=== PATIENT | female | born 1980 | race Caucasian/White ===

== ENCOUNTER 2017-09-10 18:17 | Emergency (ER) | payer OTHER ==
[2017-09-10] MEDS ORDERED: Aspirin Low Dose CHEW TAB* 81 MG PO ONE (21:05)
[2017-09-10 21:29] LABS: Hematocrit 41 % (35-47); Hemoglobin 13.6 g/dl (12.0-16.0); Mean Corpuscular HGB Conc 33 g/dl (31-36); Mean Corpuscular Hemoglobin 29 pg (27-31); Mean Corpuscular Volume 87 fL (80-97); Mean Platelet Volume 8 um3 (7.4-10.4); Red Blood Count 4.67 10^6/ul (4.0-5.4); Red Cell Distribution Width 13 % (10.5-15); White Blood Count 13.3 10^3/ul (3.5-10.8)
--- NOTE | 2017-09-10 21:42 | RAD ---
Indication: Chest pain. History of tobacco use. Comparison: September 21, 2014 Technique: Upright AP 2115 hours Report: Mild prominence of the lower lung zone interstitial markings without change. Negative for pleural effusion or pneumothorax. The heart, pulmonary vasculature, and mediastinal contours are unremarkable. IMPRESSION: No evidence for acute intrathoracic disease.
[2017-09-10 21:49] LABS: Albumin 3.8 g/dL (3.2-5.2); BUN/Creatinine Ratio 12.7 (8-20); Calcium 9.1 mg/dL (8.6-10.3); EGFR African American 160.8 (>60); EGFR Non-African American 125.1 (>60); Globulin 3.1 g/dL (2-4); Potassium 3.5 mmol/L (3.5-5.0); Total Bilirubin 0.3 mg/dL (0.2-1.0); Total Protein 6.9 g/dL (6.4-8.9)
[2017-09-10] MEDS ORDERED: Iohexol 350* (CONTRAST) 500 ML MDV IV ONE (21:51)
[2017-09-10] MEDS ORDERED: traMADol TAB* 50 MG PO ONE (22:56)
[2017-09-11 00:51] VITALS: BP 160/90
--- NOTE | 2017-09-11 07:37 | RAD ---
INDICATION: Pleuritic chest pain. COMPARISON: Comparison is made with a prior CT of the chest from October 28, 2013 and a prior chest x-ray study from September 10, 2017. TECHNIQUE: A CT angiogram of the chest was performed with intravenous following intravenous injection of 84 ml of Omnipaque 350 nonionic contrast. Contiguous axial sections were obtained from the lung apices through the lung bases. Images were reconstructed in the coronal and sagittal planes. FINDINGS: There is relatively homogeneous opacification of the pulmonary arteries. No intraluminal filling defect or pulmonary embolism is seen. The heart is within normal limits in size. No pericardial effusion is present. The thoracic aorta is normal in caliber and demonstrates homogeneous contrast opacification. There is a 2.8 x 2.4 cm mass present in the anterior mediastinum. This is located anterior to the ascending thoracic aorta and is unchanged from the prior study and likely of thymic origin. There are mildly prominent precarinal and subcarinal lymph nodes measuring up to 1 cm in transverse dimension which are unchanged. No enlarged hilar lymph nodes are seen. The lungs are clear. No pleural effusion is seen. Images of the upper abdomen demonstrate mild hepatomegaly and hepatic steatosis. No acute finding is seen. There is a moderate compression fracture involving the superior endplate of the L1 vertebral body which appears chronic although new from the study from 2013. IMPRESSION: 1. NO EVIDENCE FOR PULMONARY EMBOLISM. 2. 2.8 CM ANTERIOR MEDIASTINAL MASS UNCHANGED FROM THE PRIOR STUDY. 3. CHRONIC APPEARING COMPRESSION FRACTURE OF THE L1 VERTEBRAL BODY ALTHOUGH NEW FROM THE PREVIOUS EXAM. 4. MILD HEPATOMEGALY AND HEPATIC STEATOSIS.
--- NOTE | 2017-09-13 19:01 | ED ---
Veena Shahid Thomas, scribed for Nate Moreno MD on 09/10/17 at 2142 . HPI Chest Pain - HPI Summary HPI Summary: The pt is a 37 y/o F presenting to the ED c/o chest pain that began this afternoon. The pain is rated 7/10. The pain is aggravated by breathing and is alleviated by nothing. 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 Pt additionally c/o shortness of breath, heartburn, ankle pain, left back pain and left shoulder pain. Pt denies any trauma or blood clots. She is a smoker. - History of Current Complaint Chief Complaint: EDChestWallPain Time Seen by Provider: 09/10/17 20:39 Hx Obtained From: Patient Hx Last Menstrual Period: 10/05/2012 Onset/Duration: Started Hours Ago - This afternoon Timing: Constant Current Severity: Moderate Pain Intensity: 8 Pain Scale Used: 0-10 Numeric Chest Pain Location: Mid Sternal Chest Pain Radiates: Yes Chest Pain Radiates To:: Back - Left back, Shoulder - Left shouler Aggravating Factor(s): Movement Alleviating Factor(s): Other: Associated Signs and Symptoms: Positive: Other: - Chest pain, shortness of breath, heartburn, ankle pain, left back pain and left shoulder pain; NEGATIVE: trauma, blood clots - Allergy/Home Medications Allergies/Adverse Reactions: Allergies Allergy/AdvReac Type Severity Reaction Status Date / Time No Known Allergies Allergy Verified 05/01/15 15:08 PMH/Surg Hx/FS Hx/Imm Hx Previously Healthy: No Endocrine/Hematology History: Denies: Hx Diabetes, Hx Thyroid Disease Cardiovascular History: Denies: Hx Congestive Heart Failure, Hx Deep Vein Thrombosis, Hx Hypertension , Other Cardiovascular Problems/Disorders Respiratory History: Denies: Hx Asthma, Hx Chronic Obstructive Pulmonary Disease (COPD), Other Respiratory Problems/Disorders GI History: Denies: Hx Ulcer, Other GI Disorders History: Denies: Hx Renal Disease, Other Problems/Disorders - Surgical History Surgery Procedure, Year, and Place: Csections Infectious Disease History: No Infectious Disease History: Denies: Hx Hepatitis, Hx Human Immunodeficiency Virus (HIV), Traveled Outside the US in Last 30 Days - Family History Known Family History: Positive: Other - DVT - Social History Occupation: Unemployed Lives: With Family Alcohol Use: Rare Hx Substance Use: No Substance Use Type: Reports: None Hx Tobacco Use: Yes Smoking Status (MU): Current Every Day Smoker Review of Systems Negative: Fever, Chills Negative: Erythema Negative: Sore Throat Positive: Chest Pain, Other - Heart burn Positive: Shortness Of Breath. Negative: Cough Negative: Abdominal Pain, Vomiting, Nausea Negative: dysuria, hematuria Positive: Other - Ankle pain, left back pain, left shoulder pain. Negative: Myalgia, Edema Negative: Rash Neurological: Other - NEGATIVE: dizziness, trauma All Other Systems Reviewed And Are Negative: Yes Physical Exam - Summary Physical Exam Summary: Constitutional: Well-developed, Well-nourished, Alert. (-) Distressed. She is obese. Skin: Warm, Dry HENT: Normocephalic; Atraumatic Eyes: Conjunctiva normal Neck: Musculoskeletal ROM normal neck. (-) JVD, (-) Stridor, (-) Tracheal deviation Cardio: Rhythm regular, rate normal, Heart sounds normal; Intact distal pulses; The pedal pulses are 2+ and symmetric. Radial pulses are 2+ and symmetric. (-) Murmur Pulmonary/Chest wall: Effort normal. (-) Respiratory distress, (-) Wheezes, (-) Rales Abd: Soft, (-) Tenderness, (-) Distension, (-) Guarding, (-) Rebound Musculoskeletal: (-) Edema. There is no reproducible chest pain. Lymph: (-) Cervical adenopathy Neuro: Alert, Oriented x3 Psych: Mood and affect Normal Triage Information Reviewed: Yes Vital Signs On Initial Exam: Initial Vitals Temp Pulse Resp BP Pulse Ox 97.2 F 88 18 163/106 96 09/10/17 18:21 09/10/17 18:21 09/10/17 18:21 09/10/17 18:21 09/10/17 18:21 Vital Signs Reviewed: Yes - Efren Coma Scale Coma Scale Total: 15 Diagnostics - Vital Signs Vital Signs Temp Pulse Resp BP Pulse Ox 09/10/17 18:21 97.2 F 88 18 163/106 96 - Laboratory Result Diagrams: 09/10/17 21:24 09/10/17 21:24 Lab Statement: Any lab studies that have been ordered have been reviewed, and results considered in the medical decision making process. - Radiology CXR Xray Interpretation: No Acute Changes - No evidence for acute intrathoracic disease. ED physician has reviewed this report and agrees. Radiology Interpretation Completed By: Radiologist - CT CTA Chest/Thorax CT Interpretation: No Acute Changes - No focal consolidation, pleural effusion or pneumothorax. No evidence for pulmonary embolism or aortic dissection. 3.1cmx2.5cm round mass in the anterior superior mediastinum which could represent adenopathy or a thymic mass. Probable hepatomegaly. Chronic appearing compression fracture of L2. ED physician has reviewed this report and agrees. CT Interpretation Completed By: Radiologist Re-Evaluation - Re-Evaluation First Eval Re-Evaluation Time: 23:14 Change: Unchanged Comment: She has reproducible chest pain when she moves her left shoulder over to the right. She was informed of the diagnoseses of thymic mass versus mediastinal lymphadenopathy. Chest Pain Course/Dx - Course Assessment/Plan: The pt is a 37 y/o F presenting to the ED c/o chest pain that began this afternoon. The pain is rated 7/10. The pain is aggravated by breathing and is alleviated by nothing. 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 Pt additionally c/o shortness of breath, heartburn, ankle pain, left back pain and left shoulder pain. Pt denies any trauma or blood clots. She is a smoker. In the ED course the patient was given Aspirin. Bloodwork shows WBC 13.3. The CXR indicates no evidence for acute intrathoracic disease. The CTA Chest/Thorax shows no focal consolidation, pleural effusion or pneumothorax, no evidence for pulmonary embolism or aortic dissection, 3.1cmx2.5cm round mass in the anterior superior mediastinum which could represent adenopathy or a thymic mass, probable hepatomegaly and chronic appearing compression fracture of L2. She was informed of the diagnoseses of thymic mass versus mediastinal lymphadenopathy. She is diagnosed with chest pain unspecified, thymic mass, mediastinal lymphadenopathy, and HTN. She was given information about the DASH diet. The patient is signed out to the next ED attending at shift change pending second troponin. She will follow up with Dr. Cruz in 2-3 days. - Diagnoses Provider Diagnoses: Chest pain, unspecified, Thymic mass, HTN (hypertension), Mediastinal lymphadenopathy Discharge - Discharge Plan Condition: Fair Disposition: OTHER Discharge Disposition Comment: Sign out to the next ED attending at shift change pending second troponin. Patient Education Materials: DASH Eating Plan (ED), Hypertension (ED), Chest Pain (ED) Referrals: Gudelia Crzu, BUGGY OPERATOR [Primary Care Provider] - 2 Days Additional Instructions: Follow up with Gudelia Cruz NP, in two days. Return to the emergency department for any new or worsening symptoms. The documentation as recorded by the Veena fan Thomas accurately reflects the service I personally performed and the decisions made by , Nate Moreno MD.
== END 2017-09-11 00:51 | disposition home or self-care (01) ==
LOC: ED 18:17
DX: R07.89 Other chest pain (principal); D15.0 Benign neoplasm of thymus; I10 Essential (primary) hypertension; R59.0 Localized enlarged lymph nodes; R06.02 Shortness of breath; R12 Heartburn; M25.579 Pain in unspecified ankle and joints of unspecified foot; M25.512 Pain in left shoulder; M54.9 Dorsalgia, unspecified; F17.210 Nicotine dependence, cigarettes, uncomplicated
CPT/HCPCS: 36415; 71010; 71275; 80053; 83605; 84484; 85025; 93005; 99283; A9270-GY; Q9967

== ENCOUNTER 2017-10-17 17:28 | Emergency (ER) | payer MEDICAID, OTHER ==
[2017-10-17 17:52] VITALS: BP 142/76
--- NOTE | 2017-10-17 18:38 | RAD ---
INDICATION: Cough COMPARISON: September 10, 2017 TECHNIQUE: PA and lateral dual-energy views were obtained. FINDINGS: Bones/Soft Tissues: There are no acute bony findings. Cardiomediastinal: The cardiomediastinal silhouette is normal. Lungs: There are no infiltrates. Pleura: There are no pleural effusions. Other: None IMPRESSION: NO ACTIVE DISEASE
[2017-10-17] MEDS ORDERED: Ketorolac INJ* 60 MG/2 ML VIAL IM ONE (18:54)
--- NOTE | 2017-10-17 21:11 | UC ---
Azul Shahid Alfonso, scribed for Kavon Del Rosario MD on 10/17/17 at 1802 . General HPI - HPI Summary HPI Summary: This patient is a 37 year old F presenting to [facility] accompanied by male with a chief complaint of an unproductive cough since a few weeks ago. The patient rates the aching pain 6/10 in severity. Symptoms aggravated and alleviated by nothing. Patient reports diaphoresis, sinus congestion, sore throat (secondary to cough), and rash (bites that are currently resolved). Patient denies fever. LMP 09/27/17. - History of Current Complaint Chief Complaint: UCGeneralIllness Stated Complaint: SORE THROAT Time Seen by Provider: 10/17/17 17:52 Hx Obtained From: Patient Hx Last Menstrual Period: 09/27/17 Onset/Duration: Gradual Onset, Lasting Weeks, Still Present Timing: Constant Current Severity: Moderate Pain Intensity: 6 - /10 Aggravating: nothing Alleviating: nothing Associated Signs & Symptoms: Positive: Other - Patient reports diaphoresis, sinus congestion, sore throat (secondary to cough), and rash (bites that are currently resolved). Patient denies fever. - Allergy/Home Medications Allergies/Adverse Reactions: Allergies Allergy/AdvReac Type Severity Reaction Status Date / Time No Known Allergies Allergy Verified 10/17/17 17:43 Home Medications: Home Medications Cholecalciferol [Vitamin D] 1,000 unit PO WEEKLY 10/17/17 [History Confirmed ] PMH/Surg Hx/FS Hx/Imm Hx Previously Healthy: Yes - Surgical History Surgical History: Yes Surgery Procedure, Year, and Place: Csections - Family History Known Family History: Positive: Other - DVT - Social History Alcohol Use: Rare Substance Use Type: None Smoking Status (MU): Current Every Day Smoker Length of Time of Smoking/Using Tobacco: 1 PPD - Immunization History Most Recent Influenza Vaccination: 2016 Review of Systems Constitutional: Other - diaphoresis, Negative fever Skin: Rash - rash (bites that are currently resolved) ENT: Sore Throat, Sinus Congestion Respiratory: Cough All Other Systems Reviewed And Are Negative: Yes Physical Exam Triage Information Reviewed: Yes Vital Signs: Initial Vital Signs Temp 98.1 F 10/17/17 17:45 Pulse 93 10/17/17 17:45 Resp 22 10/17/17 17:45 BP 142/76 10/17/17 17:45 Pulse Ox 98 10/17/17 17:45 Vital Signs Reviewed: Yes - Additional Comments VITAL SIGNS: Reviewed. GENERAL: Patient is a well-developed and obese female who is lying comfortable in the stretcher. Patient is not in any acute respiratory distress. HEAD AND FACE: Normocephalic EYES: PERRLA, EOMI x 2. EARS: Hearing grossly intact. MOUTH: Oropharynx within normal limits. NECK: Supple, trachea is midline, no adenopathy, no JVD, no carotid bruit. CHEST: Symmetric, no tenderness at palpation LUNGS: Coarse breath sounds bilaterally. No wheezing or crackles. CVS: Regular rate and rhythm, S1 and S2 present, no murmurs or gallops appreciated. ABDOMEN: Soft, non-tender. Bowel sounds are normal. No abdominal abnormal pulsations. EXTREMITIES: Full ROM in all major joints, no edema, no cyanosis or clubbing. NEURO: Alert and oriented x 3. No acute neurological deficits. Speech is normal and follows commands. SKIN: Dry and warm Diagnostics - Laboratory Diagnostic Studies Completed/Ordered: CXR reveals, per radiologist, NO ACTIVE DISEASE. [facility] physician has reviewed this radiology report. Course/Dx - Course Course Of Treatment: This patient is a 37 year old F presenting to [facility] accompanied by male with a chief complaint of an unproductive cough since a few weeks ago. The patient rates the aching pain 6/10 in severity. Symptoms aggravated and alleviated by nothing. Patient reports diaphoresis, sinus congestion, sore throat (secondary to cough), and rash (bites that are currently resolved). Patient denies fever. LMP 09/27/17. CXR reveals, per radiologist, NO ACTIVE DISEASE. [facility] physician has reviewed this radiology report. Patient will be discharged with prescription and follow up from PCP. The patient is agreeable with this plan. The patient is hemodynamically stable, alert and oriented x3. - Differential Dx - Multi-Symptom Differential Diagnoses: Other - URI, Flu, pharyngitis, Provider Diagnoses: Bronchitis. Discharge - Discharge Plan Condition: Stable Disposition: HOME Prescriptions: Promethazine W/Codeine [Promethazine/Codeine] 5 ml PO TID #90 ml MDD 15 ml Patient Education Materials: Acute Bronchitis (ED) Referrals: Gudelia Cruz NP [Primary Care Provider] - 3 Days Additional Instructions: RETURN TO THE EMERGENCY DEPARTMENT OR CONVENIENT CARE FOR CHANGING OR WORSENING SYMPTOMS. The documentation as recorded by the Azul fan Alfonso accurately reflects the service I personally performed and the decisions made by , Kavon Del Rosario MD.
== END 2017-10-17 19:24 | disposition home or self-care (01) ==
LOC: UCEAST 17:28
DX: J40 Bronchitis, not specified as acute or chronic (principal); R61 Generalized hyperhidrosis; F17.200 Nicotine dependence, unspecified, uncomplicated
CPT/HCPCS: 71020; 87502; 87651; 96372; 99212; G0463; J1885

== ENCOUNTER 2017-11-15 09:54 | Day surgery (SDC) | payer OTHER ==
[~2017-11-15 09:54] MED LIST: Buffered Lidocaine 0.9% SYRIN* 5 ML/SYR SYRINGE INTRADERM ONE; Famotidine TAB* 20 MG PO ONE; Metoclopramide TAB* 10 MG PO ONE; Sodium Citrate/Citric Acid* 15 ML UDC PO ONE
[2017-11-15] MEDS ORDERED: Buffered Lidocaine 0.9% SYRIN* 5 ML/SYR SYRINGE ONE (10:03)
[2017-11-15] MEDS ORDERED: Famotidine TAB* 20 MG ONE (10:03)
[2017-11-15] MEDS ORDERED: Sodium Citrate/Citric Acid* 15 ML UDC ONE (10:03)
[2017-11-15] MEDS ORDERED: Metoclopramide TAB* 10 MG ONE (10:03)
[2017-11-15] MEDS ORDERED: Lidocaine 1% MPF wEPI 200,000* 30 ML SDV ONE (10:56)
[2017-11-15] MEDS ORDERED: Bacitracin OINTMENT* 0.5% 0.5 oz TUBE ONE (10:56)
[2017-11-15] MEDS ORDERED: Oxymetazoline 0.05% NASAL SPR* 15 ML BTL ONE (10:56)
[2017-11-15] MEDS ORDERED: Lidocaine 4% TOPICAL* 50 ML TOP.SOLN ONE (10:56)
[2017-11-15] MEDS ORDERED: fentaNYL* 50 MCG/ML 2 ML VIAL (100 MCG VIAL) ONE ×2 (11:17→12:07)
[2017-11-15] MEDS ORDERED: Propofol* 10 MG/ML 20 ML BTL IV PUSH ONE (11:17)
[2017-11-15] MEDS ORDERED: DiMENhydriNATE IV* 50 MG/ML VIAL IV PUSH PRN (11:42)
[2017-11-15] MEDS ORDERED: HYDROcodone/ACETAMIN 5-325 MG* 1 TAB PO PRN (11:42)
[2017-11-15] MEDS ORDERED: fentaNYL* 50 MCG/ML 2 ML VIAL (100 MCG VIAL) IV PRN (11:42)
[2017-11-15] MEDS ORDERED: Naloxone* 0.4 MG/ML 1 ML VIAL IV PRN (11:42)
[2017-11-15] MEDS ORDERED: Lidocaine 2% PF * 5 ML VIAL ONE (12:01)
[2017-11-15] MEDS ORDERED: HYDROcodone/ACETAMIN 5-325 MG* 1 TAB ONE (12:35)
[2017-11-15 13:06] VITALS: BP 131/91
--- NOTE | 2017-11-15 23:34 | OP ---
DATE OF OPERATION: 11/15/17 - SDS DATE OF : 82 SURGEON: Vishal Georges MD ANESTHESIOLOGIST: Paras Munguia MD ANESTHESIA: General laryngeal mask airway anesthesia. PRE-OP DIAGNOSIS: Septal deviation. POST-OP DIAGNOSIS: Septal deviation. OPERATIVE PROCEDURE: Nasal septoplasty. COMPLICATIONS: None. DISPOSITION: Good. SPECIMENS: None. ESTIMATED BLOOD LOSS: Minimum. DESCRIPTION OF PROCEDURE: The patient was taken to the operating room, placed in the supine position on the operating table. General anesthesia was induced and she was maintained with laryngeal mask airway anesthesia. Her nose was packed with cottonoids with oxymetazoline and 4% lidocaine. She was then draped for the surgery. After several minutes, the packs were removed and her septum and inferior turbinates were injected with 1% lidocaine with 1:100,000 epinephrine. Incision was made in the right anterior septum. Mucoperichondrial flap was raised. Bony cartilaginous junction was opened. A contralateral posterior flap was raised. The double action scissors were used to make a superior cut on the anterior bony cartilage and inferior to this was removed with Kvng. Scheller knife was used to create some cartilaginous cuts to remove a posterior window of the anterior cartilaginous septum. Spurring was removed from the maxillary crest. The cartilage was morselized and placed back into place. This took care of the deviations. The hemitransfixion incision was closed with a 4-0 simple interrupted chromic gut and a 4-0 gut quilting stitch was placed. Elmed was placed submucosally into the inferior turbinates and then these were outfractured. Magnetic splints smeared with Bacitracin were placed on either side and sutured in place with a Prolene. The patient tolerated this well, no complications, transferred to the recovery room in stable condition. [id number]/[facility] #: [id number] [facility]
== END 2017-11-15 13:07 | disposition home or self-care (01) ==
LOC: OR 09:54
PROVIDERS: ATTEND Otolaryngology
DX: J34.2 Deviated nasal septum (principal); R09.81 Nasal congestion; F17.210 Nicotine dependence, cigarettes, uncomplicated; E55.9 Vitamin D deficiency, unspecified; G47.00 Insomnia, unspecified
CPT/HCPCS: A9270-GY; J2001; J2704; J3010

== ENCOUNTER 2019-04-07 09:21 | Emergency (ER) | payer OTHER ==
[2019-04-07] MEDS ORDERED: NS 0.9% 1000 ML** 1,000 ML IV ONE (09:42)
[2019-04-07] MEDS ORDERED: diPHENhydraMINE IV* 50 MG/ML 1 ml VIAL (BENADRYL) IV ONE (09:43)
[2019-04-07] MEDS ORDERED: Metoclopramide IV* 5 MG/ML 2 ML VIAL IV ONE (09:43)
--- NOTE | 2019-04-07 09:44 | ED ---
Headache - HPI Summary HPI Summary: A 39 y/o female presents to [facility] with a chief complaint of headaches for the past three weeks. Per triage note the patient has also had nausea, blurred vision, and has been photophobic. She has been taking Ibuprofen and she rated her current pain as a 0/10 in severity. She describes her blurry vision as seeing some blurred words when reading a paragraph. She claims that she has been getting headaches all day every day for three weeks. Coughing or laughing aggravates her pain. She also notes that when waking up or falling asleep her pain is worse. She denies fever, chills, cough, neck stiffness, neck pain, or being under stress. The patient has a Hx of migraines but reports that this is different. She notes smoking 1.5 PPD and marijuana use but denies EtOH use. SHx of C-sections and nose surgery for deviated septum. She denies any allergies to medication or a Hx of asthma. Her LNMP was last week. She denies having a recent CT or MRI done. - History Of Current Complaint Chief Complaint: EDHeadache Stated Complaint: HEADACHES PER PT Time Seen by Provider: 04/07/19 09:40 Hx Obtained From: Patient Hx Last Menstrual Period: 09/27/17 Onset/Duration: Gradual Onset, Started weeks ago Initially Headache Was: Mild Currently Pain Is: Current Pain Scale(0-10)= - 0 Timing: Constant, Weeks Character: Unable To Describe Location of Headache: Diffuse Aggravating Factor: Other - cough or laugh Allevating Factors: Nothing Associated Signs And Symptoms: Negative - fever, chills, neck pain or stiffness , stress, Nausea, Visual Changes - Allergies/Home Medications Allergies/Adverse Reactions: Allergies Allergy/AdvReac Type Severity Reaction Status Date / Time LOBSTER Allergy Severe Rash And Uncoded 11/15/17 10:09 Itching PMH/Surg Hx/FS Hx/Imm Hx Endocrine/Hematology History: Denies: Hx Diabetes, Hx Thyroid Disease Cardiovascular History: Reports: Hx Hypertension - NO MEDS Denies: Hx Congestive Heart Failure, Hx Deep Vein Thrombosis, Hx Pacemaker/ ICD, Other Cardiovascular Problems/Disorders Respiratory History: Reports: Other Respiratory Problems/Disorders - SMOKER Denies: Hx Asthma, Hx Chronic Obstructive Pulmonary Disease (COPD) GI History: Denies: Hx Ulcer, Other GI Disorders History: Denies: Hx Renal Disease, Other Problems/Disorders Sensory History: Reports: Hx Contacts or Glasses Denies: Hx Hearing Aid Opthamlomology History: Reports: Hx Contacts or Glasses Neurological History: Reports: Hx Migraine Psychiatric History: Reports: Hx Depression - HX OF - Surgical History Surgery Procedure, Year, and Place: Csections 1999,2001,2006,2008 [facility] [place] EPIDURAL ANESTHESIA. TUBAL LIGATION 2008 [facility] [place] Hx Anesthesia Reactions: No Infectious Disease History: No Infectious Disease History: Denies: Hx Hepatitis, Hx Human Immunodeficiency Virus (HIV), Traveled Outside the [place] in Last 30 Days - Family History Known Family History: Positive: Other - DVT - Social History Alcohol Use: None Hx Substance Use: No Substance Use Type: Reports: Marijuana Substance Use Comment - Amount & Last Used: EVERY DAY MARIJUANA SMOKER Hx Tobacco Use: Yes Smoking Status (MU): Heavy Every Day Tobacco Smoker Amount Used/How Often: 17 YR HX 1PPD Length of Time of Smoking/Using Tobacco: 1 PPD Review of Systems Negative: Fever, Chills Positive: Blurred Vision Negative: Cough Positive: Nausea Positive: Other - negative: neck pain or neck stiffness Positive: Headache Positive: Other - negative: stress All Other Systems Reviewed And Are Negative: Yes Physical Exam - Summary Physical Exam Summary: GENERAL: Patient is a well-developed and nourished F who is lying comfortable in the stretcher. Patient is not in any acute respiratory distress. HEAD AND FACE: Normocephalic EYES: PERRLA, EOMI x 2. EARS: Hearing grossly intact. MOUTH: Oropharynx within normal limits. NECK: Supple, trachea is midline, no adenopathy, no JVD, no carotid bruit. CHEST: Symmetric, no tenderness at palpation LUNGS: Clear to auscultation bilaterally. No wheezing or crackles. CVS: Regular rate and rhythm, S1 and S2 present, no murmurs or gallops appreciated. ABDOMEN: Soft, non-tender. Bowel sounds are normal. No abnormal abdominal pulsations. EXTREMITIES: Full ROM in all major joints, no edema, no cyanosis or clubbing. NEURO: Alert and oriented x 3. No acute neurological deficits. Speech is normal and follows commands. SKIN: Dry and warm Triage Information Reviewed: Yes Vital Signs On Initial Exam: Initial Vitals Temp Pulse Resp BP Pulse Ox 97.1 F 77 16 198/100 97 04/07/19 09:31 04/07/19 09:31 04/07/19 09:31 04/07/19 09:31 04/07/19 09:31 Vital Signs Reviewed: Yes - [place] Coma Scale Best Eye Response: 4 - Spontaneous Best Motor Response: 6 - Obeys Commands Best Verbal Response: 5 - Oriented Coma Scale Total: 15 Diagnostics - Vital Signs Vital Signs Temp Pulse Resp BP Pulse Ox 04/07/19 09:31 97.1 F 77 16 198/100 97 - Laboratory Result Diagrams: 04/07/19 09:53 04/07/19 09:53 Lab Statement: Any lab studies that have been ordered have been reviewed, and results considered in the medical decision making process. - CT Brain CT Interpretation Completed By: Radiologist Summary of CT Findings: NO ACUTE INTRACRANIAL PATHOLOGY. ED physician has reviewed this imaging report. Re-Evaluation - Re-Evaluation First Eval Re-Evaluation Time: 12:01 Change: Improved Comment: Patient's headache is gone but BP is high. Second Eval Re-Evaluation Time: 13:47 Change: Improved Comment: Discussed results and plan for DC. Headache Course/Dx - Course Course Of Treatment: A 39 y/o female presents to [facility] with a chief complaint of headaches for the past three weeks. The physical exam was unremarkable. In the ED course the patient was given Benadryl IV, Reglan IV, Toradol IV, Labetalol IV, and and Sodium Chloride IV. Bloodwork, chemistries and urines obtained. Urine Blood 2+ and Ur Squamous Epith Cells present. Brain CT impression: NO ACUTE INTRACRANIAL PATHOLOGY. I discussed results with patient, and she reports feeling better. She is hemodynamically stable and safe for discharge. Strict return precautions given and she will otherwise follow up with her PCP. - Diagnoses Provider Diagnoses: Headache, Elevated blood pressure reading Discharge - Sign-Out/Discharge Documenting (check all that apply): Patient Departure - DC Patient Received Moderate/Deep Sedation with Procedure: No - Discharge Plan Condition: Stable Disposition: HOME Patient Education Materials: Acute Headache (DC) Referrals: Gudelia Cruz BARREL DRAINER [Primary Care Provider] - (1-3 days) Additional Instructions: Follow up with your primary care physician in 1-3 days. RETURN TO THE EMERGENCY DEPARTMENT FOR CHANGING OR WORSENING SYMPTOMS. - Billing Disposition and Condition Condition: STABLE Disposition: Home - Attestation Statements Document Initiated by Scribe: Yes Documenting Scribe: Shayne Rodriguez Provider For Whom Scribe is Documenting (Include Credential): Debbie Yanes MD Scribe Attestation: I, Shayne Rodriguez, scribed for Debbie Yanes MD on 04/07/19 at 1720. Scribe Documentation Reviewed: Yes Provider Attestation: The documentation as recorded by the [email or web address] accurately reflects the service I personally performed and the decisions made by me, Sony Yanes MD Status of Scribe Document: Viewed
[2019-04-07 10:02] LABS: ABS Basophils 0.1 10^3/ul (0-0.2); ABS Eosinophils 0.4 10^3/ul (0-0.6); ABS Monocytes 0.7 10^3/ul (0-0.8); ABS Neutrophils 7.5 10^3/ul (1.5-7.7); Eosinophil % 3.2 %; Hematocrit 42 % (35-47); Hemoglobin 14.1 g/dL (12.0-16.0); Lymphocyte % 25.8 %; Mean Corpuscular HGB Conc 34 g/dL (31-36); Mean Corpuscular Hemoglobin 29 pg (27-31); Mean Corpuscular Volume 84 fL (80-97); Platelet Count 443 10^3/uL (150-450); Red Blood Count 4.95 10^6 /uL (3.70-4.87); Red Cell Distribution Width 14 % (10-15); White Blood Count 11.8 10^3/uL (3.5-10.8)
[2019-04-07 10:22] LABS: ALT 15 U/L (7-52); AST 15 U/L (13-39); Albumin/Globulin Ratio 1.3 (1-3); Alkaline Phosphatase 70 U/L (34-104); Anion Gap 5 mmol/L (2-11); BUN/Creatinine Ratio 14.3 (8-20); Blood Urea Nitrogen 10 mg/dL (6-24); CO2 Carbon Dioxide 25 mmol/L (22-32); CRP High Sensitivity 13.02 mg/L (<2.00); Calcium 9.4 mg/dL (8.6-10.3); Chloride 105 mmol/L (101-111); EGFR African American 113.3 (>60); EGFR Non-African American 93.6 (>60); Glucose 103 mg/dL (70-100); Magnesium 1.8 mg/dL (1.9-2.7); Potassium 4.2 mmol/L (3.5-5.0); Sodium 135 mmol/L (135-145)
[2019-04-07 10:27] LABS: Urine Appearance Clear; Urine Bacteria Absent (Absent); Urine Bilirubin Negative (Negative); Urine Blood 2+ (Negative); Urine Color Straw; Urine Glucose Negative (Negative); Urine Ketones Negative (Negative); Urine Nitrite Negative (Negative); Urine Protein Negative (Negative); Urine Red Blood Cell Trace(0-2/hpf) (Absent); Urine Specific Gravity 1.003 (1.010-1.030); Urine Squamous Epithelial Cell Present (Absent); Urine Urobilinogen Negative (Negative); Urine White Blood Cell Absent (Absent)
[2019-04-07 10:28] LABS: HCG Pregnancy < 0.60 mIU/mL
[2019-04-07] MEDS ORDERED: Ketorolac INJ* 30 MG/ML 1 ML VIAL IV PUSH ONE (10:37)
[2019-04-07] MEDS ORDERED: Labetalol IV* 5 MG/ML 20 ML VIAL IV PUSH ONE (11:10)
[2019-04-07] MEDS ORDERED: cloNIDine TAB* 0.1 MG PO ONE (12:01)
[2019-04-07 13:54] VITALS: BP 143/90
== END 2019-04-07 14:03 | disposition home or self-care (01) ==
LOC: ED 09:21
DX: R51 Headache (principal); R03.0 Elevated blood-pressure reading, without diagnosis of hypertension; Z91.013 Allergy to seafood; F17.200 Nicotine dependence, unspecified, uncomplicated
CPT/HCPCS: 36415; 70450; 80053; 81003; 81015; 83735; 84702; 85025; 86141; 96361; 96374; 96375; 99283; A9270-GY; J1200; J1885; J2765

== ENCOUNTER → 2019-04-09 14:20 | Emergency (ER) | payer OTHER ==
[~2019-04-09 14:20] MED LIST changes: -Buffered Lidocaine 0.9% SYRIN* 5 ML/SYR SYRINGE INTRADERM ONE; +Dexamethasone IV* 4 MG/ML 5 ML VIAL (20 MG) IVPB ONE; -Famotidine TAB* 20 MG PO ONE; +Lactated Ringers 1000 ML Bag* 1,000 ML IV ONE; +Magnesium Sulfate 2 GM IV* 2 GM/50 ML BAG IVPB ONE; +Metoclopramide IV* 5 MG/ML 2 ML VIAL IV SLOW PU ONE; -Metoclopramide TAB* 10 MG PO ONE; +NS 0.9% 1000 ML** 1,000 ML IV ONE; -Sodium Citrate/Citric Acid* 15 ML UDC PO ONE; +diPHENhydraMINE IV* 50 MG/ML 1 ml VIAL (BENADRYL) IV ONE
--- NOTE | 2019-04-09 14:53 | ED ---
Headache - HPI Summary HPI Summary: Pt is a 39 y/o F presenting to the ED with a chief complaint of a neurological deficit. CODE MIMS CALLED: 1426. The pt has been experiencing headaches intermittently over the last couple of weeks. According to the pts significant other, she begins to act weird when she gets headaches. Additionally, today, she experienced numbness to an unspecified portion of the body that was brief and very quickly resolved, but her headache is persistent. - History Of Current Complaint Chief Complaint: EDNeurologicalDeficit Stated Complaint: HIGH BP/RT SIDED NUMBNESS PER PT Time Seen by Provider: 04/09/19 14:32 Hx Obtained From: Patient, Family/Delivery Driver/Customer Service - significant other Hx Last Menstrual Period: 09/27/17 Onset/Duration: Gradual Onset, Started days ago, Still Present Initially Headache Was: Moderate Currently Pain Is: Moderate Timing: Intermittent, Lasting:, Hours Character: Typical Headache Aggravating Factor: Nothing Allevating Factors: Nothing Associated Signs And Symptoms: Other (Noted In Comments) - numbness, acting "weird" per s/o - Allergies/Home Medications Allergies/Adverse Reactions: Allergies Allergy/AdvReac Type Severity Reaction Status Date / Time LOBSTER Allergy Severe Rash And Uncoded 04/09/19 14:23 Itching Home Medications: Home Medications Atenolol 25 mg PO DAILY 04/09/19 [History Confirmed 04/09/19] Ibuprofen TAB* [Advil TAB*] 400 mg PO Q6H PRN 04/09/19 [History Confirmed ] PMH/Surg Hx/FS Hx/Imm Hx Previously Healthy: Yes Endocrine/Hematology History: Denies: Hx Diabetes, Hx Thyroid Disease Cardiovascular History: Reports: Hx Hypertension - NO MEDS Denies: Hx Congestive Heart Failure, Hx Deep Vein Thrombosis, Hx Pacemaker/ ICD, Other Cardiovascular Problems/Disorders Respiratory History: Reports: Other Respiratory Problems/Disorders - SMOKER Denies: Hx Asthma, Hx Chronic Obstructive Pulmonary Disease (COPD) GI History: Denies: Hx Ulcer, Other GI Disorders History: Denies: Hx Renal Disease, Other Problems/Disorders Sensory History: Reports: Hx Contacts or Glasses Denies: Hx Hearing Aid Opthamlomology History: Reports: Hx Contacts or Glasses Neurological History: Reports: Hx Migraine Psychiatric History: Reports: Hx Depression - HX OF - Surgical History Surgery Procedure, Year, and Place: Csections 1999,2001,2006,[place] [facility] [place] [facility] [place] EPIDURAL ANESTHES[place]. TUBAL LIGATION 2009 [facility] [place] [facility] [place] Hx Anesthesia Reactions: No Infectious Disease History: No Infectious Disease History: Denies: Hx Hepatitis, Hx Human Immunodeficiency Virus (HIV), Traveled Outside the [place] in Last 30 Days - Family History Known Family History: Positive: Other - DVT - Social History Alcohol Use: None Hx Substance Use: No Substance Use Type: Reports: Marijuana Substance Use Comment - Amount & Last Used: EVERY DAY MARIJUANA SMOKER Hx Tobacco Use: Yes Smoking Status (MU): Heavy Every Day Tobacco Smoker Amount Used/How Often: 18 YR HX 1PPD Length of Time of Smoking/Using Tobacco: 1 PPD Review of Systems Positive: Other - AMS w/ headaches Positive: Headache, Numbness All Other Systems Reviewed And Are Negative: Yes Physical Exam - Summary Physical Exam Summary: Constitutional: Obese, Alert. (-) Distressed Skin: Warm, Dry HENT: Normocephalic; Atraumatic Eyes: Conjunctiva normal Neck: Musculoskeletal ROM normal neck. (-) JVD, (-) Stridor, (-) Tracheal deviation Cardio: Rhythm regular, rate normal, Heart sounds normal; Intact distal pulses; The pedal pulses are 2+ and symmetric. Radial pulses are 2+ and symmetric. Pulmonary/Chest wall: Effort normal. (-) Respiratory distress, (-) Wheezes, (-) Rales Abd: Soft, (-) tenderness, (-) Distension, (-) Guarding, (-) Rebound Musculoskeletal: (-) Edema Neuro: Alert, Oriented x3 Psych: Mood and affect Normal Triage Information Reviewed: Yes Vital Signs On Initial Exam: Initial Vitals Temp Pulse Resp BP Pulse Ox 97.8 F 73 20 000/00 97 04/09/19 14:22 04/09/19 14:22 04/09/19 14:22 04/09/19 14:22 04/09/19 14:22 Vital Signs Reviewed: Yes - Efren Coma Scale Best Eye Response: 4 - Spontaneous Best Motor Response: 6 - Obeys Commands Best Verbal Response: 5 - Oriented Coma Scale Total: 15 Diagnostics - Vital Signs Vital Signs Temp Pulse Resp BP Pulse Ox 04/09/19 14:22 97.8 F 73 20 000/00 97 - Laboratory Result Diagrams: 04/09/19 14:58 04/09/19 14:58 Lab Statement: Any lab studies that have been ordered have been reviewed, and results considered in the medical decision making process. - Radiology CXR Radiology Interpretation Completed By: Radiologist Summary of Radiographic Findings: No active cardiopulmonary disease is noted. ED physician has reviewed this report. - CT Brain CT CT Interpretation Completed By: Radiologist Summary of CT Findings: No evidence for gross acute infarct, mass effect, or hemorrhage. ED physician has reviewed this report. - EKG 1505 Cardiac Rate: NL - 71bpm EKG Rhythm: Sinus Rhythm ST Segment: Normal Ectopy: None Summary of EKG Findings: EKG at 1505 shows NSR at 71bpm with old Q-waves in lead III, as compared to 09/10/17. His HR also decreased from 96 to 71. There is no STEMI and no acute change. National Institutes Of Health - NIH Scale Level of Consciousness: Alert/Keenly Responsive Ask Patient the Month and His/Her Age: Both Correct Ask Pt to Open/Close Eyes and Emery Wheel Worker/Release Non-Paretic Hand: Both Correctly Best Gaze (Only Horizontal Eye Movement): Normal Visual Field Testing: No Visual Loss Facial Paresis-Pt to Smile & Close Eyes or Grimace Symmetry: Normal/Symmetrical Motor Function - Right Arm: No Drift-Holds 10 Seconds Motor Function - Left Arm: No Drift-Holds 10 Seconds Motor Function - Right Leg: No Drift-Holds 10 Seconds Motor Function - Left Leg: No Drift-Holds 10 Seconds Limb Ataxia-Must be out of Proportion to Weakness Present: Absent Sensory (Use Pinprick to Test Arms/Legs/Trunk/Face): Normal Best Language (Describe Picture, Name Items): No Aphasia Dysarthria (Read Several Words): Normal Extinction and Inattention: No Abnormality Total Score: 0 Re-Evaluation - Re-Evaluation 1st re-eval Re-Evaluation Time: 16:38 Change: Improved Comment: Pt states that her headache is better. Her BP is much better, and the pt is stable. Dr. Jerry states that she is safe for discharge. Headache Course/Dx - Course Course Of Treatment: Pt is a 39 y/o F presenting to the ED with a chief complaint of a neurological deficit. CODE MIMS CALLED: 1426. The pt has been experiencing headaches intermittently over the last couple of weeks. According to the pts significant other, she begins to act weird when she gets headaches. Additionally, today, she experienced numbness to an unspecified portion of the body that was brief and very quickly resolved, but her headache is persistent. Brain CT shows: no evidence for gross acute infarct, mass effect , or hemorrhage. EKG at 1505 shows NSR at 71bpm with old Q-waves in lead III, as compared to 09/10/17. His HR also decreased from 96 to 71. There is no STEMI and no acute change. CXR shows: No active cardiopulmonary disease is noted. As of 1637, the pt's headache is much better and she is stable. Her BP has decreased. I spoke with her about talking to her PCP about a different blood pressure medication, and Dr. Jerry states that she is safe for discharge. - Diagnoses Provider Diagnoses: Headache, HTN (hypertension) Discharge - Sign-Out/Discharge Documenting (check all that apply): Patient Departure Patient Received Moderate/Deep Sedation with Procedure: No - Discharge Plan Condition: Stable Disposition: HOME Patient Education Materials: Weight Management (ED), Acute Headache (ED), Chronic Hypertension (ED) Referrals: Gudelia Cruz CAPPER MACHINE OPERATOR [Primary Care Provider] - Additional Instructions: Please follow up with your primary care provider as soon as possible, and talk about some different medication options than what you are on. Return to the ED with any new or worsening symptoms. - Billing Disposition and Condition Condition: STABLE Disposition: Home - Attestation Statements Document Initiated by Daylin: Yes Documenting Scribe: Nikki Scott Provider For Whom Daylin is Documenting (Include Credential): Uvaldo Bolden MD. Scribe Attestation: I, Nikki Scott, scribed for Uvaldo Bolden MD. on 04/09/19 at 1718. Scribe Documentation Reviewed: Yes Provider Attestation: The documentation as recorded by the Nikki fan accurately reflects the service I personally performed and the decisions made by me, Uvaldo Bolden MD. Status of Scribe Document: Viewed Consult Consult: [address] Jerry who stated that the pt is neurologically stable. He performed an NIH scale and he got a score of 0. At this point, given the negative CT scan and lack of neurological findings, this presentation is probably just a headache, which we will be treating. If it gets better, the pt can be discharged, and if it does not get better, Dr. Jerry stated he will consider admitting her for observation. 1638 - Dr. Jerry states that the patient is safe for discharge and that her BP is stable.
[2019-04-09 15:10] LABS: ABS Basophils 0.2 10^3/ul (0-0.2); ABS Eosinophils 0.3 10^3/ul (0-0.6); ABS Lymphocytes 4.2 10^3/ul (1.0-4.8); ABS Monocytes 0.7 10^3/ul (0-0.8); ABS Neutrophils 6.7 10^3/ul (1.5-7.7); Eosinophil % 2.7 %; Hematocrit 42 % (35-47); Hemoglobin 14.1 g/dL (12.0-16.0); Lymphocyte % 34.4 %; Mean Corpuscular HGB Conc 34 g/dL (31-36); Mean Corpuscular Hemoglobin 28 pg (27-31); Mean Corpuscular Volume 85 fL (80-97); Mean Platelet Volume 8.1 fL (7.4-10.4); Platelet Count 485 10^3/uL (150-450); Red Blood Count 4.96 10^6 /uL (3.70-4.87); Red Cell Distribution Width 14 % (10-15); White Blood Count 12.1 10^3/uL (3.5-10.8)
[2019-04-09 15:19] LABS: Activated Partial Thrombo Time 35.8 seconds (26.0-38.0)
[2019-04-09 15:20] LABS: Urine Appearance Clear; Urine Bilirubin Negative (Negative); Urine Blood Negative (Negative); Urine Color Straw; Urine Glucose Negative (Negative); Urine Ketones Negative (Negative); Urine Nitrite Negative (Negative); Urine Protein Negative (Negative); Urine Specific Gravity 1.003 (1.010-1.030); Urine Urobilinogen Negative (Negative)
[2019-04-09 15:29] LABS: Albumin 4.1 g/dL (3.2-5.2); Albumin/Globulin Ratio 1.2 (1-3); BUN/Creatinine Ratio 9.4 (8-20); Calcium 9.5 mg/dL (8.6-10.3); EGFR African American 125.7 (>60); EGFR Non-African American 103.9 (>60); Globulin 3.5 g/dL (2-4); HDL Cholesterol 50.4 mg/dL; Potassium 3.9 mmol/L (3.5-5.0); Total Bilirubin 0.4 mg/dL (0.2-1.0); Total Protein 7.6 g/dL (6.4-8.9)
[2019-04-09 16:55] VITALS: BP 160/96
--- NOTE | 2019-04-09 17:35 | CONS ---
NEUROLOGY CONSULTATION NOTE: DATE OF CONSULT: 04/09/19 - EMERGENCY DEPT CONSULTING PROVIDER: Dr. Uvaldo Bolden. REASON FOR CONSULT: Code barnett was activated for a new-onset headache and transient right face and right arm numbness that lasted 1 minute. CHIEF COMPLAINT: Headaches. HISTORY OF PRESENT ILLNESS: Ms. Marlene Veras is a 39-year-old right-handed obese female who smokes 1-1/2 packs of cigarettes per day for more than 10 years , who presented to [facility] with a gradual onset of worsening headache and sudden onset of transient numbness involving the right side of the face and the right arm that lasted 1 minute. The patient stated that she has had a headache for the past 3 weeks. She has history of migraine headaches. The headache is in the left temporal region, radiates to the left frontal region , it is 7/10 in severity, it is not the worst headache of her life, it is described as a pressure sensation on the left side of the head, associated with photophobia and nausea, and does not fluctuate with Valsalva maneuver. She went to her primary care doctor's office today to check her blood pressure as it was slightly elevated. She was advised to come to the ER for further evaluation. The patient stated that earlier today at approximately 12:30 she developed a sudden onset numbness in the right side of the face and the right arm that resolved after 1 minute. Important to note that the patient recently had an ER visit on 04/07/19 for headaches and was found to have an elevated blood pressure. She was started on an antihypertensive agent, atenolol 25 mg p.o. daily. The patient had a blood pressure of 201/140 upon ER hospitalization. NIH Stroke Scale was 0. Last known well time questionable, but was minutes before 12:30. The patient is not a candidate for IV tPA as I do not suspect she had a stroke as a diagnosis. I examined the patient 2 hours after the code barnett was activated. The patient had resolution in her symptoms. PAST MEDICAL HISTORY: 1. Migraine. 2. Hypertension. PAST SURGICAL HISTORY: None. MEDICATIONS: 1. Atenolol 25 mg daily. 2. Ibuprofen 400 mg p.o. q.6 hours p.r.n. ALLERGIES: LOBSTER. FAMILY HISTORY: No family history of stroke or seizures. SOCIAL HISTORY: The patient has a full-time job. She has children and is getting ready to get in 2 weeks. She smokes 1-1/2 packs per day. She denied any excessive alcohol use. She smokes marijuana occasionally. REVIEW OF SYSTEMS: A 14-point review of systems was obtained and otherwise negative except for what was mentioned in the HPI. PHYSICAL EXAM: Vital Signs: Temperature of 97.8, heart rate of 74, respiratory rate of 23, oxygen saturation of 98%, blood pressure of 196/156. General: Well- nourished, well-developed female, in no acute distress. Head: Normocephalic, atraumatic without any obvious abnormality. Eyes: Conjunctivae/ corneas are clear. Neck is supple and symmetrical with no carotid bruits, no lymphadenopathy. Lungs are clear to auscultation bilaterally, nonlabored breathing. Cardiovascular: Regular rate and rhythm with normal S1, S2. Extremities: Normal range of motion with no cyanosis. Skin: No skin lesions or lacerations. Psych: Affect is broad and normal mood. Neurological Examination: Mental Status: Awake, alert, and oriented to person, place, time , and general circumstances. Speech and language including expression, naming, repetition, and comprehension were assessed and found to be normal. Cranial Nerves: Normal confrontation testing bilaterally. Pupils are mid range and reactive to light. Normal consensual response. Extraocular muscles are intact. No ptosis. Sensation is intact on the forehead, cheeks, and jaw region bilaterally. There is no facial droop. She is able to hear throughout the history process. Symmetrical palatal elevation. Normal strength against resistance. Tongue is symmetrical and midline with no atrophy or fasciculation. Motor Examination: No abnormal movements. No pronator drift. Normal bulk and tone in the upper and lower extremities. Reflexes 1+ throughout the upper and lower extremities with flexor plantar responses bilaterally. Sensation is intact to light touch and pinprick in the arms. Coordination: Normal [id number] and [id number] testing. Gait: Normal stance. No ataxia. DIAGNOSTIC STUDIES/LAB DATA: The patient had a CT head without contrast that showed no evidence of acute intracranial abnormality. Laboratory data: WBC of 12.1, hemoglobin of 14.1, hematocrit of 42, and platelet count of 485. Sodium of 138, potassium 3.9, chloride of 107, glucose of 104. LDL of 121, total cholesterol of 201. Urinalysis negative for pyuria. ASSESSMENT: Ms. Marlene Veras is a 39-year-old right-handed female with history of tobacco and marijuana use who has a history of migraine headache, who presented with gradual headache for the past 3 weeks with a transient episode of right face and right arm numbness lasting for less than 1 minute. NIH Stroke Scale was 0. She is not a candidate for IV tPA as we do not suspect the patient has had a stroke given her normal neurological examination. 1. Hypertensive emergency - I recommend reducing the systolic blood pressure by 25% in 24 hours. She needs to closely be monitored by her primary care physician. Defer further treatment to the primary team. 2. Headache - I suspect this is a combination of migraine headache as well as symptomatic headache related to her significantly elevated blood pressure. I favor the latter diagnosis given that her headache completely resolved after we reduced her blood pressure. 3. Tobacco abuse. 4. Marijuana use. 5. History of migraine headache. RECOMMENDATIONS: Recommend magnesium sulfate 2 g IV x1. She could also benefit from reducing her blood pressure with IV medications. Please adjust her home antihypertensive medications. Close followup with her PCP is recommended. I also would like to follow up with the patient in 3 to 4 weeks to assess her headaches. Tobacco cessation counseling was performed today and the patient has plans to quit, she and her future . Please continue magnesium oxide 400 mg p.o. daily for migraine prevention. I do not suspect this is subarachnoid hemorrhage or stroke given the normal neurological examination. No further testing is recommended unless the patient has recurrence in her neurological symptoms. TIME SPENT: Critical care, 40 minutes was spent assessing the patient urgently for possible stroke, obtaining history, education, counseling, and discussing the treatment plan option with the patient and Dr. Uvaldo Bolden. I will sign off. Please contact me for any questions or concerns. [id number]/[facility] #: [id number] JORGE
== END | disposition home or self-care (01) ==
LOC: ED 14:20
DX: R51 Headache (principal); I10 Essential (primary) hypertension; R20.0 Anesthesia of skin; Z91.013 Allergy to seafood; F17.210 Nicotine dependence, cigarettes, uncomplicated
CPT/HCPCS: 36415; 70450; 71045; 80053; 80061; 81003; 83605; 84484; 85025; 85610; 85730; 86850; 86900; 86901; 93005; 96361; 96365; 96375; 99284; J1100; J1200; J2765; J3475

== ENCOUNTER 2019-04-09 23:52 | Emergency (ER) | payer OTHER ==
--- OUTSIDE RECORDS SUMMARY | 2019-04-10 00:04 | XMS REPORT | Continuity of Care Document ---
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 Years) Paternal Grandmother due to ? 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 ETOH Use Denies alcohol use Recreational Drug Use Denies Drug Use Tobacco Use Start: Unknown Patient is a current smoker, smokes every day Enjoy Exercising Enjoys exercising active with children, no extra excersise Currently Active Patient is currently sexually active Contraceptive Methods Current methods include tubal ligation STD's Chlamydia In The Past Allergies, Adverse Reactions, Alerts Active Allergies Reaction Severity Comments Date NKDA 10/01/2007 Lobster 02/20/2011 Alcohol 02/20/2011 Medications Active Medications SIG Qnty Indications Ordering Provider Date Atenolol 1 by mouth every 30tabs Farrukh Buckner, 04/09/2019 25mg Tablets day Blood Pressure Cuff auto-inflating 1units Farrukh Buckner, 04/09/2019 [facility] Vitamin D3 take one capsule 16caps Gudelia Cruz, 12/10/2018 [id number] by mouth twice a STOCK REPAIRER-C Capsules week for 8 weeks Fluticasone 1 to 2 sprays in 16gm G47.8 Gudelia Cruz, 09/03/2017 Propionate both nares once STOCK REPAIRER-C 50mcg/Act a day if needed Suspension Ventolin HFA inhale two puffs 18units Gudelia Cruz, 03/22/2016 by mouth every 4 STOCK REPAIRER-C 108(90Base) mcg/Act hours as needed Aerosol for wheeze History Medications Mirtazapine take one tablet by 30tabs G47.00 Gudelia Rangel 11/22/2017 - 15mg mouth at bedtime Anthony STOCK REPAIRER-C 12/10/2018 Tablets sleep, replaces trazodone Amoxicillin/Clavulana 1 tab by mouth 20tabs G47.8 [facility] 09/03/2017 - te Potassium twice a day for 10 [place]le, CERTIFIED OPTICIAN 11/22/2017 875-125mg days Tablets Meloxicam 1 by mouth daily 30tabs M77.11 Gudelia Rangel 09/18/2016 - 15mg Tablets for pain, take ADELAIDA CruzP-C 11/22/2017 with food Trazodone HCL Take One Tablet By 30tabs G47.00 Stanislavwnti R. 02/02/2016 - 50mg Mouth AT Bedtime [facility] 11/22/2017 Tablets If Needed For Sleep Effexor XR 1 by mouth every 30caps F32.9 Judnti R. 02/02/2016 - 75mg Caps ER day for depression [facility] 11/22/2017 24HR Valium take 1 tablet 20tabs F41.9 Judnt R. 02/02/2016 - 5mg Tablets 30-60 minutes [facility], [facility] 11/22/2017 prior to dental appointment may repeat 1 in one hour (mdd=2) Ergocalciferol 1 by mouth weekly 14caps [facility] 08/30/2015 - [facility], [facility] 11/22/2017 [id number] Capsules Azithromycin take 2 tablets 6tabs 466.0 Estelle Flores, 03/02/2015 - 250mg today then 1 [facility] 08/25/2015 Tablets tablet daily for the next 4 days Ventolin HFA 2 puffs every 1units 466.0 Estelle Flores, 03/02/2015 - every 4-6 hours as [facility] 02/02/2016 108(90Base) mcg/Act needed Aerosol wheezing/tightness Benzonatate 1 by mouth three 45caps 466.0 Estelle Flores, 03/02/2015 - 200mg times a day [facility] 08/25/2015 Capsules Effexor XR 1 by mouth every 30caps [facility] RGeovanni 02/17/2015 - 75mg Caps ER day for depression [facility], [facility] 02/02/2016 24HR Ortho Tri-Cyclen (28) 1 po qd 28tabs 620.2 Stanislavwnttavon RGeovanni 02/17/2015 - [facility], [facility] 08/25/2015 0.18/0.215/0.25 mg-35 mcg Tablets Chantix 1 po bid 60tabs 305.1 Estelle Flores, 11/11/2013 - 1mg Tablets [facility] 08/25/2015 Chantix take 1 tablet po 11tabs 305.1 Estelle Flores, 11/11/2013 - 0.5mg Tablets daily days 1-3, [facility] 08/25/2015 take 1 tablet po bid days 4-7, then use maintenance pack Ortho Tri-Cyclen 1 po qd 28tabs 620.2 Estelle Flores, 11/11/2013 - [facility] 02/17/2015 0.18/0.215/0.25 mg-35 mcg Tablets Amitriptyline HCL 1 po qhs for pain 90tabs Stanislavwfelecia R. 01/12/2013 - 25mg and sleep [facility] 08/[facility]/2015 Tablets Robaxin-750 take one tablet by 60tabs 724.5 Stanislavwnti R. 01/12/2013 - 750mg mouth three times [facility] 08/25/2015 Tablets a day as needed for muscle spasm/ tightness; replaces tizanidine Cymbalta 1 po qam for pain 30caps Gudelia RGeovanni 01/12/2013 - 30mg Caps and depression ADELAIDA CruzPJeff 02/17/2015 Part Penicillin V 1 bid x 10 20tabs 462 Eric Carpio, 01/10/2013 - Potassium M.D. 02/09/2013 500mg Tablets Meloxicam 1 po daily for 30tabs M54.89 Eric Carpio, 04/15/2012 - 15mg Tablets pain, take with M.D. 02/02/2016 food Flexeril 1/2 to 1 pill q8hr 30tabs 724.5 Gudelia RGeovanni 04/15/2012 - 10mg Tablets prn muscle spasm ADELAIDA CruzPJeff 01/12/2013 Cymbalta 1 po qd 30caps 293.83 Gudelia Rangel 07/10/2011 - 60mg Caps GAB Phillips 04/15/2012 Part Amitriptyline HCL 1 po qhs for sleep 30tabs 780.52 Stanislavwnti R. 07/10/2011 - 25mg and migraines [facility] 04/15/2012 Tablets Biaxin 1 po bid for 10 20tabs 462 Gudelia RGeovanni 03/13/2011 - 500mg Tablets days for GAB Cruz 06/26/2011 bronchitis and pharyngitis Ultravate apply bid to 50gm 696.1 Stanislavwfelecia RGeovanni 02/20/2011 - 0.05% affected sites GAB Cruz 08/25/2015 Ointment Cymbalta one po daily for 30caps 293.83 Gudelia Rangel 02/20/2011 - 30mg Caps DR feliz Cruz [facility] 07/10/2011 Part Trazodone HCL take 1/2 or 1 30tabs 293.83 Gudelia Rangel 02/20/2011 - 50mg tablet at bedtime ADELAIDA CruzPJeff 04/15/2012 Tablets if needed Referral To [place] Breanna Ovalle 08/15/2008 - [facility], 02/20/2011 Treatment [facility] Zithromax Z-Mikey 2 po on day 1, 1 6tabs 466.0 Breanna Agarwal 07/27/2008 - 250mg po on days 2-5 Angely, 08/11/2008 Tablets [facility] Tylenol/Codeine #3 1-2 tabs po every 20tabs 466.0 Breanna Agarwal 07/27/2008 - #3 6 hours prn [facility], 02/20/2011 Tablets [facility] Ortho Tri-Cyclen 1 PO qd 1pack V25.09 Breanna AGeovanni 10/30/2007 - [facility], 02/20/2011 Tablets [facility] Chantix Use as Directed QS 305.1 Breanna AGeovanni 10/30/2007 - Starter Pack [facility], 02/20/2011 Misc [facility] Ultravate apply bid to 50gm 696.1 Breanna AGeovanni 10/30/2007 - 0.05% affected sites [facility], 02/20/2011 Ointment [facility] Lidex Apply To Affected 30gm 696.1 Breanna AGeovanni 10/01/2007 - 0.05% Ointment Areas bid [facility], 10/30/2007 [facility] Medications Administered in Office Medication SIG Qnty Indications Ordering Provider Date Injection Ketorolac RAVIN Garcia 07/10/2011 Tromethamine Per 15 MG (Toradol) Injection Immunizations CPT Code Status Date Vaccine Lot # [id number] Given 08/08/2016 Tdap (Adacel) [id number] Given 08/08/2016 Influenza Virus Vaccine, Quadrivalent, 3 Yr > [id number] Quad, Preserv Free Vital Signs Date Vital Result Comment 04/09/2019 10:18am Weight 247.00 lb Weight 112.039 kg BP Systolic 150 mmHg BP Diastolic 100 mmHg Heart Rate 83 /min Body Temperature 97.7 F Respiratory Rate 20 /min O2 % BldC Oximetry 98 % 12/10/2018 11:08am Weight 240.00 lb Weight 108.864 kg BP Systolic 112 mmHg BP Diastolic 70 mmHg Heart Rate 87 /min Body Temperature 97.9 F Respiratory Rate 16 /min O2 % BldC Oximetry 98 % 11/22/2017 3:45pm Weight 259.00 lb Weight 117.482 kg BP Systolic 150 mmHg BP Diastolic 82 mmHg Heart Rate 70 /min Body Temperature 97.7 F Respiratory Rate 16 /min O2 % BldC Oximetry 97 % 09/03/2017 11:57am Weight 257.00 lb Weight 116.575 kg BP Systolic 150 mmHg BP Diastolic 90 mmHg Heart Rate 80 /min Body Temperature 97.6 F O2 % BldC Oximetry 98 % 09/18/2016 2:43pm Weight 243.00 lb Weight 110.225 kg BP Systolic 120 mmHg BP Diastolic 98 mmHg Heart Rate 84 /min Body Temperature 97.3 F Respiratory Rate 12 /min 08/08/2016 10:23am Weight 241.00 lb Weight 109.318 kg BP Systolic 120 mmHg BP Diastolic 78 mmHg Heart Rate 76 /min 03/06/2016 11:07am Weight 239.00 lb Weight 108.410 kg BP Systolic 130 mmHg BP Diastolic 72 mmHg Heart Rate 85 /min Body Temperature 98.5 F 02/02/2016 9:41am Weight 243.00 lb Weight 110.225 kg BP Systolic 132 mmHg BP Diastolic 90 mmHg Heart Rate 88 /min Body Temperature 98.0 F 08/25/2015 1:42pm Weight 236.00 lb Weight 107.050 kg BP Systolic 124 mmHg BP Diastolic 78 mmHg Heart Rate 88 /min Height 66.5 inches 5'6.50" BMI (Body Mass Index) 37.5 kg/m2 03/02/2015 11:03am Weight 241.00 lb Weight 109.318 kg BP Systolic 132 mmHg BP Diastolic 78 mmHg Heart Rate 76 /min Body Temperature 98.3 F O2 % BldC Oximetry 98 % 11/11/2013 11:26am Weight 240.00 lb Weight 108.864 kg BP Systolic 114 mmHg BP Diastolic 88 mmHg Heart Rate 88 /min Body Temperature 96.8 F O2 % BldC Oximetry 98 % 01/12/2013 12:00pm Weight 264.00 lb Weight 119.750 kg BP Systolic 120 mmHg BP Diastolic 92 mmHg Heart Rate 82 /min 01/10/2013 11:01am Weight 267.00 lb Weight 121.111 kg BP Systolic 110 mmHg BP Diastolic 76 mmHg Heart Rate 84 /min Body Temperature 97.9 F Height 66.5 inches 5'6.50" BMI (Body Mass Index) 42.4 kg/m2 04/15/2012 4:17pm Weight 246.00 lb Weight 111.586 kg BP Systolic 110 mmHg BP Diastolic 64 mmHg Heart Rate 84 /min 07/10/2011 3:45pm Weight 246.00 lb Weight 111.586 kg BP Systolic 130 mmHg BP Diastolic 90 mmHg Heart Rate 96 /min Body Temperature 99.0 F 03/13/2011 2:32pm Weight 258.00 lb Weight 117.029 kg BP Systolic 110 mmHg BP Diastolic 88 mmHg Heart Rate 84 /min 02/20/2011 1:48pm Weight 262.00 lb Weight 118.843 kg BP Systolic 116 mmHg BP Diastolic 74 mmHg Heart Rate 76 /min Height 66 inches 5'6" BMI (Body Mass Index) 42.3 kg/m2 Last Menstrual Period [id number] 08/13/2008 3:50pm Weight 256.00 lb Weight 116.122 kg BP Systolic 136 mmHg BP Diastolic 100 mmHg Heart Rate 92 /min Height 66.5 inches 5'6.50" BMI (Body Mass Index) 40.7 kg/m2 07/27/2008 12:27pm Weight 256.00 lb Weight 116.122 kg BP Systolic 130 mmHg BP Diastolic 80 mmHg Heart Rate 97 /min Body Temperature 98.0 F oral Height 66.5 inches 5'6.50" BMI (Body Mass Index) 40.7 kg/m2 O2 % BldC Oximetry 95 % room air 01/26/2008 8:36am Height 66.5 inches 5'6.50" Last Menstrual Period 5141301 O2 % BldC Oximetry 120 % Waist Circumference 70 10/30/2007 12:56pm Weight 236.00 lb Weight 107.050 kg BP Systolic 104 mmHg BP Diastolic 60 mmHg Heart Rate 68 /min Height 66.5 inches 5'6.50" BMI (Body Mass Index) 37.5 kg/m2 Last Menstrual Period [id number] 10/01/2007 2:18pm Weight 234.00 lb Weight 106.142 kg BP Systolic 104 mmHg BP Diastolic 76 mmHg Heart Rate 84 /min Body Temperature 96.9 F O2 % BldC Oximetry 96 % Results Test Date Facility Test Result H/L Range Note Laboratory test [facility] TSH (Thyroid 2.04 N 0.34-5.60 1, 2 finding 9 [phone] Stimulating mcIU/mL Horm) C Reactive Protein 15.54 mg/L High <8.01 3 CBC Auto 04/09/2019 [facility] White Blood 12.1 10^3/ uL High 3.5-10.8 Diff [phone] Count Red Blood Count 4.96 10^6/uL High 3.70-4.87 Hemoglobin 14.1 g/dL N 12.0-16.0 Hematocrit 42 % N 35-47 Mean Corpuscular Volume 85 fL N 80-97 Mean Corpuscular Hemoglobin 28 pg N 27-31 Mean Corpuscular HGB Conc 34 g/dL N 31-36 Red Cell Distribution Width 14 % N 10-15 Platelet Count 485 10^3/uL High 150-450 Mean Platelet Volume 8.1 fL N 7.4-10.4 Abs Neutrophils 6.7 10^3/uL N 1.5-7.7 Abs Lymphocytes 4.2 10^3/uL N 1.0-4.8 Abs Monocytes 0.7 10^3/uL N 0-0.8 Abs Eosinophils 0.3 10^3/uL N 0-0.6 Abs Basophils 0.2 10^3/uL N 0-0.2 Abs Nucleated RBC 0.0 10^3/uL Granulocyte % 55.2 % Lymphocyte % 34.4 % Monocyte % 6.0 % Eosinophil % 2.7 % Basophil % 1.7 % Nucleated Red Blood Cells % 0.0 Inr/Protime 04/09/2019 [facility] Inr 1.00 N 0.82- 1.09 4 [phone] Laboratory test 04/09/2019 [facility] Partial 35.8 seconds N 26.0-38.0 finding [phone] Thrombo Time PTT Urinalysis 04/09/2019 [facility] Urine Color Straw Profile [phone] Urine Appearance Clear Urine Specific [place] 1.003 Low 1.010-1.030 Urine pH 8.0 N 5-9 Urine Urobilinogen Negative Negative Urine Ketones Negative Negative Urine Protein Negative Negative Urine Leukocytes Negative Negative Urine Blood Negative Negative Urine Nitrite Negative Negative Urine Bilirubin Negative Negative Urine Glucose Negative Negative Laboratory test 04/09/2019 [facility] Point of 105 mg /dL High 70-100 5 finding [phone] Care Glucose CBC Auto Diff 04/07/2019 [facility] White Blood 11.8 High 3.5-10.8 [phone] Count 10^3/uL Red Blood Count 4.95 10^6/uL High 3.70-4.87 Hemoglobin 14.1 g/dL N 12.0-16.0 Hematocrit 42 % N 35-47 Mean Corpuscular Volume 84 fL N 80-97 Mean Corpuscular Hemoglobin 29 pg N 27-31 Mean Corpuscular HGB Conc 34 g/dL N 31-36 Red Cell Distribution Width 14 % N 10-15 Platelet Count 443 10^3/uL N 150-450 Mean Platelet Volume 8.0 fL N 7.4-10.4 Abs Neutrophils 7.5 10^3/uL N 1.5-7.7 Abs Lymphocytes 3.0 10^3/uL N 1.0-4.8 Abs Monocytes 0.7 10^3/uL N 0-0.8 Abs Eosinophils 0.4 10^3/uL N 0-0.6 Abs Basophils 0.1 10^3/uL N 0-0.2 Abs Nucleated RBC 0.0 10^3/uL Granulocyte % 64.0 % Lymphocyte % 25.8 % Monocyte % 6.2 % Eosinophil % 3.2 % Basophil % 0.8 % Nucleated Red Blood Cells % 0.0 Comp Metabolic Panel 04/07/2019 [facility] Sodium 135 mmol/L N 135-145 [phone] Potassium 4.2 mmol/L N 3.5-5.0 Chloride 105 mmol/L N 101-111 Co2 Carbon Dioxide 25 mmol/L N 22-32 Anion Gap 5 mmol/L N 2-11 Glucose 103 mg/dL High 70-100 Blood Urea Nitrogen 10 mg/dL N 6-24 Creatinine 0.70 mg/dL N 0.51-0.95 BUN/Creatinine Ratio 14.3 N 8-20 Calcium 9.4 mg/dL N 8.6-10.3 Total Protein 7.0 g/dL N 6.4-8.9 Albumin 4.0 g/dL N 3.2-5.2 Globulin 3.0 g/dL N 2-4 Albumin/Globulin Ratio 1.3 N 1-3 Total Bilirubin 0.40 mg/dL N 0.2-1.0 Alkaline Phosphatase 70 U/L N 34-104 Alt 15 U/L N 7-52 Ast 15 U/L N 13-39 Egfr Non- 93.6 >60 Egfr 113.3 >60 6 Laboratory test 04/07/2019 [facility] Magnesium 1.8 mg/dL Low 1.9-2.7 finding [phone] CRP High Sensitivity 13.02 mg/L High <2.00 HCG < 0.60 mIU/mL 7 Urinalysis Profile 04/07/2019 [facility] Urine Color Straw [phone] Urine Appearance Clear Urine Specific [place] 1.003 Low 1.010-1.030 Urine pH 6.0 N 5-9 Urine Urobilinogen Negative Negative Urine Ketones Negative Negative Urine Protein Negative Negative Urine Leukocytes Negative Negative Urine Blood 2+ Abnormal Negative Urine Nitrite Negative Negative Urine Bilirubin Negative Negative Urine Glucose Negative Negative Urine White Blood Cell Absent Absent Urine Red Blood Cell Trace(0-2/hpf) Absent Urine Bacteria Absent Absent Urine Squamous Epithelial Cell Present Abnormal Absent CBC Auto Diff 11/22/2017 [facility] White Blood 9.8 10^3/uL N 3.5-10.8 8 [phone] Count Red Blood Count 4.55 10^6/uL N 4.0-5.4 Hemoglobin 13.5 g/dL N 12.0-16.0 Hematocrit 40 % N 35-47 Mean Corpuscular Volume 88 fL N 80-97 Mean Corpuscular Hemoglobin 30 pg N 27-31 Mean Corpuscular HGB Conc 34 g/dL N 31-36 Red Cell Distribution Width 14 % N 10.5-15 Platelet Count 413 10^3/uL N 150-450 Mean Platelet Volume 9 um3 N 7.4-10.4 Abs Neutrophils 5.8 10^3/uL N 1.5-7.7 Abs Lymphocytes 2.8 10^3/uL N 1.0-4.8 Abs Monocytes 0.9 10^3/uL High 0-0.8 Abs Eosinophils 0.3 10^3/uL N 0-0.6 Abs Basophils 0.1 10^3/uL N 0-0.2 Abs Nucleated RBC 0 10^3/uL Granulocyte % 58.9 % N 38-83 Lymphocyte % 28.2 % N 25-47 Monocyte % 8.9 % N 1-9 Eosinophil % 2.8 % N 0-6 Basophil % 1.2 % N 0-2 Nucleated Red Blood Cells % 0 Comp Metabolic Panel 11/22/2017 [facility] Sodium 137 mmol/L N 133-145 [phone] Potassium 3.8 mmol/L N 3.5-5.0 Chloride 106 mmol/L N 101-111 Co2 Carbon Dioxide 26 mmol/L N 22-32 Anion Gap 5 mmol/L N 2-11 Glucose 86 mg/dL N 70-100 Blood Urea Nitrogen 5 mg/dL Low 6-24 Creatinine 0.58 mg/dL N 0.51-0.95 BUN/Creatinine Ratio 8.6 N 8-20 Calcium 9.2 mg/dL N 8.6-10.3 Total Protein 6.6 g/dL N 6.4-8.9 Albumin 3.8 g/dL N 3.2-5.2 Globulin 2.8 g/dL N 2-4 Albumin/Globulin Ratio 1.4 N 1-3 Total Bilirubin 0.40 mg/dL N 0.2-1.0 Alkaline Phosphatase 60 U/L N 34-104 Alt 12 U/L N 7-52 Ast 12 U/L Low 13-39 Egfr Non- 117.6 >60 Egfr 151.3 >60 9 Laboratory test 11/22/2017 [facility] TSH (Thyroid 1.12 N 0.34-5.60 10 finding [phone] Stimulating mcIU/mL Horm) Vitamin B12 290 pg/mL N 180-914 11 Vitamin D Total 25(Oh) 21.1 ng/mL N 20-50 12 Laboratory test 10/17/2017 [facility] Rapid Strep Negative Negative 13 finding [phone] Molecular Rapid Influenza 10/17/2017 [facility] Influenza A NEGATIVE Negative 14 A & B Molecular [phone] Molecular Influenza B Molecular NEGATIVE Negative Laboratory test 09/11/2017 [facility] Troponin-I 0.01 <0.04 finding [phone] (TnI) ng/mL CBC Auto Diff 09/10/2017 [facility] White Blood 13.3 High 3.5-10.8 [phone] Count 10^3/uL Red Blood Count 4.67 10^6/uL N 4.0-5.4 Hemoglobin 13.6 g/dL N 12.0-16.0 Hematocrit 41 % N 35-47 Mean Corpuscular Volume 87 fL N 80-97 Mean Corpuscular Hemoglobin 29 pg N 27-31 Mean Corpuscular HGB Conc 33 g/dL N 31-36 Red Cell Distribution Width 13 % N 10.5-15 Platelet Count 356 10^3/uL N 150-450 Mean Platelet Volume 8 um3 N 7.4-10.4 Abs Neutrophils 8.4 10^3/uL High 1.5-7.7 Abs Lymphocytes 3.4 10^3/uL N 1.0-4.8 Abs Monocytes 1.0 10^3/uL High 0-0.8 Abs Eosinophils 0.4 10^3/uL N 0-0.6 Abs Basophils 0.1 10^3/uL N 0-0.2 Abs Nucleated RBC 0.01 10^3/uL Granulocyte % 63.0 % N 38-83 Lymphocyte % 25.6 % N 25-47 Monocyte % 7.8 % N 1-9 Eosinophil % 2.8 % N 0-6 Basophil % 0.8 % N 0-2 Nucleated Red Blood Cells % 0.1 Laboratory test 09/10/2017 [facility] Lactic Acid 1.2 mmol/L N 0.5-2.0 15 finding [phone] Troponin-I (TnI) 0.00 ng/mL <0.04 Comp Metabolic Panel 09/10/2017 [facility] Sodium 137 mmol/L N 133-145 [phone] Potassium 3.5 mmol/L N 3.5-5.0 Chloride 108 mmol/L N 101-111 Co2 Carbon Dioxide 26 mmol/L N 22-32 Anion Gap 3 mmol/L N 2-11 Glucose 98 mg/dL N 70-100 Blood Urea Nitrogen 7 mg/dL N 6-24 Creatinine 0.55 mg/dL N 0.51-0.95 BUN/Creatinine Ratio 12.7 N 8-20 Calcium 9.1 mg/dL N 8.6-10.3 Total Protein 6.9 g/dL N 6.4-8.9 Albumin 3.8 g/dL N 3.2-5.2 Globulin 3.1 g/dL N 2-4 Albumin/Globulin Ratio 1.2 N 1-3 Total Bilirubin 0.30 mg/dL N 0.2-1.0 Alkaline Phosphatase 58 U/L N 34-104 Alt 15 U/L N 7-52 Ast 13 U/L N 13-39 Egfr Non- 125.1 >60 Egfr 160.8 >60 16 Laboratory test 03/06/2016 [facility] Culture Throat SEE RESULT 17 finding [phone] BELOW Laboratory test 03/06/2016 In House Lab Strep Screen neg Neg finding [phone] GC/Chlamydia 08/25/2015 [facility] Chlamydia Negative N Negative Amplified Rna [phone] trachomatis Rna Neisseria gonorrhoeae (GC) Rna Negative N Negative 18 Lipid Profile 08/25/2015 [facility] Triglycerides 89 mg/dL N 19 (Trig/Chol/HDL) [phone] Cholesterol 198 mg/dL N 20 HDL Cholesterol 47.8 mg/dL N 21 LDL Cholesterol 132 mg/dL N 22 Laboratory 08/25/2015 [facility] Hemoglobin 5.1 % N Less than 6.0 23 test finding [phone] A1c (Glyco HGB) HIV 1/2 AB 08/25/2015 [facility] HIV 1 2 Nonreactive N Nonreactive 24 Evaluation [phone] Antibody Laboratory 08/25/2015 [facility] TSH (Thyroid 1.70 ? IU/mL N 0.34-5.60 test finding [phone] Stim Horm) Hepatitis C Antibody Nonreactive N Nonreactive Vitamin D Total 25(Oh) 18.4 ng/mL Low 30-50 Urine DIP 08/25/2015 In House Lab Specific [place] 1.015 1.01-1.02 [phone] Urine pH 5 5-6 Leukocytes trace Neg Urine Nitrites neg Neg Total Protein, Urine neg Neg Urine Glucose norm Norm Urine Ketones neg Neg Urobilinogen norm Norm Urine Bilirubin neg Neg Urine Blood trace Neg Urinalysis 11/07/2013 [facility] Urine Color Yellow [phone] Urine Appearance Clear Urine Specific [place] 1.023 1.010-1.030 Urine Esterase 1+ Abnormal Negative Urine Nitrate Negative Negative Urine Urobilinogen Negative E.U./dL Negative Urine Protein 1+ mg/dL Abnormal Negative Urine pH 8.5 5-9 Urine Blood Negative Negative Urine Ketones Negative mg/dL Negative Urine Bilirubin Negative Negative Urine Glucose Negative mg/dL Negative Urine Microscopic 11/07/2013 [facility] Urine WBC 1+ (<10 None Seen [phone] /hpf) Urine Mucus Present /lpf Absent Urine Epithelial Cells 2+ Squamous /hpf None Seen Bacteria Urine 1+ None Seen Crystals Urine Amorphous /lpf None Seen Urine Culture And 11/07/2013 [facility] Urine (SEE NOTE) 25 Sensitivities [phone] Culture CBC Auto Diff 11/07/2013 [facility] White Blood 14.2 High 4.8-2 [phone] Count 10^3/uL 0.8 Red Blood Count 4.73 10^6/uL 4.0-5.4 Hemoglobin 13.1 g/dL 12.0-16.0 Hematocrit 40 % 35-47 Mean Corpuscular Volume 84 fL 80-97 Mean Corpuscular Hemoglobin 28 pg 27-31 Mean Corpuscular HGB Conc 33 g/dL 31-36 Red Cell Distribution Width 15 % 10.5-15 Platelet Count 468 10^3/uL High 150-450 Mean Platelet Volume 8 um3 7.4-10.4 Abs Neutrophils 9.7 10^3/uL High 1.5-7.7 Abs Lymphocytes 2.8 10^3/uL 1.0-4.8 Abs Monocytes 1.3 10^3/uL High 0-0.8 Abs Eosinophils 0.3 10^3/uL 0-0.6 Abs Basophils 0.1 10^3/uL 0-0.2 Abs Nucleated RBC 0.01 10^3/uL Granulocyte % 68.0 % 38-83 Lymphocyte % 19.9 % Low 25-47 Monocyte % 9.0 % 1-9 Eosinophil % 2.4 % 0-6 Basophil % 0.7 % 0-2 Nucleated Red Blood Cells % 0 Comp Metabolic Panel 11/07/2013 [facility] Sodium 138 mmol/L 133-145 [phone] Potassium 3.7 mmol/L 3.5-5.0 Chloride 103 mmol/L 101-111 Co2 Carbon Dioxide 27.0 mmol/L 22-32 Anion Gap 8.0 mmol/L 2-11 Glucose 95 mg/dL 70-100 Blood Urea Nitrogen 8 mg/dL 6-24 Creatinine 0.50 mg/dL 0.50-1.40 BUN/Creatinine Ratio 16.0 8-20 Calcium 8.7 mg/dL 8.1-9.9 Total Protein 6.9 g/dL 6.2-8.1 Albumin 3.7 g/dL 3.6-5.4 Globulin 3.2 g/dL 2-4 Albumin/Globulin Ratio 1.2 1-3 Total Bilirubin 0.4 mg/dL 0.4-1.5 Alkaline Phosphatase 73 U/L 30-110 Alt 17 U/L 14-54 Ast 20 U/L 12-42 Egfr Non- 143.0 >60 Egfr 183.9 >60 26 Laboratory test 11/07/2013 [facility] Amylase 41 U/L 20-120 finding [phone] Lipase 20 U/L Low 22-51 C Reactive Protein 0.7 mg/dL High Less than 0.5 Laboratory test 10/28/2013 [facility] Lactic Acid 1.5 mmol/L 0.5-1.6 finding [phone] Blood Culture (SEE NOTE) 27 Urinalysis 10/28/2013 [facility] Urine Color Yellow [phone] Urine Appearance Clear Urine Specific [place] 1.031 High 1.010-1.030 Urine Esterase Negative Negative Urine Nitrate Negative Negative Urine Urobilinogen Negative E.U./dL Negative Urine Protein Negative mg/dL Negative Urine pH 6.5 5-9 Urine Blood Trace Abnormal Negative Urine Ketones Negative mg/dL Negative Urine Bilirubin Negative Negative Urine Glucose Negative mg/dL Negative Urine Microscopic 10/28/2013 [facility] Urine WBC None Seen None Seen [phone] Urine RBC None Seen None Seen Urine Epithelial Cells 1+ Squamous /hpf None Seen Bacteria Urine None Seen None Seen Blood Culture 10/28/2013 [facility] Blood Culture ( SEE NOTE) 28 [phone] CBC Auto Diff 10/28/2013 [facility] White Blood 22.2 High 4.8-10 [phone] Count 10^3/uL .8 Red Blood Count 5.34 10^6/uL 4.0-5.4 Hemoglobin 14.3 g/dL 12.0-16.0 Hematocrit 45 % 35-47 Mean Corpuscular Volume 84 fL 80-97 Mean Corpuscular Hemoglobin 27 pg 27-31 Mean Corpuscular HGB Conc 32 g/dL 31-36 Red Cell Distribution Width 15 % 10.5-15 Platelet Count 479 10^3/uL High 150-450 Mean Platelet Volume 9 um3 7.4-10.4 Abs Neutrophils 17.4 10^3/uL High 1.5-7.7 Abs Lymphocytes 2.9 10^3/uL 1.0-4.8 Abs Monocytes 1.9 10^3/uL High 0-0.8 Abs Eosinophils 0 10^3/uL 0-0.6 Abs Basophils 0.1 10^3/uL 0-0.2 Abs Nucleated RBC 0.01 10^3/uL Manual Differential 10/28/2013 [facility] Neutrophil % 79 % 38-83 [phone] Lymphocytes % 12 % Low 25-47 Monocytes % 7 % 0-13 Reactive Lymph % 2 % 0-6 RBC Morphology Normal Normal Comp Metabolic Panel 10/28/2013 [facility] Sodium 135 mmol/L 133-145 [phone] Potassium 3.4 mmol/L Low 3.5-5.0 Chloride 102 mmol/L 101-111 Co2 Carbon Dioxide 24.0 mmol/L 22-32 Anion Gap 9.0 mmol/L 2-11 Glucose 112 mg/dL High 70-100 Blood Urea Nitrogen 5 mg/dL Low 6-24 Creatinine 0.60 mg/dL 0.50-1.40 BUN/Creatinine Ratio 8.3 8-20 Calcium 9.6 mg/dL 8.1-9.9 Total Protein 8.5 g/dL High 6.2-8.1 Albumin 4.4 g/dL 3.6-5.4 Globulin 4.1 g/dL High 2-4 Albumin/Globulin Ratio 1.1 1-3 Total Bilirubin 0.6 mg/dL 0.4-1.5 Alkaline Phosphatase 65 U/L 30-110 Alt 19 U/L 14-54 Ast 26 U/L 12-42 Egfr Non- 115.9 >60 Egfr 149.0 >60 29 Laboratory test 10/28/2013 [facility] Amylase 35 U/L 20-120 finding [phone] Lipase 16 U/L Low 22-51 Troponin I 0 ng/mL 0-0.06 30 Alcohol < 10 mg/dL Less Than 10 31 Inr/Protime 10/28/2013 [facility] Inr 1.03 0.85- 1.06 [phone] Urinalysis 04/04/2013 [facility] Urine Color Yellow [phone] Urine Appearance Clear Urine Specific [place] 1.016 1.010-1.030 Urine Esterase Negative Negative Urine Nitrate Positive Abnormal Negative Urine Urobilinogen Negative E.U./dL Negative Urine Protein Negative mg/dL Negative Urine pH 6.5 5-9 Urine Blood Negative Negative Urine Ketones Negative mg/dL Negative Urine Bilirubin Negative Negative Urine Glucose Negative mg/dL Negative Urine Culture And 04/04/2013 [facility] Urine (SEE NOTE) 32 Sensitivities [phone] Culture Urine Microscopic 04/04/2013 [facility] Urine WBC 1+ (<10 None Seen [phone] /hpf) Urine RBC None Seen None Seen Urine Epithelial Cells 2+ Squamous /hpf None Seen Bacteria Urine 1+ None Seen Laboratory test 01/10/2013 In House Lab Strep Screen neg Neg finding ([phone])- - Urine Culture And 11/26/2012 [facility] Urine Culture (SEE 33 Sensitivities [phone] NOTE) Urine Microscopic 11/26/2012 [facility] Urine WBC 1+ (<10 None Seen [phone] /hpf) Urine RBC 3+ (>10 /hpf) None Seen Urine Epithelial Cells 1+ Squamous /hpf None Seen Bacteria Urine 1+ None Seen Urinalysis 11/26/2012 [facility] Urine Color Yellow [phone] Urine Appearance Clear Urine Specific [place] 1.019 1.010-1.030 Urine Esterase 1+ Abnormal Negative Urine Nitrate Negative Negative Urine Urobilinogen Negative E.U./dL Negative Urine Protein Negative mg/dL Negative Urine pH 7.0 5-9 Urine Blood 3+ Abnormal Negative Urine Ketones Negative mg/dL Negative Urine Bilirubin Negative Negative Urine Glucose Negative mg/dL Negative CBC Auto 10/07/2012 [facility] White Blood 13.0 10^3/ uL High 4.8-10.8 Diff [phone] Count Red Blood Count 4.45 10^6/uL 4.0-5.4 Hemoglobin 12.0 g/dL 12.0-16.0 Hematocrit 38 % 35-47 Mean Corpuscular Volume 85 fL 80-97 Mean Corpuscular Hemoglobin 27 pg 27-31 Mean Corpuscular HGB Conc 32 g/dL 31-36 Red Cell Distribution Width 15 % 10.5-15 Platelet Count 406 10^3/uL 150-450 Mean Platelet Volume 9 um3 7.4-10.4 Abs Neutrophils 7.2 10^3/uL 1.5-7.7 Abs Lymphocytes 4.4 10^3/uL 1.0-4.8 Abs Monocytes 1.0 10^3/uL High 0-0.8 Abs Eosinophils 0.3 10^3/uL 0-0.6 Abs Basophils 0.1 10^3/uL 0-0.2 Abs Nucleated RBC 0.01 10^3/uL Granulocyte % 55.4 % 38-83 Lymphocyte % 34.2 % 25-47 Monocyte % 7.4 % 1-9 Eosinophil % 2.3 % 0-6 Basophil % 0.7 % 0-2 Nucleated Red Blood Cells % 0 Laboratory test 10/07/2012 [facility] D Dimer < 200 Less 34 finding [phone] Quantitative ng/mL Than 230 Comp Metabolic 10/07/2012 [facility] Sodium 138 mmol/ L 133-145 Panel [phone] Potassium 3.9 mmol/L 3.5-5.0 Chloride 107 mmol/L 101-111 Co2 Carbon Dioxide 23.0 mmol/L 22-32 Anion Gap 8.0 mmol/L 2-11 Glucose 95 mg/dL 70-100 Blood Urea Nitrogen 8 mg/dL 6-24 Creatinine 0.60 mg/dL 0.50-1.40 BUN/Creatinine Ratio 13.3 8-20 Calcium 9.5 mg/dL 8.1-9.9 Total Protein 6.3 g/dL 6.2-8.1 Albumin 3.7 g/dL 3.6-5.4 Globulin 2.6 g/dL 2-4 Albumin/Globulin Ratio 1.4 1-3 Total Bilirubin 0.4 mg/dL 0.4-1.5 Alkaline Phosphatase 54 U/L 30-110 Alt 23 U/L 14-54 Ast 22 U/L 12-42 Egfr Non- 116.6 >60 Egfr 150.0 >60 35 Laboratory test 10/07/2012 [facility] Creatine Kinase 57 U/L 0-200 finding [phone] CKMB 10/07/2012 [facility] CKMB In NG/ML 0.6 ng/mL 0.3-4.0 [phone] CKMB % 1.0 % 0-9 36 Laboratory 10/07/2012 [facility] Troponin I 0 ng/mL 0-0.06 37 test finding [phone] Laboratory 03/13/2011 [facility] Throat NF 38 test finding [phone] Culture Full Laboratory 03/13/2011 In House Lab Strep Screen neg Neg test finding ([phone])- - Laboratory 02/20/2011 [facility] Cytology ----- 39 test finding [phone] <SEE NOTE> Rapid Strep A 07/05/2010 [facility] Rapid Strep The hand spring repairer 40 [phone] A <SEE NOTE> 04/14/2010 [facility] Specific 1.029 1.010-1.0 (HCG) Urine [phone] [place] 30 Urine NEGATIVE Negative 41 Urinalysis 04/14/2010 [facility] Ua Color YELLOW Yellow [phone] Appearance-Urine CLEAR Clear Specific [place]-Ur 1.030 1.010-1.030 Esterase-Urine NEGATIVE Negative Nitrite NEGATIVE Negative Dwbswqzdrhux-Dv-TBB NEGATIVE Negative Protein-Urine NEGATIVE Negative PH-Urine 6.0 5-9 Blood-Urine NEGATIVE Negative Ketones-Urine NEGATIVE Negative Bilirubin-Ur NEGATIVE Negative Glucose-Urine NEGATIVE Negative Laboratory test 03/01/2010 [facility] Throat-Beta NF 42 finding [phone] Strep Culture Rapid Strep A 03/01/2010 [facility] Rapid Strep A The hand spring repairer 43 [phone] <SEE NOTE> Laboratory test 04/01/2009 [facility] Urine Culture SN2 44 finding [phone] Sensitivi Urinalysis 04/01/2009 [facility] Ua Color YELLOW W/Microscopic [phone] Appearance-Urine CLOUDY Specific [place]-Ur 1.014 1.010-1.030 Esterase-Urine 3+ Abnormal Negative Nitrite NEGATIVE Negative Xzmdvvytdjzg-[id number]-QKI NEGATIVE Negative Protein-Urine TRACE Abnormal Negative PH-Urine 7.0 5-9 Blood-Urine 2+ Abnormal Negative Ketones-Urine NEGATIVE Negative Bilirubin-Ur NEGATIVE Negative Glucose-Urine NEGATIVE Negative WBC-Urine TNTC Abnormal 0-5 RBC-Urine 5-10 Abnormal 0-2 Epith Cells-Ur MODERATE Bacteria-Urine TRACE Ua Comments (SEE NOTE) 45 Urinalysis Stat 04/01/2009 [facility] Ua Color YELLOW [phone] Appearance-Urine CLOUDY Specific [place]-Ur 1.014 1.010-1.030 Esterase-Urine 3+ Abnormal Negative Nitrite NEGATIVE Negative Cawcuauqpztc-Dh-YBU NEGATIVE Negative Protein-Urine TRACE Abnormal Negative PH-Urine 7.0 5-9 Blood-Urine 2+ Abnormal Negative Ketones-Urine NEGATIVE Negative Bilirubin-Ur NEGATIVE Negative Glucose-Urine NEGATIVE Negative Rapid Strep A 02/10/2009 [facility] Rapid Strep The hand spring repairer 46 [phone] A <SEE NOTE> Laboratory test 02/10/2009 [facility] Throat-Beta NF 47 finding [phone] Strep Culture Basic Metabolic 02/10/2009 [facility] Sodium 138 mmol /L 135-1 Panel Stat [phone] 45 Potassium 3.7 mmol/L 3.5-5.0 Chloride 107 mmol/L 101-111 Co2 (Carbon Dioxide) 26.0 mmol/L 22-32 Anion Gap 5.0 mmol/L 2-11 48 Glucose 90 mg/dL 70-100 49 BUN 9 mg/dL 6-24 Creatinine 0.60 mg/dL 0.50-1.40 One Over Creatinine 1.60 BUN/Creatinine Ratio 15.0 8-20 Calcium 8.7 mg/dL 8.1-9.9 50 CBC With 02/10/2009 [facility] White Blood 18.1 CUMM High 4.8-10.8 Manual Diff [phone] Count Stat Red Cell Count 4.75 CUMM 4.2-5.4 Hemoglobin 14.0 g/dL 12.0-16.0 Hematocrit 41 % 35-47 Mean Corpuscular Volume 85 um3 79-97 Mean Corpuscular Hemoglob 30 pg 27-31 Mean Corpuscular HGB Cone 35 g/dL 32-36 Redcell Distribution WDTH 14 % 10.5-15 Platelet Count 445 CUMM 150-450 Mean Platelet Volume 7.9 um3 7.4-10.4 Polysegmented Neutrophil 79 % 38-83 Lymphocyte 15 % Low 25-47 Monocyte 4 % 0-13 Eosenophil 1 % 0-6 Atypical Lymph 1 % 0-6 Absolute Neutrophil Count 14.2 Anisocytosis SLIGHT Laboratory 01/18/2009 [facility] Throat-Beta NF 51 test finding [phone] Strep Culture Rapid Strep A 01/18/2009 [facility] Rapid Strep A The hand spring repairer 52 [phone] <SEE NOTE> CBC With 01/18/2009 [facility] White Blood 11.9 CUMM High 4.8 53 Manual Diff [phone] Count -10 Stat .8 Red Cell Count 4.74 CUMM 4.2-5.4 Hemoglobin 14.0 g/dL 12.0-16.0 Hematocrit 41 % 35-47 Mean Corpuscular Volume 87 um3 79-97 Mean Corpuscular Hemoglob 30 pg 27-31 Mean Corpuscular HGB Cone 34 g/dL 32-36 Redcell Distribution WDTH 13 % 10.5-15 Platelet Count 403 CUMM 150-450 Mean Platelet Volume 8.0 um3 7.4-10.4 Polysegmented Neutrophil 69 % 38-83 Band Neutrophil 1 % 0-8 Lymphocyte 18 % Low 25-47 Monocyte 9 % 0-13 Eosenophil 1 % 0-6 Atypical Lymph 2 % 0-6 Absolute Neutrophil Count 8.3 RBC Morphology NORMAL Laboratory test 01/18/2009 [facility] Monospot Stat NEGATIVE Negative finding [phone] Urine DIP 01/26/2008 In House Lab Leukocytes NEG Neg (607)- - Urine Nitrites NEG Neg Urine pH 8 High 5-6 Total Protein, Urine NEG Neg Urine Glucose NORM Norm Urine Ketones NEG Neg Urobilinogen NORM Norm Urine Bilirubin NEG Neg Urine Blood NEG Neg Specific [place] N/A Low 1.01-1.02 GCCHLTP 01/26/2008 [facility] CHL On Thin Prep NEGATIVE Negative 54 [phone] Vial GC On Thin Prep Vial NEGATIVE Negative 55 Laboratory test 01/26/2008 [facility] Cytology ------ 56 finding [phone] <SEE NOTE> Urine DIP 10/30/2007 In House Lab Leukocytes NEG Neg (607)- - Urine Nitrites NEG Neg Urine pH 5 5-6 Total Protein, Urine NEG Neg Urine Glucose NORM Norm Urine Ketones NEG Neg Urobilinogen NORM Norm Urine Bilirubin NEG Neg Urine Blood 250 High Neg Specific [place] N/A Low 1.01-1.02 Laboratory test finding 10/01/2007 In House Lab Test, Urine NEG (607)- - 1 [id number] 2 [id number] 3 [id number] 4 Standard intensity warfarin therapeutic range: 2.0-3.0 High intensity warfarin therapeutic range: 2.5-3.5 5 Full Stack Developer: [id number] 6 Because ethnic data is not always readily available, this report includes an eGFR for both -Americans and non- Americans. The National Kidney Disease Education Program (NKDEP) does not endorse the use of the MDRD equation for patients that are not between the ages of 18 and 70, are , have extremes of body size, muscle mass, or nutritional status, or are non- or non-. According to the National Kidney Foundation, irrespective of diagnosis, the stage of the disease is based on the level of kidney function: Stage Description GFR(mL/min/1.73 m(2)) 1 Kidney damage with normal or decreased GFR 90 2 Kidney damage with mild decrease in GFR 60-89 3 Moderate decrease in GFR 30-59 4 Severe decrease in GFR 15-29 5 Kidney failure <15 (or dialysis) 7 <5.0 Negative 5.0 - 25.0 Indeterminate (Repeat testing recommended after 72 hours) >25.0 Positive Perimenopausal women can display HCG levels of up to 20 mIU/mL 8 [id number] 9 Because ethnic data is not always readily available, this report includes an eGFR for both -Americans and non- Americans. The National Kidney Disease Education Program (NKDEP) does not endorse the use of the MDRD equation for patients that are not between the ages of 18 and 70, are , have extremes of body size, muscle mass, or nutritional status, or are non- or non-. According to the National Kidney Foundation, irrespective of diagnosis, the stage of the disease is based on the level of kidney function: Stage Description GFR(mL/min/1.73 m(2)) 1 Kidney damage with normal or decreased GFR 90 2 Kidney damage with mild decrease in GFR 60-89 3 Moderate decrease in GFR 30-59 4 Severe decrease in GFR 15-29 5 Kidney failure <15 (or dialysis) 10 [id number] 11 Normal Range 180 to 914 Indeterminate Range 145 to 180 Deficient Range <145 12 [id number] 13 Full Stack Developer: [id number] Full Stack Developer: [id number] 15 [facility] Severe Sepsis and Septic Shock Management Bundle Measure requires all lactic acids initially measuring >2.0 mmol/L be repeated. 16 Because ethnic data is not always readily available, this report includes an eGFR for both -Americans and non- Americans. The National Kidney Disease Education Program (NKDEP) does not endorse the use of the MDRD equation for patients that are not between the ages of 18 and 70, are , have extremes of body size, muscle mass, or nutritional status, or are non- or non-. According to the National Kidney Foundation, irrespective of diagnosis, the stage of the disease is based on the level of kidney function: Stage Description GFR(mL/min/1.73 m(2)) 1 Kidney damage with normal or decreased GFR 90 2 Kidney damage with mild decrease in GFR 60-89 3 Moderate decrease in GFR 30-59 4 Severe decrease in GFR 15-29 5 Kidney failure <15 (or dialysis) 17 SEE RESULT BELOW Name: MARLENE VERAS : [address]: Ash Waller III CERTIFIED OPTICIAN Acct: [id number] Unit: [id number] AGE: 36 Location: [facility] Re03/06/16 SEX: F Status: REG REF SPEC: [id number] INDY: 03/06/[address]: Ash Waller III CERTIFIED OPTICIAN REQ: [id number] RECD: 03/06/164 STATUS: COMP _ SOURCE: THROAT SPDESC: ORDERED: Throat Culture COMMENTS: [id number] Procedure Result Reported Site Throat Culture Final 03/08/16- 1348 ML Organism 1 NORMAL ARTURO Quantity 2+ Throat cultures are clinically indicated to detect the presence of group A strep, arcanobacterium and yeast. In certain cases, predominating organisms will be reported. * ML - MAIN LAB ([facility]) . END OF REPORT * ML=Testing performed at Main Lab DEPARTMENT OF PATHOLOGY, [address] [place] [address] King Dumont M.D. Director [facility] # [id number] 18 Female urine specimens have been self-validated by [facility] and have been granted conditional assay approval by [facility]. 19 Desirable <150 Borderline high 150-199 High 200-499 Very High >500 20 Desirable <200 Borderline high 200-239 High >239 21 Low <40 Desirable: 40-60 High: >60 22 Desirable: <100 mg/dL Near Optimal: 100-129 mg/dL Borderline High: 130-159 mg/dL High: 160-189 mg/dL Very High: >189 mg/dL 23 Therapeutic target for the treatment of diabetes Mellitus patients is <7% HBA1C, and in selective patients <6.0%.Please refer to [place] [employer] Diabetic care guidelines for further information. 24 It is recognized that currently available assays for the detection of antibodies to HIV-1 and/or HIV-2 may not detect all infected individuals. HIV antibodies may be undetectable in some stages of the infection and in some clinical conditions. The performance of this assay has not been established for populations of infants or children. Assayed by Chemiluminescence Microparticle Immunoassay on the Siemens Advia Centaur CP. Values obtained with different methods or kits cannot be used interchangeably.The diagnostic specificity of the ADVIA Centaur 1/O/2 Enhanced assay in the low risk population was 99.90% (6052/6058) with a 95% confidence interval of 99.78 to 99.96%. 25 RUN DATE: 11/09/13 [facility] LIVE PAGE 1 RUN TIME: [address] [place] [address] Specimen Inquiry Name: MOLINAMARLENE : [address]: Tano Henderson Acct: [id number] Unit: [id number] AGE: 33 Location: ED Re11/07/13 SEX: F Status: DEP ER SPEC: [id number] INDY: 11/07/13-1754 [facility] DR: Mirian ORCHA REQ: [id number] RECD: 11/07/13 STATUS: LEON RODRIGUEZ DR: Tano Hayes CERTIFIED OPTICIAN _ SOURCE: URINE SPDESC: ORDERED: Urine Culture Procedure Result Verified Site Urine Culture Final 11/09/13- 0930 ML No Growth Day 2 (<1,000 CFU/mL) END OF REPORT * ML=Testing performed at Main Lab DEPARTMENT OF PATHOLOGY, [facility] [employer] [place], [place] [address] King Dumont M.D. Director [facility] Permit #[id number] 26 Because ethnic data is not always readily available, this report includes an eGFR for both -Americans and non- Americans. The National Kidney Disease Education Program (NKDEP) does not endorse the use of the MDRD equation for patients that are not between the ages of 18 and 70, are , have extremes of body size, muscle mass, or nutritional status, or are non- or non-. According to the National Kidney Foundation, irrespective of diagnosis, the stage of the disease is based on the level of kidney function: Stage Description GFR(mL/min/1.73 m(2)) 1 Kidney damage with normal or decreased GFR 90 2 Kidney damage with mild decrease in GFR 60-89 3 Moderate decrease in GFR 30-59 4 Severe decrease in GFR 15-29 5 Kidney failure <15 (or dialysis) 27 RUN DATE: 11/02/13 [facility] LIVE PAGE 1 RUN TIME: 1740 [facility] [place], [place] [address] Specimen Inquiry Name: MARLENE VERAS : [address]: Noel Hernandez DO Acct: [id number] Unit: [id number] AGE: 33 Location: ED Re10/28/13 SEX: F Status: DEP ER SPEC: [id number] INDY: 10/28/[address]: Mirian ROCHA REQ: [id number] RECD: 10/28/13 STATUS: LEON RODRIGUEZ DR: Noel Hayes CERTIFIED OPTICIAN _ SOURCE: BLOOD,VENO SPDESC: ORDERED: Blood Cult Procedure Result Verified Site Aerobic Culture Bottle Final 11/02/13- 1741 ML No Growth Day 5 Anaerobic Culture Bottle Final 11/02/13- 1741 ML No Growth Day 5 END OF REPORT * ML=Testing performed at Main Lab DEPARTMENT OF PATHOLOGY, [facility] [address] [place], [place] [address] King Dumont M.D. Director [facility] Permit #[id number] 28 RUN DATE: 11/02/13 [facility] LIVE PAGE 1 RUN TIME: 174 [facility] [place], [place] [address] Specimen Inquiry Name: MARLENE VERAS : [address]: Noel Hernandez DO Acct: [id number] Unit: [id number] AGE: 33 Location: ED Re10/28/13 SEX: F Status: DEP ER SPEC: [id number] INDY: 10/28/13 [facility] DR: Mirian ROCHA REQ: [id number] RECD: 10/28/13 STATUS: LEON RODRIGUEZ DR: Noel Hayes NP _ SOURCE: BLOOD,VENO [facility]: ORDERED: Blood Cult Procedure Result Verified Site Aerobic Culture Bottle Final 11/02/131740 ML No Growth Day 5 Anaerobic Culture Bottle Final 11/02/131740 ML No Growth Day 5 END OF REPORT * ML=Testing performed at Main Lab DEPARTMENT OF PATHOLOGY, [address] [place] [address] King Dumont M.D. Director [facility] Permit #[id number] 29 Because ethnic data is not always readily available, this report includes an eGFR for both -Americans and non- Americans. The National Kidney Disease Education Program (NKDEP) does not endorse the use of the MDRD equation for patients that are not between the ages of 18 and 70, are , have extremes of body size, muscle mass, or nutritional status, or are non- or non-. According to the National Kidney Foundation, irrespective of diagnosis, the stage of the disease is based on the level of kidney function: Stage Description GFR(mL/min/1.73 m(2)) 1 Kidney damage with normal or decreased GFR 90 2 Kidney damage with mild decrease in GFR 60-89 3 Moderate decrease in GFR 30-59 4 Severe decrease in GFR 15-29 5 Kidney failure <15 (or dialysis) 30 Reference Range and Interpretation: TnI (ng/mL) Interpretation Less Than 0.06 ng/mL Not supportive of diagnosis of [place] 0.06 - 0.50 ng/mL Indeterminate: suggest serial studies if clinically indicated. Greater than 0.5 ng/mL Consistent with diagnosis of SC 31 The detection limit for Ethanol is 10.0 mg/dl . Values less than 10.0 mg/dl cannot be accurately measured. 32 RUN DATE: 04/06/13 [facility] LIVE PAGE 1 RUN TIME: 1048 [address] [place], [place] [address] Specimen Inquiry Name: MARLENE VERAS : [address]: Zachary Mo MD Acct: [id number] Unit: [id number] AGE: 33 Location: ED Re04/04/13 SEX: F Status: DEP ER SPEC: [id number] INDY: 04/04/13-1555 [facility] DR: Rosa RAINEY REQ: [id number] RECD: 04/04/13 STATUS: LEON RODRIGUEZ DR: Zachary Cruz CERTIFIED OPTICIAN _ SOURCE: URINE SPDESC: ORDERED: Urine Culture Procedure Result Verified Site Urine Culture Final 04/06/13- 1047 ML Organism 1 NORMAL ARTURO [place] Count >100,000 (Many) CFU/ML END OF REPORT * ML=Testing performed at Main Lab DEPARTMENT OF PATHOLOGY, [facility] [address] [place], [place] [address] King Dumont M.D. Director [facility] Permit #[id number] 33 RUN DATE: 11/28/12 [facility] LIVE PAGE 1 RUN TIME: 1029 [address] [place], [place] [address] Specimen Inquiry Name: MARLENE VERAS : [address]: Zachary Carter MD Acct: [id number] Unit: [id number] AGE: 32 Location: ED Re11/26/12 SEX: F Status: DEP ER SPEC: [id number] INDY: 11/26/[address]: [facility] REQ: [id number] RECD: 11/26/12 STATUS: LEON RODRIGUEZ DR: Zachary Cruz NP _ SOURCE: URINE SPDESC: ORDERED: Urine Culture Procedure Result Verified Site Urine Culture Final 11/28/12- 1029 ML Organism 1 NORMAL ARTURO [place] Count >100,000 (Many) CFU/ML END OF REPORT * ML=Testing performed at Main Lab DEPARTMENT OF PATHOLOGY, [address] [place] [address] King Dumont M.D. Director [facility] Permit #[id number] 34 Please note: The following may produce a false positive D Dimer test: - Rheumatoid factor greater than 60 IU/ml - Plasma hemoglobin greater than 0.05 gm/dl - Bilirubin greater than 50 mg/dl - Lipids greater than 1000 mg/dl - FDP greater than 20 ug/ml 35 Because ethnic data is not always readily available, this report includes an eGFR for both -Americans and non- Americans. The National Kidney Disease Education Program (NKDEP) does not endorse the use of the MDRD equation for patients that are not between the ages of 18 and 70, are , have extremes of body size, muscle mass, or nutritional status, or are non- or non-. According to the National Kidney Foundation, irrespective of diagnosis, the stage of the disease is based on the level of kidney function: Stage Description GFR(mL/min/1.73 m(2)) 1 Kidney damage with normal or decreased GFR 90 2 Kidney damage with mild decrease in GFR 60-89 3 Moderate decrease in GFR 30-59 4 Severe decrease in GFR 15-29 5 Kidney failure <15 (or dialysis) 36 Interpretation %CK-MB; < 5% Not supportive of diagnosis of SC 5 - <10% Indeterminate; suggest serial studies 10% or > Consistent with diagnosis of SC 37 Reference Range and Interpretation: TnI (ng/ml) Interpretation Less Than 0.06 ng/mL Not supportive of diagnosis of SC 0.06 - 0.50 ng/ml Indeterminate: suggest serial studies if clinically indicated. Greater than 0.5 ng/mL Consistent with diagnosis of SC 38 NORMAL THROAT ARTURO 39 ---- RUN DATE: 02/21/11 [facility] NMI LIVE PAGE 1 RUN TIME: 1341 Specimen Inquiry RUN USER: INTERFACE -- Name: MARLENE VERAS Aissatou Status: REG REF Re02/20/11 Age/Sex: 30/F Unit#: [id number] Location: [facility] : 81 -- Specimen: [id number] SOUT Spec Date: 02/20/[address]: Gudelia alba NP Spec Type: CYTOLOGY Received: 02/21/11 Copies to: SOURCE ECTOCERVICAL/ENDOCERVICAL Thin Prep with Reflex HPV Test PATIENT INFORMATION ACTUAL COLLECTION DATE: 02/20/11 LAST MENSTRUAL PERIOD: 01/19/11 ADEQUACY OF SPECIMEN Satisfactory for evaluation * Transformation zone component identified * DIAGNOSIS NEGATIVE FOR INTRAEPITHELIAL LESION OR MALIGNANCY * This Pap test was evaluated with the assistance of the NovoEDPrep Pap Test Imaging System. The Pap Smear is a screening test designed to aid in the detection of premalign ant and malignant conditions of the uterine cervix. It is not a diagnostic procedure a nd should not be used as the sole means of detecting cervical cancer. Both false- positiv e and false-negative reports do occur. Depending on your risk status, a Pap smear kimberly uld be obtained and evaluated every one to three years. Initial evaluation performed by Beatriz VENCES([facility]) 02/21/11 Final Interpretation electronically signed by: Beatriz VENCES([facility]) 02/21/11 134 0 -- -- DEPARTMENT OF PATHOLOGY, [address] [place] [address] [facility] Permit #[id number] King Dumont M.D. Director Chandler Napoles M.D. Electrical And Instrumentation Mechanic Dir doris -- 40 The hand spring repairer and regulatory agencies both recommend that a throat culture for beta strep be performed if a Rapid Group A Strep assay yields a negative result. Therefore a culture will be automatically performed on all negative samples. POSITIVE FOR GROUP A STREP BY ENZYME IMMUNOASSAY 41 If is still suspected, please repeat test after 48 to 72 hours. . 42 NEGATIVE FOR GROUP A BETA STREPTOCOCCUS 43 The hand spring repairer and regulatory agencies both recommend that a throat culture for beta strep be performed if a Rapid Group A Strep assay yields a negative result. Therefore a culture will be automatically performed on all negative samples. NEGATIVE FOR GROUP A STREP BY ENZYME IMMUNOASSAY 44 SCANT NORMAL URETHRAL OR PERINEAL ARTURO 45 SPERM PRESENT 46 The hand spring repairer and regulatory agencies both recommend that a throat culture for beta strep be performed if a Rapid Group A Strep assay yields a negative result. Therefore a culture will be automatically performed on all negative samples. N^NEGATIVE FOR GROUP A STREP BY ENZYME IMMUNOASSAY^STREPA 47 NEGATIVE FOR GROUP A BETA STREPTOCOCCUS 48 Anion gap measurement may be of limited value in the presence of any alkalosis, especially in a combined acid base disorder. . 49 Note change in reference range as of 06/17/08. The change was based on recommendations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
--- NOTE | 2019-04-10 01:01 | ED ---
Hypertension - HPI Summary HPI Summary: Patient presents to the ED for the third time this week for ongoing headache and elevated blood pressure. Denies any other symptoms pain or injury. States ongoing intermittent headache for 3 weeks. Patient started on atenolol by primary care today. - History of Current Complaint Chief Complaint: EDHypertension Stated Complaint: HIGH BP AGAIN PER PT Time Seen by Provider: 04/10/19 00:18 Hx Obtained From: Patient Hx Last Menstrual Period: 09/27/17 Onset/Duration: Started Weeks Ago Timing: Intermittent Aggravating Factor(s): Nothing Alleviating Factor(s): Nothing Associated Signs & Symptoms: Headaches - Allergies/Home Medications Allergies/Adverse Reactions: Allergies Allergy/AdvReac Type Severity Reaction Status Date / Time LOBSTER Allergy Severe Rash And Uncoded 04/09/19 14:23 Itching PMH/Surg Hx/FS Hx/Imm Hx Endocrine/Hematology History: Denies: Hx Diabetes, Hx Thyroid Disease Cardiovascular History: Reports: Hx Hypertension - NO MEDS Denies: Hx Congestive Heart Failure, Hx Deep Vein Thrombosis, Hx Pacemaker/ ICD, Other Cardiovascular Problems/Disorders Respiratory History: Reports: Other Respiratory Problems/Disorders - SMOKER Denies: Hx Asthma, Hx Chronic Obstructive Pulmonary Disease (COPD) GI History: Denies: Hx Ulcer, Other GI Disorders History: Denies: Hx Renal Disease, Other Problems/Disorders Sensory History: Reports: Hx Contacts or Glasses Denies: Hx Hearing Aid Opthamlomology History: Reports: Hx Contacts or Glasses EENT History: Denies: Hx Deafness Neurological History: Reports: Hx Migraine Psychiatric History: Reports: Hx Depression - HX OF - Surgical History Surgery Procedure, Year, and Place: Csections 1999,2001,2006,[place] [facility] [place]. TUBAL LIGATION 2009 [facility] [place] Hx Anesthesia Reactions: No Infectious Disease History: No Infectious Disease History: Denies: Hx Hepatitis, Hx Human Immunodeficiency Virus (HIV), Traveled Outside the [place] in Last 30 Days - Family History Known Family History: Positive: Other - DVT - Social History Alcohol Use: None Hx Substance Use: No Substance Use Type: Reports: Marijuana Substance Use Comment - Amount & Last Used: EVERY DAY MARIJUANA SMOKER Hx Tobacco Use: Yes Smoking Status (MU): Heavy Every Day Tobacco Smoker Amount Used/How Often: 17 YR HX 1PPD Length of Time of Smoking/Using Tobacco: 1 PPD Review of Systems Constitutional: Negative Eyes: Negative ENT: Negative Cardiovascular: Negative Gastrointestinal: Negative Genitourinary: Negative Musculoskeletal: Negative Skin: Negative Positive: Headache Psychological: Normal All Other Systems Reviewed And Are Negative: Yes Physical Exam - Summary Physical Exam Summary: Neuro exam normal. Lung sounds clear to auscultation bilaterally. RRR. Abdomen soft nontender. No peripheral edema. Triage Information Reviewed: Yes Vital Signs On Initial Exam: Initial Vitals Temp Pulse Resp BP Pulse Ox 97 F 105 22 185/123 95 04/09/19 23:54 04/09/19 23:54 04/09/19 23:54 04/09/19 23:54 04/09/19 23:54 Vital Signs Reviewed: Yes Appearance: Positive: Well-Appearing Skin: Positive: Warm Head/Face: Positive: Normal Head/Face Inspection Eyes: Positive: Normal ENT: Positive: Normal ENT inspection Neck: Positive: Supple Respiratory/Lung Sounds: Positive: Clear to Auscultation Cardiovascular: Positive: Normal Abdomen Description: Positive: Nontender Musculoskeletal: Positive: Normal Neurological: Positive: Normal Psychiatric: Positive: Normal AVPU Assessment: Alert - [place] Coma Scale Best Eye Response: 4 - Spontaneous Best Motor Response: 6 - Obeys Commands Best Verbal Response: 5 - Oriented Coma Scale Total: 15 Diagnostics - Vital Signs Vital Signs Temp Pulse Resp BP Pulse Ox 04/10/19 00:26 99 20 136/99 04/09/19 23:54 97 F 105 22 185/123 95 - Laboratory Lab Statement: Any lab studies that have been ordered have been reviewed, and results considered in the medical decision making process. Hypertension Course/Dx - Course Course Of Treatment: Patient presents to the ED for the third time this week for ongoing headache and elevated blood pressure. Denies any other symptoms pain or injury. States ongoing intermittent headache for 3 weeks. Patient started on atenolol 25 mg by primary care today. Physical exam:Neuro exam normal. Lung sounds clear to auscultation bilaterally. RRR. Abdomen soft nontender. No peripheral edema. Elevated blood pressure up to 185/93. Self resolved down to 144/82. Patient given Tylenol 975 mg, Reglan 10 mg and Benadryl 50 mg for headache. Advised to follow-up with primary care for management of hypertension. Patient understands and approves of plan. - Diagnoses Provider Diagnoses: Elevated blood pressure reading, Headache Discharge - Sign-Out/Discharge Documenting (check all that apply): Patient Departure Patient Received Moderate/Deep Sedation with Procedure: No - Discharge Plan Condition: Stable Disposition: HOME Patient Education Materials: Acute Headache (ED), Hypertension (ED) Referrals: Gudelia Cruz NP [Primary Care Provider] - Additional Instructions: Follow-up with your primary care for management of hypertension. Return to the ED for any new or worsening symptoms. - Billing Disposition and Condition Condition: STABLE Disposition: Home
[2019-04-10] MEDS ORDERED: Acetaminophen TAB* 325 MG PO ONE (01:16)
[2019-04-10] MEDS ORDERED: Metoclopramide TAB* 10 MG PO ONE (01:17)
[2019-04-10] MEDS ORDERED: diPHENhydraMINE PO* 50 MG PO ONE (01:17)
[2019-04-10 02:04] VITALS: BP 144/82
== END 2019-04-10 02:50 | disposition home or self-care (01) ==
LOC: ED 23:52
DX: R03.0 Elevated blood-pressure reading, without diagnosis of hypertension (principal); R51 Headache; Z91.013 Allergy to seafood; F17.200 Nicotine dependence, unspecified, uncomplicated
CPT/HCPCS: 99282; A9270-GY

== ENCOUNTER 2019-04-11 22:11 | Emergency (ER) | payer OTHER ==
[2019-04-11] MEDS ORDERED: Labetalol IV* 5 MG/ML 20 ML VIAL IV PUSH ONE (22:51)
--- NOTE | 2019-04-11 22:51 | ED ---
Hypertension - HPI Summary HPI Summary: This patient is a 39 year old F presenting to [facility] with a chief complaint of elevated BP with headache and numbness to the cheeks for the past hour. She states she was recently prescribed atenolol, but has not taken the medication today. Headache rated 6/10 in severity. - History of Current Complaint Chief Complaint: EDHypertension Stated Complaint: HIGH BP, NUMBNESS IN FACE PER PT Time Seen by Provider: 04/11/19 22:40 Hx Obtained From: Patient Hx Last Menstrual Period: 09/27/17 Onset/Duration: Started Hours Ago Timing: Constant Aggravating Factor(s): Other: - medication non-compliance Associated Signs & Symptoms: Headaches, Numbness Related Hx: Rx Non-Compliance - Allergies/Home Medications Allergies/Adverse Reactions: Allergies Allergy/AdvReac Type Severity Reaction Status Date / Time LOBSTER Allergy Severe Rash And Uncoded 04/09/19 14:23 Itching Home Medications: Home Medications NK [No Home Medications Reported] 04/11/19 [History Confirmed 04/11/19] PMH/Surg Hx/FS Hx/Imm Hx Endocrine/Hematology History: Denies: Hx Diabetes, Hx Thyroid Disease Cardiovascular History: Reports: Hx Hypertension - on MEDS Denies: Hx Congestive Heart Failure, Hx Deep Vein Thrombosis, Hx Pacemaker/ ICD, Other Cardiovascular Problems/Disorders Respiratory History: Reports: Other Respiratory Problems/Disorders - SMOKER Denies: Hx Asthma, Hx Chronic Obstructive Pulmonary Disease (COPD) GI History: Denies: Hx Ulcer, Other GI Disorders History: Denies: Hx Renal Disease, Other Problems/Disorders Sensory History: Reports: Hx Contacts or Glasses Denies: Hx Deafness, Hx Hearing Aid Opthamlomology History: Reports: Hx Contacts or Glasses Neurological History: Reports: Hx Migraine Psychiatric History: Reports: Hx Depression - HX OF - Surgical History Surgery Procedure, Year, and Place: [place]2001,2006[place] [facility] [place] [facility] [place]est[place] Reactions: No Infectious Disease History: No Infectious Disease History: Denies: Hx Hepatitis, Hx Human Immunodeficiency Virus (HIV), Traveled Outside the [place] in Last 30 Days - Family History Known Family History: Positive: Other - DVT - Social History Alcohol Use: None Hx Substance Use: No Substance Use Type: Reports: Marijuana Substance Use Comment - Amount & Last Used: EVERY DAY MARIJUANA SMOKER Hx Tobacco Use: Yes Smoking Status (MU): Heavy Every Day Tobacco Smoker Amount Used/How Often: 17 YR HX 1PPD Length of Time of Smoking/Using Tobacco: 1 PPD Review of Systems Positive: Other - elevated BP Positive: Headache, Numbness All Other Systems Reviewed And Are Negative: Yes Physical Exam - Summary Physical Exam Summary: VITAL SIGNS: Reviewed. GENERAL: Patient is a morbidly obese female who is lying comfortable in the stretcher. Patient is not in any acute respiratory distress. HEAD AND FACE: No signs of trauma. No ecchymosis, hematomas or skull depressions. No sinus tenderness. EYES: PERRLA, EOMI x 2, No injected conjunctiva, no nystagmus. EARS: Hearing grossly intact. Ear canals and tympanic membranes are within normal limits. MOUTH: Oropharynx within normal limits. NECK: Supple, trachea is midline, no adenopathy, no JVD, no carotid bruit, no c- spine tenderness, neck with full ROM CHEST: Symmetric, no tenderness at palpation LUNGS: Clear to auscultation bilaterally. No wheezing or crackles. CVS: Regular rate and rhythm, S1 and S2 present, no murmurs or gallops appreciated. ABDOMEN: Soft, non-tender. No signs of distention. No rebound no guarding, and no masses palpated. Bowel sounds are normal. EXTREMITIES: FROM in all major joints, no edema, no cyanosis or clubbing. NEURO: Alert and oriented x 3. No acute neurological deficits. Speech is normal and follows commands. SKIN: Dry and warm Triage Information Reviewed: Yes Vital Signs On Initial Exam: Initial Vitals Temp Pulse Resp BP Pulse Ox 97 F 90 18 223/120 97 04/11/19 22:13 04/11/19 22:13 04/11/19 22:13 04/11/19 22:13 04/11/19 22:13 Vital Signs Reviewed: Yes Diagnostics - Vital Signs Vital Signs Temp Pulse Resp BP Pulse Ox 04/11/19 22:47 84 188/116 99 04/11/19 22:44 83 97 04/11/19 22:13 97 F 90 18 223/120 97 - Laboratory Lab Statement: Any lab studies that have been ordered have been reviewed, and results considered in the medical decision making process. Hypertension Course/Dx - Course Course Of Treatment: 39 year old F presenting to [facility] with a chief complaint of elevated BP with headache and numbness to the cheeks for the past hour. She states she was recently prescribed atenolol, but has not taken the medication today. Patient is given 10mg Reglan, 20mg Trandate. BP did not improve so patient was given another 20mg Trandate. Additionally gien 15mg toradol and 25mg benadryl for headache. Patients headache and blood pressure are improved. Patient will be discharged home. She is instructed to take 15mg of atenolol daily and to follow up with her primary doctor. - Diagnoses Provider Diagnoses: Headache, Hypertension Discharge - Sign-Out/Discharge Documenting (check all that apply): Patient Departure - discharge Patient Received Moderate/Deep Sedation with Procedure: No - Discharge Plan Condition: Stable Disposition: HOME Patient Education Materials: Hypertension (ED) Referrals: Gudelia Cruz, SUPER[employer] [Primary Care Provider] - 2 Days Additional Instructions: Take 15mg of atenolol daily. Follow up with your primary doctor. RETURN TO THE EMERGENCY DEPARTMENT FOR CHANGING OR WORSENING SYMPTOMS. - Attestation Statements Document Initiated by Scribe: Yes Documenting Scribe: Aurora Butler Provider For Whom Scribe is Documenting (Include Credential): Kelby Montoya MD Scribe Attestation: Aurora Shahid, scribed for Kelby Montoya MD on 04/12/19 at 0109. Status of Scribe Document: Ready
[2019-04-11] MEDS ORDERED: diPHENhydraMINE IV* 50 MG/ML 1 ml VIAL (BENADRYL) SLOW PUSH ONE (23:33)
[2019-04-11] MEDS ORDERED: Ketorolac INJ* 30 MG/ML 1 ML VIAL IV PUSH ONE (23:33)
[2019-04-11] MEDS ORDERED: Metoclopramide IV* 5 MG/ML 2 ML VIAL IV SLOW PU ONE (23:33)
[2019-04-12] MEDS ORDERED: Labetalol IV* 5 MG/ML 20 ML VIAL IV PUSH ONE (00:20)
[2019-04-12 01:16] VITALS: BP 152/84
== END 2019-04-12 01:15 | disposition home or self-care (01) ==
LOC: ED 22:11
DX: R51 Headache (principal); R20.0 Anesthesia of skin; I10 Essential (primary) hypertension; F17.210 Nicotine dependence, cigarettes, uncomplicated; F12.10 Cannabis abuse, uncomplicated
CPT/HCPCS: 96374; 96375; 96376; 99284; J1200; J1885; J2765

== ENCOUNTER 2019-04-14 14:52 | Observation (INO) | payer OTHER ==
[2019-04-14] MEDS ORDERED: Metoprolol Tartrate IV* 1 MG/ML 5 ML VIAL IV ONE ×2 (15:19→18:51)
--- NOTE | 2019-04-14 15:29 | ED ---
Headache - HPI Summary HPI Summary: The patient is a 39 year old F presenting to [facility] accompanied by her with a chief complaint of body numbness and a left sided headache. She states that she can only feel her left arm and there is tingling everywhere in her body. She has a L sided TREJO which she states is an 8/10 in severity. She stated that she had high blood pressure yesterday but the headache started SOUND RECORDIST. She was recently prescribed Atenolol 25 mg on 04/09/[address] Buckner. Pt denies any fever, chills, erythema of eyes, sore throat, CP, SOB, cough, abdominal pain , N/V, dysuria, hematuria, myalgia, edema, rash, or dizziness. Her symptoms are aggravated and alleviated by nothing. The pt is very emotional and stated that she could not see out of her R eye. She has a PMHx of HTN and a SHx of smoking tobacco and marijuana. - History Of Current Complaint Chief Complaint: EDNeurologicalDeficit Stated Complaint: RT SIDED NUMBNESS/HEAD HURTS/ HIGH BP PER PT Time Seen by Provider: 04/14/19 15:08 Hx Obtained From: Patient Onset/Duration: Sudden Onset, Started hours ago, Still Present Initially Headache Was: Initial Pain Scale(0-10)= - 8/10, Severe Currently Pain Is: Current Pain Scale(0-10)= - 8/10, Severe Timing: Constant Character: Migraine Location of Headache: Other: - L side Aggravating Factor: Nothing Allevating Factors: Nothing Associated Signs And Symptoms: Negative - Pt denies any fever, chills, erythema of eyes, sore throat, CP, SOB, cough, abdominal pain, N/V, dysuria, hematuria, myalgia, edema, rash, or dizziness., Other (Noted In Comments) - Pt describes that her whole body is numb aside from her L arm. She can also not see out of her R eye - Allergies/Home Medications Allergies/Adverse Reactions: Allergies Allergy/AdvReac Type Severity Reaction Status Date / Time No Known Drug Allergies Allergy See Comment Verified 04/14/19 21:54 LOBSTER Allergy Severe Rash And Uncoded 04/14/19 15:02 Itching PMH/Surg Hx/FS Hx/Imm Hx Previously Healthy: No Endocrine/Hematology History: Denies: Hx Diabetes, Hx Thyroid Disease Cardiovascular History: Reports: Hx Hypertension - on MEDS Denies: Hx Congestive Heart Failure, Hx Deep Vein Thrombosis, Hx Pacemaker/ ICD, Other Cardiovascular Problems/Disorders Respiratory History: Reports: Other Respiratory Problems/Disorders - SMOKER Denies: Hx Asthma, Hx Chronic Obstructive Pulmonary Disease (COPD) GI History: Denies: Hx Ulcer, Other GI Disorders History: Denies: Hx Renal Disease, Other Problems/Disorders Sensory History: Reports: Hx Contacts or Glasses Denies: Hx Deafness, Hx Hearing Aid Opthamlomology History: Reports: Hx Contacts or Glasses Neurological History: Reports: Hx Migraine Psychiatric History: Reports: Hx Depression - HX OF - Surgical History Surgery Procedure, Year, and Place: Csections 1999,2001,2006,[place] [facility] [place] EPIDURAL ANESTHESIA. TUBAL LIGATION 2008 [facility] [place] Hx Anesthesia Reactions: No Infectious Disease History: No Infectious Disease History: Denies: Hx Hepatitis, Hx Human Immunodeficiency Virus (HIV), Traveled Outside the [place] in Last 30 Days - Family History Known Family History: Positive: Other - DVT - Social History Alcohol Use: None Hx Substance Use: No Substance Use Type: Reports: Marijuana Substance Use Comment - Amount & Last Used: EVERY DAY MARIJUANA SMOKER Hx Tobacco Use: Yes Smoking Status (MU): Heavy Every Day Tobacco Smoker Amount Used/How Often: 17 YR HX 1PPD Length of Time of Smoking/Using Tobacco: 1 PPD Review of Systems Negative: Fever, Chills Positive: Other - Pt states that she can't see out of her R eye. Negative: Erythema Negative: Sore Throat Negative: Chest Pain Negative: Shortness Of Breath, Cough Negative: Abdominal Pain, Vomiting, Nausea Negative: dysuria, hematuria Negative: Myalgia, Edema Negative: Rash Neurological: Negative - Dizziness, Other Positive: Headache, Numbness - Whole body other than L arm All Other Systems Reviewed And Are Negative: Yes Physical Exam - Summary Physical Exam Summary: Constitutional: Well-developed, Well-nourished, Alert. (-) Distressed Skin: Warm, Dry HENT: Normocephalic; Atraumatic Eyes: Conjunctiva normal Neck: Musculoskeletal ROM normal neck. (-) JVD, (-) Stridor, (-) Tracheal deviation Cardio: Rhythm regular, rate normal, Heart sounds normal; Intact distal pulses; The pedal pulses are 2+ and symmetric. Radial pulses are 2+ and symmetric. (-) Murmur Pulmonary/Chest wall: Effort normal. (-) Respiratory distress, (-) Wheezes, (-) Rales Abd: Soft. (-) Tenderness, (-) Distension, (-) Guarding, (-) Rebound Musculoskeletal: (-) Edema, Lymph: (-) Cervical adenopathy Neuro: Alert, Oriented x3, Strength normal, Cranial nerves II-XII are grossly intact. (-) Dysmetria, (-) Nystagmus, Finger to nose is intact, (-) Sensory deficit. says she cant see but has an intact corneal reflex bilaterally Psych: Tearful, Withdraws from confrontation Triage Information Reviewed: Yes Vital Signs On Initial Exam: Initial Vitals Temp Pulse Resp BP Pulse Ox 98.0 F 81 20 185/95 99 04/14/19 14:57 04/14/19 14:57 04/14/19 14:57 04/14/19 14:57 04/14/19 14:57 Vital Signs Reviewed: Yes Diagnostics - Vital Signs Vital Signs Temp Pulse Resp BP Pulse Ox 04/14/19 14:57 98.0 F 81 20 185/95 99 - Laboratory Result Diagrams: 04/14/19 15:32 04/14/19 15:32 Lab Statement: Any lab studies that have been ordered have been reviewed, and results considered in the medical decision making process. - CT Brain CT Interpretation Completed By: Radiologist Summary of CT Findings: Normal CT of the brain. ED Physician has reviewed this report. - EKG 1550 Cardiac Rate: NL - 66 BPM EKG Rhythm: Sinus Rhythm ST Segment: Normal Summary of EKG Findings: EKG was read at 1550 04/14/19 and has a normal sinus rhytm and rate of 66 BPM with a normal P axis and no STEMI. Interpreted by Dr. Tiffanie MD. Re-Evaluation - Re-Evaluation First Eval Re-Evaluation Time: 18:55 Change: Worse Comment: Pt reports feeling much better and that she has been taking her hypertensive medications. Due to her high blood pressure she will be evaluated for a hypertensive emergency and considered for admission. Headache Course/Dx - Course Course Of Treatment: The patient is a 39 year old F presenting to [facility] accompanied by her with a chief complaint of body numbness and a left sided headache. She states that she can only feel her left arm and there is tingling everywhere in her body. She has a L sided TREJO which she states is an 8/ 10 in severity. Upon her PE she is found to be tearful and her finger to nose is intact. The pt's corneal reflex is intact bilaterally despite her stating that she can't see. She received a Brain CT which was a Normal CT of the brain. Pt reports feeling much better and that she has been taking her hypertensive medications. Due to her high blood pressure she will be evaluated for a hypertensive emergency and considered for admission by Dr. Martínez, Hospitalist. She has been failing oral hypertensive medications and has had 5 ED visits in the past week due to hypertension. - Diagnoses Provider Diagnoses: Hypertensive urgency, Anxiety Discharge - Sign-Out/Discharge Documenting (check all that apply): Patient Departure - admitted - Discharge Plan Condition: Good Disposition: ADMITTED TO [facility] - Billing Disposition and Condition Condition: GOOD Disposition: Admitted to [facility] - Attestation Statements Document Initiated by Saule: Yes Documenting Scribe: Russell John Provider For Whom Daylin is Documenting (Include Credential): Nate Moreno MD Scribe Attestation: IRussell, scribed for Nate Moreno MD on 04/16/19 at 1038. Scribe Documentation Reviewed: Yes Provider Attestation: The documentation as recorded by the Russell fan accurately reflects the service I personally performed and the decisions made by me, Nate Moreno MD Status of Scribe Document: Viewed Consult Consult: Disscussed pt's case with Dr. Moore, Hospitalist, for possible admission due to hypertensive state. The pt will be evaluated for a hypertensive emergency.
[2019-04-14] MEDS ORDERED: Metoclopramide IV* 5 MG/ML 2 ML VIAL IV SLOW PU ONE (15:43)
[2019-04-14 16:09] LABS: ABS Basophils 0.1 10^3/ul (0-0.2); ABS Eosinophils 0.3 10^3/ul (0-0.6); ABS Lymphocytes 3.8 10^3/ul (1.0-4.8); ABS Monocytes 0.8 10^3/ul (0-0.8); ABS Neutrophils 7.9 10^3/ul (1.5-7.7); Eosinophil % 2.1 %; Hematocrit 43 % (35-47); Hemoglobin 14.4 g/dL (12.0-16.0); Lymphocyte % 29.5 %; Mean Corpuscular HGB Conc 34 g/dL (31-36); Mean Corpuscular Hemoglobin 29 pg (27-31); Mean Corpuscular Volume 85 fL (80-97); Mean Platelet Volume 8.7 fL (7.4-10.4); Nucleated Red Blood Cells % 0.1; Platelet Count 462 10^3/uL (150-450); Red Blood Count 5.02 10^6 /uL (3.70-4.87); Red Cell Distribution Width 14 % (10-15); White Blood Count 12.9 10^3/uL (3.5-10.8)
[2019-04-14 16:16] LABS: Albumin/Globulin Ratio 1.2 (1-3); BUN/Creatinine Ratio 13.6 (8-20); Calcium 9.5 mg/dL (8.6-10.3); EGFR Non-African American 114.1 (>60); Globulin 3.4 g/dL (2-4); Potassium 3.7 mmol/L (3.5-5.0); Total Bilirubin 0.6 mg/dL (0.2-1.0); Total Protein 7.4 g/dL (6.4-8.9)
[2019-04-14 16:35] LABS: TSH (Thyroid Stimulating Horm) 1.55 mcIU/mL (0.34-5.60)
[2019-04-14 16:37] LABS: Free T4 0.92 ng/dL (0.61-1.12)
[2019-04-14] MEDS ORDERED: LORazepam INJ* 2 MG/ML 1 ML VIAL IV PUSH ONE (17:09)
[2019-04-14] MEDS ORDERED: Lorazepam PYXIS KEY PRN (17:09)
[2019-04-14] MEDS ORDERED: Ketorolac INJ* 30 MG/ML 1 ML VIAL IV PUSH ONE (19:27)
[2019-04-14] MEDS ORDERED: hydrALAZINE IV* 20 MG/ML VIAL IV SLOW PU ONE (19:28)
[2019-04-14] MEDS ORDERED: Acetaminophen TAB* 325 MG PO PRN (20:37)
[2019-04-14] MEDS ORDERED: amLODIPine TAB* 5 MG PO ONE (20:37)
[2019-04-14] MEDS ORDERED: Ondansetron INJ* 2 MG/ML VIAL IV PRN (20:37)
[2019-04-14] MEDS ORDERED: Metoclopramide IV* 5 MG/ML 2 ML VIAL IV PRN (20:38)
[2019-04-14] MEDS ORDERED: hydrALAZINE IV* 20 MG/ML VIAL IV SLOW PU PRN (20:38)
[2019-04-14] MEDS ORDERED: SUMAtriptan TAB* 50 MG PO PRN (20:38)
[2019-04-14] MEDS ORDERED: hydrOXYzine HCL TAB* 25 MG PO PRN (20:40)
[2019-04-14] MEDS ORDERED: Nicotine Lozenge* mini 4 MG LOZNG.MINI MT PRN (20:41)
[2019-04-14] MEDS ORDERED: Enoxaparin(*) 40 MG/0.4 ML SYR SUBCUT SCH (21:00)
[2019-04-14] MEDS ORDERED: Lisinopril TAB* 5 MG ONE (21:20)
[2019-04-14] MEDS: Lisinopril TAB* 5 MG PO SCH (21:47)
[2019-04-14] MEDS: Magnesium Oxide TAB* 400 MG PO SCH (22:45)
--- NOTE | 2019-04-14 23:24 | HP ---
HISTORY AND PHYSICAL: DATE OF ADMISSION: 04/14/19 CHIEF COMPLAINT: Headache. PRIMARY CARE PROVIDER: Gudelia Cruz NP. WOOL WASHER: Oleg Hanson, the patient's fiance. CODE STATUS: Full. HPI is obtained from the patient. She is a fair historian. HISTORY OF PRESENT ILLNESS: This is a 39-year-old female with past medical history of hypertension, migraines, tobacco use, who is presenting for the fourth time in 3 days to the emergency room with complaint of headache and hypertension. The patient has a history of known migraine that are exacerbated by her uncontrolled hypertension. She was recently started on atenolol by ED providers. She has been having migraine for the past 3 weeks actually and trying to treat it at home, but returned to the ER again tonight with severe headaches left temporal region that radiates to left frontal accompanied by nausea, photo and phonophobia, and numbness of the perioral area of the face as well as right side of the arm that has been evaluated by Neurology on 04/09/19 and thought to be sequela of complex poorly controlled migraine. She was started on atenolol on 04/09/19, which she reports she has been taking, although still has uncontrolled hypertension and is on no other medications. She denies any chest pain, shortness of breath, confusion, or focal neurologic deficits. EMERGENCY ROOM COURSE: In the ER, blood pressure presenting is 185/95, heart rate 81, respiratory rate 20, 99% on room air, temperature 98. Head CT was done , which is her third head CT since 04/07/19! It is normal as it was in the past. An EKG shows normal sinus rhythm. Her labs are wholly unremarkable with the exception of mild leukocytosis to 12.9. TSH was normal. Cholesterol was normal. Hemoglobin A1c in 2015 was normal. The hospitalist team was asked to evaluate the patient given persistent hypertensive urgency. The patient was given metoprolol 10 mg IV x2, metoclopramide 10 mg IV x1, and Ativan 2 mg once with some symptomatic relief in her symptoms, although still with blood pressure elevated at 180/100 after 6 hours in the emergency room. Hospitalists were asked to admit the patient on observation status for hypertensive urgency management. PAST MEDICAL HISTORY: Hypertension, migraine headaches, tobacco use. PAST SURGICAL HISTORY: None. MEDICATIONS: The patient is prescribed atenolol 25 mg p.o. daily. ALLERGIES: Lobster. FAMILY HISTORY: Reviewed and noncontributory. SOCIAL HISTORY: The patient lives with her fiance. 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 She smokes tobacco, current 1 to 1-1/2 packs per day smoker with a 12- year history. Denies alcohol use. Uses marijuana, but denies other illicits. REVIEW OF SYSTEMS: Constitutional: Negative for fevers, chills, malaise. HEENT: Positive for headaches. No alfred vision changes. No sore throat. Cardiovascular: Negative for chest pain, palpitations, orthopnea. Respiratory: Negative for shortness of breath, cough, pleuritic chest pain. GI: Negative for diarrhea or abdominal pain. Positive for nausea. : Negative for dysuria , hematuria. Musculoskeletal: Negative for myalgias, arthralgias, or weakness. Skin is negative for rashes or lesions. Neurologic: Negative for focal weakness, is positive for numbness in the perioral area as well as right upper extremity, which is consistent with prior exams. Psychiatric: Positive for anxiety, negative for depression. Endocrine: Negative for polyuria, polydipsia. Heme: Negative for easy bruisability with adenopathy. PHYSICAL EXAMINATION GENERAL: This is a well-appearing obese female in no acute distress, sitting up in bed after returning from the bathroom. VITAL SIGNS: At the time of physical exam, blood pressure 180/100, heart rate 74, respiratory rate 23, oxygen saturation 98% on room air. HEENT: Extraocular muscles are intact. Pupils are equal and reactive. Sclerae are anicteric. Oral membranes are moist. NECK: Supple with no supraclavicular or cervical lymphadenopathy. RESPIRATORY: Clear lungs to auscultation bilaterally. CARDIAC: Regular rate and rhythm with no murmur, rubs, or gallops. ABDOMEN: Belly is soft, nontender, and nondistended with normoactive bowel sounds. SKIN: Without rashes or lesions. MUSCULOSKELETAL: She moves all 4 limbs spontaneously without pain. EXTREMITIES: She has no edema in bilateral lower extremities and DP 2+ pulses that are symmetrical. NEUROLOGIC: Cranial nerves II through XII are intact. She has sensation that is diminished in right upper extremity, although intermittent on exam. 5/5 strength throughout. Able to follow cerebellar commands. A and O x4. DIAGNOSTIC STUDIES/LAB DATA: White blood cell count 12.9, hemoglobin 14.4, hematocrit 85, platelets 462. Sodium 136, potassium 3.7, chloride 109, carbon dioxide 19, anion gap 8, BUN 8, creatinine 0.59, glucose 112. AST 14, ALT 14, alk phos 67, troponin 0, TSH 1.55. Imaging includes a brain CT, which shows no acute intracranial pathology. An electrocardiogram shows normal sinus rhythm with no evidence of acute ischemia. Imaging, labs, and EKG reviewed by myself. ASSESSMENT AND PLAN: This is a 39-year-old female with past medical history of hypertension, migraine, tobacco use. She is presenting with status migrainosus and hypertensive urgency. The patient will be admitted to observation and continue monitoring his following problems: 1. Hypertensive urgency. The patient is on atenolol only at baseline 25 mg low dose. This is not going to be adequate to treat her hypertension. We will start 2 oral agents, amlodipine and lisinopril and discontinue atenolol as she failed beta- taurus management and seems to have no improvement in her symptoms. She does have significant headaches and could consider long-acting propranolol for prophylaxis, although she has not failed any abortive therapy for her migraines and so would not advocate to start immediate prophylactic therapy with beta-blockers until trying and failing other abortive measures. 2. Hypertension. We will consider secondary hypertension workup after further chart review,as patient reports that she has NOT had hypertension over the course of her adult life. 3. Migraines. The patient is currently in status migrainosus with migraine off and on for the last 3 weeks. She is on no prophylactic agents. She is actually on no abortive agents, has never tried Triptan. Was prescribed magnesium last time, not taking it. We will start magnesium. We will offer sumatriptan. We will continue to monitor migraine symptoms once blood pressure is controlled. 4. Tobacco use. Nicotine replacement therapy will be offered. 5. Anxiety. P.r.n. Atarax will be offered. 6. Deep vein thrombosis prophylaxis. Start the patient on Lovenox for moderate risk for obesity and age. 7. FEN: Heart healthy diet. 8. Disposition: The patient is stable for admission to medical observation with telemetry given hypertension. 9. Code status is full. TIME SPENT: Thirty five minutes spent completing this admission with over half of that spent directly at the bedside of the patient providing direct patient care. Plan of care was discussed with the patient and her . They have no further questions and accept the plan as outlined. [id number]/[facility] #: [id number] JORGE
[2019-04-15] MEDS ORDERED: SUMAtriptan TAB* 50 MG PO PRN (00:41)
[2019-04-15] MEDS: Lisinopril TAB* 5 MG PO SCH (07:51)
[2019-04-15] MEDS: Magnesium Oxide TAB* 400 MG PO SCH (07:51)
[2019-04-15] MEDS ORDERED: amLODIPine TAB* 5 MG PO SCH (11:00)
[2019-04-15 12:34] VITALS: BP 158/98
--- NOTE | 2019-04-15 13:01 | DS ---
CC: Gudelia Cruz NP * DISCHARGE SUMMARY: DATE OF ADMISSION: 04/14/19 DATE OF DISCHARGE: 04/15/19 PRIMARY CARE PROVIDER: Gudelia Cruz NP ATTENDING PHYSICIAN: Dr. Edd Moore * (dictated by REDD Ruby). PRIMARY DIAGNOSES: 1. Hypertensive urgency. 2. Migraine. SECONDARY DIAGNOSIS: Tobacco abuse. STUDIES WHILE IN THE HOSPITAL: Brain CT, 04/14/19, impression: Normal CT of the brain. Renal ultrasound, 04/15/19, impression: No hydronephrosis or nephrolithiasis. ECG, 04/14/19: Normal sinus rhythm, rate 66, without ST changes. Troponin 0.00 x3, TSH 1.55, free T4 0.92, cortisol 3.60. ACTH, aldosterone, metanephrines plasma pending at the time of discharge; please follow up with primary care provider for these. DISCHARGE MEDICATIONS: Home medications: None. New home medications: 1. Amlodipine 10 mg p.o. daily. 2. Lisinopril 5 mg p.o. daily. 3. Magnesium oxide 400 mg p.o. daily. 4. Sumatriptan 50 mg p.o. daily p.r.n. migraine. Discontinued home medication: Atenolol. HISTORY OF PRESENT ILLNESS/HOSPITAL COURSE: Ms. Veras is a 39-year-old female with past medical history that includes hypertension, migraines, tobacco abuse, who has presented to the ER approximately 4 times in the last 5 days with complaints of headache and hypertension. She has a history of migraines. She was recently prescribed atenolol by ER providers, which she has been taking. She presented to the ER with headache on the left side, nausea, photophobia, phonophobia, numbness of the right face and perioral region. She was evaluated approximately 1 week ago by Neurology for this and was diagnosed with sequelae of poorly controlled complex migraine. She presented on 04/14/19 for the same concerns. She was admitted due to elevated blood pressure and uncontrolled migraine. Her atenolol was discontinued. She was started on amlodipine 10 mg and lisinopril 5 mg. Sumatriptan was ordered as an abortive agent for her migraines. The patient spent the night. Hydralazine was ordered p.r.n., which she did not require as her blood pressure trended down throughout her stay. On the day of discharge, the patient states that she does continue to have an intermittent headache, although notes that it is better controlled. She no longer has numbness to the right side of the face, although she states this comes and goes with her headache. She admits to a small amount of dizziness, which is attributed to her decrease in blood pressure since admission. She notes that she has been under a lot of stress recently as she is planning a wedding with her fiance that is coming up shortly. She has no family history of hypertension. While in the hospital, she did receive a workup for secondary hypertension, which included a renal ultrasound, which was within normal limits ; cortisol level, which showed low a.m. cortisol of 3.60. She currently has labs that are pending at the time of discharge. Ms. Veras is stable for discharge to home. PHYSICAL EXAMINATION: Vital signs are temperature 98.2 oral, heart rate 81, respiratory rate 20, oxygen saturation 99% on room air, blood pressure 154/89. General: Ms. Veras is a well-developed, well-nourished, obese 39-year-old white female, who is sitting up in bed. She appears to be in no acute distress. She has family at bedside. She appears comfortable. HEENT: PERRL. Visual mann grossly intact. Extraocular movements intact. Nonicteric sclerae. Hearing grossly intact. Oral mucous membranes moist without lesions. Cardiovascular: Regular rate and rhythm with S1, S2 present without murmurs, rubs, clicks, or gallops. There is no JVD. Normal sinus rhythm on telemetry. Respiratory: Symmetrical chest expansion without use of accessory muscles. Lungs are clear to auscultation without rhonchi, wheezes, or rales. Abdomen: Obese. Bowel sounds noted in all quadrants. The abdomen is soft. There is no tenderness to palpation. Extremities: Skin is warm and smooth bilaterally without clubbing, cyanosis, or edema. Radial and pedal pulses are palpable. Neuro: The patient is awake. She is alert and oriented x3. Cranial nerves are grossly intact. She is able to move all of her extremities. Motor strength in the upper and lower extremities is 5/5 bilaterally. She has a steady gait without impairment. DISCHARGE PLAN: Ms. Veras will be discharged to home. CONDITION: Good. ACTIVITY: As tolerated. DIET: Heart-healthy, DASH diet. MEDICATIONS: As above. EDUCATION: 1. Follow up with primary care provider tomorrow, as scheduled. Discuss results/continued workup for possible secondary hypertension. Pending labs include ACTH, aldosterone, metanephrines plasma. Discuss medication changes. 2. Check and log blood pressure at least daily and bring log to primary care provider. 3. Return to the ER or nearest hospital if you experience any worsening of symptoms, uncontrolled headache/migraine, uncontrolled blood pressure, dizziness , lightheadedness, changes in speech or movement; return if you experience chest pain, shortness of breath, loss of consciousness, high fevers, chills, night sweats, or any other worrisome signs or symptoms. This is a summarized report of a complex medical history and hospital stay. For further details, please see the entire medical record. TIME SPENT: Approximately 55 minutes was spent on this discharge, greater than half that time was spent [id number] with the patient and her family members discussing discharge plans and instructions. REDD NUNEZ [id number]/[facility] #: [id number] JORGE
== END 2019-04-15 14:00 | disposition home or self-care (01) ==
LOC: ED 14:52 → MEDTELE 20:35
PROVIDERS: ADMIT Internal Medicine; ATTEND Internal Medicine
DX: I16.0 Hypertensive urgency (principal); G43.909 Migraine, unspecified, not intractable, without status migrainosus; F17.210 Nicotine dependence, cigarettes, uncomplicated; R20.0 Anesthesia of skin
CPT/HCPCS: 36415; 70450; 76775; 80053; 82024; 82088; 82533; 83605; 83835; 84439; 84443; 84484; 85025; 93005; 96365; 96366; 96367; 96372; 96375; 96376; 99284; A9270-GY; G0378; J0360; J1650; J1885; J2060; J2765; J3490

== ENCOUNTER 2019-04-21 15:58 | Emergency (ER) | payer OTHER ==
--- OUTSIDE RECORDS SUMMARY | 2019-04-21 16:22 | XMS REPORT | Continuity of Care Document ---
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 Date Identification Numbers Payment Provider Subscriber Policy Number: [id number] [facility] Marlene Mckeonlps PayID: [id number] [place] [address] Problems Active Problems Provider Date Mood disorder [...] Medications SIG Qnty Indications Ordering Provider Date Venlafaxine HCL ER 1 by mouth every 30caps F43.23 Gudelia Cruz, 2018 75mg day [facility] Caps ER 24HR Atenolol 1 by mouth every 30tabs I10 Gudelia Cruz, 04/17/2019 25mg Tablets day [facility] Blood Pressure Cuff auto-inflating 1units Farrukh Buckner, 04/09/2019 [facility] Vitamin D3 take one capsule 16caps Gudelia Cruz, 12/10/2018 [id number] by mouth twice a TO[facility]-C Capsules week for 8 weeks Fluticasone 1 to 2 sprays in 16gm G47.8 Gudelia Cruz, 09/03/2017 Propionate both nares once [facility] 50mcg/Act a day if needed Suspension Ventolin HFA inhale two puffs 18units Gudelia Cruz, 03/22/2016 by mouth every 4 [facility]-C 108(90Base) mcg/Act hours as needed Aerosol for wheeze Magnesium Oxide Unknown 400(241.3Mg) mg Tablets Sumatriptan Succinate Unknown 50mg Tablets Amlodipine Besylate one by mouth 30tabs Gudelia Cruz, every day [facility] 10mg Tablets Sumatriptan Succinate Unknown 50mg Tablets History Medications Atenolol 1 by mouth every 30tabs Farrukh 04/09/2019 - 25mg Tablets day MD Dudley 04/17/2019 Mirtazapine take one tablet by 30tabs G47.00 [facility] R. 11/22/2017 - 15mg mouth at bedtime [facility] 12/10/2018 Tablets sleep, replaces trazodone Amoxicillin/Clavulana 1 tab by mouth 20tabs G47.8 Arina 09/03/2017 - te Potassium twice a day for 10 Shortle, [employer] 11/22/2017 875-125mg days Tablets Meloxicam 1 by mouth daily 30tabs M77.11 [facility] R. 09/18/2016 - 15mg Tablets for pain, take [facility] 11/22/2017 with food Valium take 1 tablet 20tabs F41.9 [facility] R. 02/02/2016 - 5mg Tablets 30-60 minutes [facility]- 11/22/2017 prior to dental appointment may repeat 1 in one hour (mdd=2) Effexor XR 1 by mouth every 30caps F32.9 [facility] RGeovanni 02/02/2016 - 75mg Caps ER day for depression [facility] 11/22/2017 24HR Trazodone HCL Take One Tablet By 30tabs G47.00 [facility] R. 02/02/2016 - 50mg Mouth AT Bedtime [facility] 11/22/2017 Tablets If Needed For Sleep Ergocalciferol 1 by mouth weekly 14caps Gudelia RGeovanni 08/30/2015 - [facility] 11/22/2017 [id number] Capsules Azithromycin take 2 tablets 6tabs 466.0 Estelle Flores, 03/02/2015 - 250mg today then 1 [facility] 08/25/2015 Tablets tablet daily for the next 4 days Ventolin HFA 2 puffs every 1units 466.0 Estelle Flores, 03/02/2015 - every 4-6 hours as [facility] 02/02/2016 108(90Base) mcg/Act needed Aerosol wheezing/tightness Benzonatate 1 by mouth three 45caps 466.0 Estelle Flores, 03/02/2015 - 200mg times a day [facility] 08/25/2015 Capsules Effexor XR 1 by mouth every 30caps Gudelia Rangel 02/17/2015 - 75mg Caps ER day for depression Anthony, [facility] 02/02/2016 24HR Ortho Tri-Cyclen (28) 1 po qd 28tabs 620.2 Estheri R. 02/17/2015 - Storm, [facility] 08/25/2015 0.18/0.215/0.25 mg-35 mcg Tablets Chantix 1 po bid 60tabs 305.1 Estelle Flores, 11/11/2013 - 1mg Tablets [facility] 08/25/2015 Chantix take 1 tablet po 11tabs 305.1 Estelle Flores, 11/11/2013 - 0.5mg Tablets daily days 1-3, [facility] 08/25/2015 take 1 tablet po bid days 4-7, then use maintenance pack Ortho Tri-Cyclen 1 po qd 28tabs 620.2 Estelle Flores, 11/11/2013 - [facility] 02/17/2015 0.18/0.215/0.25 mg-35 mcg Tablets Amitriptyline HCL 1 po qhs for pain 90tabs Gudelia RGeovanni 01/12/2013 - 25mg and sleep [facility], [facility] 08/25/2015 Tablets Robaxin-750 take one tablet by 60tabs 724.5 Gudelia RGeovanni 01/12/2013 - 750mg mouth three times [facility] 08/25/2015 Tablets a day as needed for muscle spasm/ tightness; replaces tizanidine Cymbalta 1 po qam for pain 30caps Gudelia RGeovanni 01/12/2013 - 30mg Caps DR and depression Anthony, [facility] 02/17/2015 Part Penicillin V 1 bid x 10 20tabs 462 Eric Carpio M.D. 01/10/2013 - Potassium 02/09/2013 500mg Tablets Meloxicam 1 po daily for 30tabs M54.89 Eric Carpio M.D. 04/15/2012 - 15mg Tablets pain, take with 02/02/2016 food Flexeril 1/2 to 1 pill q8hr 30tabs 724.5 Gudelia RGeovanni 04/15/2012 - 10mg Tablets prn muscle spasm [facility], [facility] 01/12/2013 Cymbalta 1 po qd 30caps 293.83 Baonttavon R. 07/10/2011 - 60mg Caps DR Cruz [facility] 04/15/2012 Part Amitriptyline HCL 1 po qhs for sleep 30tabs 780.52 Gudelia R. 07/10/2011 - 25mg and migraines [facility] 04/15/2012 Tablets Biaxin 1 po bid for 10 20tabs 462 Gudelia RGeovanni 03/13/2011 - 500mg Tablets days for [facility] 06/26/2011 bronchitis and pharyngitis Trazodone HCL take 1/2 or 1 30tabs 293.83 Baonttavon RGeovanni 02/20/2011 - 50mg tablet at bedtime [facility] 04/15/2012 Tablets if needed Cymbalta one po daily for 30caps 293.83 Gudelia RGeovanni 02/20/2011 - 30mg Caps DR feliz Cruz [facility] 07/10/2011 Part Ultravate apply bid to 50gm 696.1 Gudelia Rangel 02/20/2011 - 0.05% affected sites [facility] 08/25/2015 Ointment Referral To Froilan Ovalle, Breanna Agarwal 08/15/2008 - [facility], 02/20/2011 Treatment [facility] Zithromax Z-Mikey 2 po on day 1, 1 6tabs 466.0 Breanna Agarwal 07/27/2008 - 250mg po on days 2-5 Angely, 08/11/2008 Tablets [facility] Tylenol/Codeine #3 1-2 tabs po every 20tabs 466.0 Breanna AGeovanni 07/27/2008 - #3 6 hours prn Angely, 02/20/2011 Tablets [facility] Ortho Tri-Cyclen 1 PO qd 1pack V25.09 Breanna Agarwal 10/30/2007 - [facility], 02/20/2011 Tablets [facility] Chantix Use as Directed QS 305.1 Breanna Agarwal 10/30/2007 - Starter Pack Angely, 02/20/2011 Misc [facility] Ultravate apply bid to 50gm 696.1 Breanna A. 10/30/2007 - 0.05% affected sites Angely, 02/20/2011 Ointment [facility] Lidex Apply To Affected 30gm 696.1 Breanna A. 10/01/2007 - 0.05% Ointment Areas bid Angely, 10/30/2007 [facility] Amlodipine Besylate Unknown - 04/17/2019 10mg Tablets Medications Administered in Office Medication SIG Qnty Indications Ordering Provider Date Injection Ketorolac GAB Garcia 07/10/2011 Tromethamine Per 15 MG (Toradol) Injection Immunizations CPT Code Status Date Vaccine Lot # [id number] Given 08/08/2016 Tdap (Adacel) [id number] Given 08/08/2016 Influenza Virus Vaccine, Quadrivalent, 3 Yr > [id number] Quad, Preserv Free Vital Signs Date Vital Result Comment 04/17/2019 10:57am Weight 240.25 lb Weight 108.977 kg BP Systolic 142 mmHg BP Diastolic 80 mmHg Heart Rate 90 /min Body Temperature 97.7 F Respiratory Rate 18 /min Right Visual Acuity Distance 20/50 Left Visual Acuity Distance 20/25 Both Visual Acuity Distance 20/25 Without her corrective lenses Last Menstrual Period 4910871 O2 % BldC Oximetry 98 % 04/09/2019 10:18am Weight 247.00 lb Weight 112.039 [...] Mass Index) 42.3 kg/m2 Last Menstrual Period [id number] 08/13/2008 3:50pm Weight 256.00 lb Weight 116.122 [...] Height 66.5 inches 5'6.50" Last Menstrual Period 4087880 O2 % BldC Oximetry 120 % Waist Circumference 70 10/30/2007 12:56pm Weight 236.00 lb Weight 107.050 kg BP Systolic 104 mmHg BP Diastolic 60 mmHg Heart Rate 68 /min Height 66.5 inches 5'6.50" BMI (Body Mass Index) 37.5 kg/m2 Last Menstrual Period 3970747 10/01/2007 2:18pm Weight 234.00 lb Weight 106.142 kg BP Systolic 104 mmHg BP Diastolic 76 mmHg Heart Rate 84 /min Body Temperature 96.9 F O2 % BldC Oximetry 96 % Results Test Date Facility Test Result H/L Range Note Laboratory test 04/14/2019 [facility] Troponin-I 0.00 ng/mL <0.04 1 finding [phone] (TnI) CBC Auto Diff 04/14/2019 [facility] White Blood 12.9 10^3/uL High 3.5-10.8 [phone] Count Red Blood Count 5.02 10^6/uL High 3.70-4.87 Hemoglobin 14.4 g/dL N 12.0-16.0 Hematocrit 43 % N 35-47 Mean Corpuscular Volume 85 fL N 80-97 Mean Corpuscular Hemoglobin 29 pg N 27-31 Mean Corpuscular HGB Conc 34 g/dL N 31-36 Red Cell Distribution Width 14 % N 10-15 Platelet Count 462 10^3/uL High 150-450 Mean Platelet Volume 8.7 fL N 7.4-10.4 Abs Neutrophils 7.9 10^3/uL High 1.5-7.7 Abs Lymphocytes 3.8 10^3/uL N 1.0-4.8 Abs Monocytes 0.8 10^3/uL N 0-0.8 Abs Eosinophils 0.3 10^3/uL N 0-0.6 Abs Basophils 0.1 10^3/uL N 0-0.2 Abs Nucleated RBC 0.0 10^3/uL Granulocyte % 60.9 % Lymphocyte % 29.5 % Monocyte % 6.6 % Eosinophil % 2.1 % Basophil % 0.9 % Nucleated Red Blood Cells % 0.1 Laboratory test 04/14/2019 [facility] Lactic Acid 1.1 mmol/L N 0.5-2.0 2 finding [phone] Troponin-I (TnI) 0.00 ng/mL <0.04 3 Comp Metabolic Panel 04/14/2019 [facility] Sodium 136 mmol/L N 135-145 [phone] Potassium 3.7 mmol/L N 3.5-5.0 Chloride 109 mmol/L N 101-111 Co2 Carbon Dioxide 19 mmol/L Low 22-32 Anion Gap 8 mmol/L N 2-11 Glucose 112 mg/dL High 70-100 Blood Urea Nitrogen 8 mg/dL N 6-24 Creatinine 0.59 mg/dL N 0.51-0.95 BUN/Creatinine Ratio 13.6 N 8-20 Calcium 9.5 mg/dL N 8.6-10.3 Total Protein 7.4 g/dL N 6.4-8.9 Albumin 4.0 g/dL N 3.2-5.2 Globulin 3.4 g/dL N 2-4 Albumin/Globulin Ratio 1.2 N 1-3 Total Bilirubin 0.60 mg/dL N 0.2-1.0 Alkaline Phosphatase 67 U/L N 34-104 Alt 14 U/L N 7-52 Ast 14 U/L N 13-39 Egfr Non- 114.1 >60 Egfr 138.0 >60 4 Laboratory test 04/14/2019 [facility] TSH (Thyroid 1.55 N 0.34-5.60 finding [phone] Stimulating mcIU/mL Horm) Free T4 0.92 ng/dL N 0.61-1.12 Laboratory 04/09/2019 [facility] TSH (Thyroid 2.04 N 0.34-5.60 5, 6 test finding [phone] Stimulating mcIU/mL Horm) C Reactive Protein 15.54 mg/L High <8.01 7 CBC Auto 04/09/2019 [facility] White Blood 12.1 10^3/ uL High 3.5-10.8 Diff [phone] Count Red Blood Count 4.96 10^6/uL High [...] Red Blood Cells % 0.0 Inr/Protime 04/09/2019 [facility] Inr 1.00 N 0.82- 1.09 8 [phone] Laboratory test 04/09/2019 [facility] Partial 35.8 seconds N 26.0-38.0 finding [phone] Thrombo Time PTT Urinalysis 04/09/2019 [facility] Urine Color Straw Profile [phone] Urine Appearance Clear Urine Specific [place] 1.003 Low 1.010-1.030 Urine pH 8.0 N 5-9 Urine Urobilinogen Negative Negative Urine Ketones Negative Negative Urine Protein Negative Negative Urine Leukocytes Negative Negative Urine Blood Negative Negative Urine Nitrite Negative Negative Urine Bilirubin Negative Negative Urine Glucose Negative Negative Comp Metabolic Panel 04/09/2019 [facility] Sodium 138 mmol/L N 135-145 [phone] Potassium 3.9 mmol/L N 3.5-5.0 Chloride 107 mmol/L N 101-111 Co2 Carbon Dioxide 25 mmol/L N 22-32 Anion Gap 6 mmol/L N 2-11 Glucose 104 mg/dL High 70-100 Blood Urea Nitrogen 6 mg/dL N 6-24 Creatinine 0.64 mg/dL N 0.51-0.95 BUN/Creatinine Ratio 9.4 N 8-20 Calcium 9.5 mg/dL N 8.6-10.3 Total Protein 7.6 g/dL N 6.4-8.9 Albumin 4.1 g/dL N 3.2-5.2 Globulin 3.5 g/dL N 2-4 Albumin/Globulin Ratio 1.2 N 1-3 Total Bilirubin 0.40 mg/dL N 0.2-1.0 Alkaline Phosphatase 70 U/L N 34-104 Alt 17 U/L N 7-52 Ast 16 U/L N 13-39 Egfr Non- 103.9 >60 Egfr 125.7 >60 9 Lipid Profile 04/09/2019 [facility] Triglycerides 147 mg/dL 10 (Trig/Chol/HDL) [phone] Cholesterol 201 mg/dL 11 HDL Cholesterol 50.4 mg/dL 12 LDL Cholesterol 121 mg/dL 13 Laboratory test 04/09/2019 [facility] Troponin-I (TnI ) 0.00 ng/mL <0.04 14 finding [phone] Lactic Acid 1.3 mmol/L N 0.5-2.0 15 Type & Screen 04/09/2019 [facility] Patient Blood A Positive [phone] Type Antibody Screen NEGATIVE Laboratory test 04/09/2019 [facility] Point of 105 mg /dL High 70-100 16 finding [phone] Care Glucose CBC Auto Diff 04/07/2019 [facility] White Blood 11.8 High 3.5-10.8 [phone] Count 10^3/uL Red Blood Count 4.95 10^6/uL [...] Cells % 0.0 Comp Metabolic Panel 04/07/2019 [facility] Sodium 135 mmol/L N 135-145 [phone] Potassium 4.2 mmol/L N 3.5-5.0 Chloride 105 [...] Egfr Non- 93.6 >60 Egfr 113.3 >60 17 Laboratory test 04/07/2019 [facility] Magnesium 1.8 mg/dL Low 1.9-2.7 finding [phone] CRP High Sensitivity 13.02 mg/L High <2.00 HCG < 0.60 mIU/mL 18 Urinalysis Profile 04/07/2019 [facility] Urine Color Straw [phone] Urine Appearance Clear Urine Specific [place] 1.003 Low 1.010-1.030 Urine pH 6.0 N [...] Present Abnormal Absent CBC Auto Diff 11/22/2017 [facility] White Blood 9.8 10^3/uL N 3.5-10.8 19 [phone] Count Red Blood Count 4.55 10^6/uL N [...] Cells % 0 Comp Metabolic Panel 11/22/2017 [facility] Sodium 137 mmol/L N 133-145 [phone] Potassium 3.8 mmol/L N 3.5-5.0 Chloride 106 [...] Egfr Non- 117.6 >60 Egfr 151.3 >60 20 Laboratory test 11/22/2017 [facility] TSH (Thyroid 1.12 N 0.34-5.60 21 finding [phone] Stimulating mcIU/mL Horm) Vitamin B12 290 pg/mL N 180-914 22 Vitamin D Total 25(Oh) 21.1 ng/mL N 20-50 23 Laboratory test 10/17/2017 [facility] Rapid Strep Negative Negative 24 finding [phone] Molecular Rapid Influenza 10/17/2017 [facility] Influenza A NEGATIVE Negative 25 A & B Molecular [phone] Molecular Influenza B Molecular NEGATIVE Negative Laboratory test 09/11/2017 [facility] Troponin-I 0.01 <0.04 finding [phone] (TnI) ng/mL CBC Auto Diff 09/10/2017 [facility] White Blood 13.3 High 3.5-10.8 [phone] Count 10^3/uL Red Blood Count 4.67 10^6/uL [...] Blood Cells % 0.1 Laboratory test 09/10/2017 [facility] Lactic Acid 1.2 mmol/L N 0.5-2.0 26 finding [phone] Troponin-I (TnI) 0.00 ng/mL <0.04 Comp Metabolic Panel 09/10/2017 [facility] Sodium 137 mmol/L N 133-145 [phone] Potassium 3.5 mmol/L N 3.5-5.0 Chloride 108 [...] Egfr Non- 125.1 >60 Egfr 160.8 >60 27 Laboratory test 03/06/2016 [facility] Culture Throat SEE RESULT 28 finding [phone] BELOW Laboratory test 03/06/2016 In House Lab Strep Screen neg Neg finding ([phone])- - GC/Chlamydia 08/25/2015 [facility] Chlamydia Negative N Negative Amplified Rna [phone] trachomatis Rna Neisseria gonorrhoeae (GC) Rna Negative N Negative 29 Lipid Profile 08/25/2015 [facility] Triglycerides 89 mg/dL N 30 (Trig/Chol/HDL) [phone] Cholesterol 198 mg/dL N 31 HDL Cholesterol 47.8 mg/dL N 32 LDL Cholesterol 132 mg/dL N 33 Laboratory 08/25/2015 [facility] Hemoglobin 5.1 % N Less than 6.0 34 test finding [phone] A1c (Glyco HGB) HIV 1/2 AB 08/25/2015 [facility] HIV 1 2 Nonreactive N Nonreactive 35 Evaluation [phone] Antibody Laboratory 08/25/2015 [facility] TSH (Thyroid 1.70 ? IU/mL N 0.34-5.60 test finding [phone] Stim Horm) Hepatitis C Antibody Nonreactive N Nonreactive Vitamin D Total 25(Oh) 18.4 ng/mL Low 30-50 Urine DIP 08/25/2015 In House Lab Specific [place] 1.015 1.01-1.02 (607)- - Urine pH 5 5-6 Leukocytes trace Neg Urine Nitrites neg Neg Total Protein, Urine neg Neg Urine Glucose norm Norm Urine Ketones neg Neg Urobilinogen norm Norm Urine Bilirubin neg Neg Urine Blood trace Neg Laboratory test 11/07/2013 [facility] Amylase 41 U/L 20-120 finding [phone] Lipase 20 U/L Low 22-51 C Reactive Protein 0.7 mg/dL High Less than 0.5 Comp Metabolic Panel 11/07/2013 [facility] Sodium 138 mmol/L 133-145 [phone] Potassium 3.7 mmol/L 3.5-5.0 Chloride 103 mmol/L [...] Egfr Non- 143.0 >60 Egfr 183.9 >60 36 CBC Auto 11/07/2013 [facility] White Blood 14.2 10^3/ uL High 4.8-10.8 Diff [phone] Count Red Blood Count 4.73 10^6/uL 4.0-5.4 Hemoglobin [...] 0-2 Nucleated Red Blood Cells % 0 Urine Culture And 11/07/2013 [facility] Urine (SEE NOTE) 37 Sensitivities [phone] Culture Urine Microscopic 11/07/2013 [facility] Urine WBC 1+ (<10 None Seen [phone] /hpf) Urine Mucus Present /lpf Absent Urine Epithelial Cells 2+ Squamous /hpf None Seen Bacteria Urine 1+ None Seen Crystals Urine Amorphous /lpf None Seen Urinalysis 11/07/2013 [facility] Urine Color Yellow [phone] Urine Appearance Clear Urine Specific [place] 1.023 1.010-1.030 Urine Esterase 1+ Abnormal Negative Urine Nitrate Negative Negative Urine Urobilinogen Negative E.U./dL Negative Urine Protein 1+ mg/dL Abnormal Negative Urine pH 8.5 5-9 Urine Blood Negative Negative Urine Ketones Negative mg/dL Negative Urine Bilirubin Negative Negative Urine Glucose Negative mg/dL Negative Urine Microscopic 10/28/2013 [facility] Urine WBC None Seen None Seen [phone] Urine RBC None Seen None Seen Urine Epithelial Cells 1+ Squamous /hpf None Seen Bacteria Urine None Seen None Seen Blood Culture 10/28/2013 [facility] Blood Culture ( SEE NOTE) 38 [phone] CBC Auto Diff 10/28/2013 [facility] White Blood 22.2 High 4.8-10 [phone] Count 10^3/uL .8 Red Blood Count 5.34 [...] Nucleated RBC 0.01 10^3/uL Manual Differential 10/28/2013 [facility] Neutrophil % 79 % 38-83 [phone] Lymphocytes % 12 % Low 25-47 Monocytes % 7 % 0-13 Reactive Lymph % 2 % 0-6 RBC Morphology Normal Normal Comp Metabolic Panel 10/28/2013 [facility] Sodium 135 mmol/L 133-145 [phone] Potassium 3.4 mmol/L Low 3.5-5.0 Chloride 102 [...] Egfr Non- 115.9 >60 Egfr 149.0 >60 39 Laboratory test 10/28/2013 [facility] Amylase 35 U/L 20-120 finding [phone] Lipase 16 U/L Low 22-51 Troponin I 0 ng/mL 0-0.06 40 Alcohol < 10 mg/dL Less Than 10 41 Inr/Protime 10/28/2013 [facility] Inr 1.03 0.85- 1.06 [phone] Urinalysis 10/28/2013 [facility] Urine Color Yellow [phone] Urine Appearance Clear Urine Specific [place] 1.031 High 1.010-1.030 Urine Esterase Negative Negative Urine Nitrate Negative Negative Urine Urobilinogen Negative E.U./dL Negative Urine Protein Negative mg/dL Negative Urine pH 6.5 5-9 Urine Blood Trace Abnormal Negative Urine Ketones Negative mg/dL Negative Urine Bilirubin Negative Negative Urine Glucose Negative mg/dL Negative Laboratory test 10/28/2013 [facility] Lactic Acid 1.5 mmol/L 0.5-1.6 finding [phone] Blood Culture (SEE NOTE) 42 Urine Culture And 04/04/2013 [facility] Urine (SEE NOTE) 43 Sensitivities [phone] Culture Urine Microscopic 04/04/2013 [facility] Urine WBC 1+ (<10 None Seen [phone] /hpf) Urine RBC None Seen None Seen Urine Epithelial Cells 2+ Squamous /hpf None Seen Bacteria Urine 1+ None Seen Urinalysis 04/04/2013 [facility] Urine Color Yellow [phone] Urine Appearance Clear Urine Specific [place] 1.016 1.010-1.030 Urine Esterase Negative Negative Urine Nitrate Positive Abnormal Negative Urine Urobilinogen Negative E.U./dL Negative Urine Protein Negative mg/dL Negative Urine pH 6.5 5-9 Urine Blood Negative Negative Urine Ketones Negative mg/dL Negative Urine Bilirubin Negative Negative Urine Glucose Negative mg/dL Negative Laboratory test finding 01/10/2013 In House Lab Strep Screen neg Neg (607)- - Urinalysis 11/26/2012 [facility] Urine Color Yellow [phone] Urine Appearance Clear Urine Specific [place] 1.019 1.010-1.030 Urine Esterase 1+ Abnormal Negative Urine Nitrate Negative Negative Urine Urobilinogen Negative E.U./dL Negative Urine Protein Negative mg/dL Negative Urine pH 7.0 5-9 Urine Blood 3+ Abnormal Negative Urine Ketones Negative mg/dL Negative Urine Bilirubin Negative Negative Urine Glucose Negative mg/dL Negative Urine Microscopic 11/26/2012 [facility] Urine WBC 1+ (<10 None Seen [phone] /hpf) Urine RBC 3+ (>10 /hpf) None Seen Urine Epithelial Cells 1+ Squamous /hpf None Seen Bacteria Urine 1+ None Seen Urine Culture And 11/26/2012 [facility] Urine (SEE NOTE) 44 Sensitivities [phone] Culture CBC Auto Diff 10/07/2012 [facility] White Blood 13.0 High 4.8-3 [phone] Count 10^3/uL 0.8 Red Blood Count 4.45 10^6/uL 4.0-5.4 Hemoglobin [...] Blood Cells % 0 Laboratory test 10/07/2012 [facility] D Dimer < 200 Less 45 finding [phone] Quantitative ng/mL Than 230 Comp Metabolic 10/07/2012 [facility] Sodium 138 mmol/ L 133-145 Panel [phone] Potassium 3.9 mmol/L 3.5-5.0 Chloride 107 mmol/L [...] Egfr Non- 116.6 >60 Egfr 150.0 >60 46 Laboratory test 10/07/2012 [facility] Creatine Kinase 57 U/L 0-200 finding [phone] CKMB 10/07/2012 [facility] CKMB In NG/ML 0.6 ng/mL 0.3-4.0 [phone] CKMB % 1.0 % 0-9 47 Laboratory 10/07/2012 [facility] Troponin I 0 ng/mL 0-0.06 48 test finding [phone] Laboratory 03/13/2011 In House Lab Strep Screen neg Neg test finding (607)- - Laboratory 03/13/2011 [facility] Throat NF 49 test finding [phone] Culture Full Laboratory 02/20/2011 [facility] Cytology ----- 50 test finding [phone] <SEE NOTE> Rapid Strep A 07/05/2010 [facility] 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 51 [phone] A <SEE NOTE> 04/14/2010 [facility] Specific 1.029 1.010-1.0 (HCG) Urine [phone] [place] 30 Urine NEGATIVE Negative 52 Urinalysis 04/14/2010 [facility] Ua Color YELLOW Yellow [phone] Appearance-Urine CLEAR Clear Specific [place]-Ur 1.030 1.010-1.030 Esterase-Urine NEGATIVE Negative Nitrite NEGATIVE Negative [id number] NEGATIVE Negative Protein-Urine NEGATIVE Negative PH-Urine 6.0 5-9 Blood-Urine NEGATIVE Negative Ketones-Urine NEGATIVE Negative Bilirubin-Ur NEGATIVE Negative Glucose-Urine NEGATIVE Negative Laboratory test 03/01/2010 [facility] Throat-Beta NF 53 finding [phone] Strep Culture Rapid Strep A 03/01/2010 [facility] 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 54 [phone] <SEE NOTE> Laboratory test 04/01/2009 [facility] Urine Culture SN2 55 finding [phone] Sensitivi Urinalysis 04/01/2009 [facility] Ua Color YELLOW W/Microscopic [phone] Appearance-Urine CLOUDY Specific [place]-Ur 1.014 1.010-1.030 Esterase-Urine 3+ Abnormal Negative Nitrite NEGATIVE Negative Pebnnnxaugzb-Tu-GPK NEGATIVE Negative Protein-Urine TRACE Abnormal Negative PH-Urine 7.0 5-9 Blood-Urine 2+ Abnormal Negative Ketones-Urine NEGATIVE Negative Bilirubin-Ur NEGATIVE Negative Glucose-Urine NEGATIVE Negative WBC-Urine TNTC Abnormal 0-5 RBC-Urine 5-10 Abnormal 0-2 Epith Cells-Ur MODERATE Bacteria-Urine TRACE Ua Comments (SEE NOTE) 56 Urinalysis Stat 04/01/2009 [facility] Ua Color YELLOW [phone] Appearance-Urine CLOUDY Specific [place]-Ur 1.014 1.010-1.030 Esterase-Urine 3+ Abnormal Negative Nitrite NEGATIVE Negative Frrxdlehfsra-Us-LTC NEGATIVE Negative Protein-Urine TRACE Abnormal Negative PH-Urine 7.0 5-9 Blood-Urine 2+ Abnormal Negative Ketones-Urine NEGATIVE Negative Bilirubin-Ur NEGATIVE Negative Glucose-Urine NEGATIVE Negative Basic Metabolic 02/10/2009 [facility] Sodium 138 mmol /L 135-145 Panel Stat [phone] Potassium 3.7 mmol/L 3.5-5.0 Chloride 107 mmol/L 101-111 Co2 (Carbon Dioxide) 26.0 mmol/L 22-32 Anion Gap 5.0 mmol/L 2-11 57 Glucose 90 mg/dL 70-100 58 BUN 9 mg/dL 6-24 Creatinine 0.60 mg/dL 0.50-1.40 One Over Creatinine 1.60 BUN/Creatinine Ratio 15.0 8-20 Calcium 8.7 mg/dL 8.1-9.9 59 Laboratory 02/10/2009 [facility] Throat-Beta NF 60 test finding [phone] Strep Culture Rapid Strep A 02/10/2009 [facility] 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 61 [phone] <SEE NOTE> CBC With 02/10/2009 [facility] White Blood 18.1 CUMM High 4.8 Manual Diff [phone] Count -10 Stat .8 Red Cell Count 4.75 CUMM 4.2-5.4 Hemoglobin [...] Absolute Neutrophil Count 14.2 Anisocytosis SLIGHT Laboratory test 01/18/2009 [facility] Monospot Stat NEGATIVE Negative 62 finding [phone] CBC With Manual 01/18/2009 [facility] White Blood 11.9 CUMM High 4.8-10.8 Diff Stat [phone] Count Red Cell Count 4.74 CUMM 4.2-5.4 Hemoglobin [...] Absolute Neutrophil Count 8.3 RBC Morphology NORMAL Rapid Strep A 01/18/2009 [facility] 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 63 [phone] <SEE NOTE> Laboratory test 01/18/2009 [facility] Throat-Beta NF 64 finding [phone] Strep Culture Urine DIP 01/26/2008 In House Lab Leukocytes NEG Neg (607)- - Urine Nitrites NEG Neg Urine pH 8 High 5-6 Total Protein, Urine NEG Neg Urine Glucose NORM Norm Urine Ketones NEG Neg Urobilinogen NORM Norm Urine Bilirubin NEG Neg Urine Blood NEG Neg Specific [place] N/A Low 1.01-1.02 GCCHLTP 01/26/2008 [facility] CHL On Thin Prep NEGATIVE Negative 65 [phone] Vial GC On Thin Prep Vial NEGATIVE Negative 66 Laboratory test 01/26/2008 [facility] Cytology ------ 67 finding [phone] <SEE NOTE> Urine DIP 10/30/2007 In House Lab Leukocytes NEG Neg (607)- - Urine Nitrites NEG Neg Urine pH 5 5-6 Total Protein, Urine NEG Neg Urine Glucose NORM Norm Urine Ketones NEG Neg Urobilinogen NORM Norm Urine Bilirubin NEG Neg Urine Blood 250 High Neg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
--- NOTE | 2019-04-21 16:39 | ED ---
Throat Pain/Nasal Congestion - HPI Summary HPI Summary: The patient is a 39 y/o F presenting to [facility] with a chief complaint of decreased and blurred vision in the right eye accompanied by tingling in the right side of the face with intermittent episodes starting a week ago with worsening since yesterday and is now constant. She reports that she recently had increased BP, and now she is having visual changes. She is unable to see the peripheral vision loss on the right side. She denies pain in the eye and headache. She is not currently in pain. Hx of HTN, migraines. No previous eye problems except glasses as needed. Heavy every day cigarette smoker, no EtOH, marijuana use. - History of Current Complaint Chief Complaint: EDEyeProblem Time Seen by Provider: 04/21/19 16:21 Hx Obtained From: Patient Onset/Duration: Gradual Onset, Lasting Days - one week, Still Present Severity: Severe - Allergies/Home Medications Allergies/Adverse Reactions: Allergies Allergy/AdvReac Type Severity Reaction Status Date / Time No Known Drug Allergies Allergy See Comment Verified 04/21/19 16:01 LOBSTER Allergy Severe Rash And Uncoded 04/21/19 16:01 Itching Home Medications: Home Medications Atenolol 1 tab PO DAILY 04/21/19 [History Confirmed 04/21/19] National Institutes Of Health - NIH Scale Level of Consciousness: Alert/Keenly Responsive Ask Patient the Month and His/Her Age: Both Correct Ask Pt to Open/Close Eyes and Atlassian Administrator/Release Non-Paretic Hand: Both Correctly Best Gaze (Only Horizontal Eye Movement): Normal Visual Field Testing: Complete Hemianopia Facial Paresis-Pt to Smile & Close Eyes or Grimace Symmetry: Normal/Symmetrical Motor Function - Right Arm: No Drift-Holds 10 Seconds Motor Function - Left Arm: No Drift-Holds 10 Seconds Motor Function - Right Leg: No Drift-Holds 10 Seconds Motor Function - Left Leg: No Drift-Holds 10 Seconds Limb Ataxia-Must be out of Proportion to Weakness Present: Absent Sensory (Use Pinprick to Test Arms/Legs/Trunk/Face): Normal Best Language (Describe Picture, Name Items): No Aphasia Dysarthria (Read Several Words): Normal Extinction and Inattention: No Abnormality Total Score: 2 PMH/Surg Hx/FS Hx/Imm Hx Endocrine/Hematology History: Denies: Hx Diabetes, Hx Thyroid Disease Cardiovascular History: Reports: Hx Hypotension, Hx Hypertension - on MEDS Denies: Hx Congestive Heart Failure, Hx Deep Vein Thrombosis, Hx Pacemaker/ ICD, Other Cardiovascular Problems/Disorders Respiratory History: Reports: Other Respiratory Problems/Disorders - SMOKER Denies: Hx Asthma, Hx Chronic Obstructive Pulmonary Disease (COPD) GI History: Denies: Hx Ulcer, Other GI Disorders History: Denies: Hx Renal Disease, Other Problems/Disorders Musculoskeletal History: Reports: Hx Back Problems Sensory History: Reports: Hx Contacts or Glasses Denies: Hx Deafness, Hx Hearing Aid Opthamlomology History: Reports: Hx Contacts or Glasses Neurological History: Reports: Hx Migraine Psychiatric History: Reports: Hx Depression - HX OF - Surgical History Surgery Procedure, Year, and Place: Csections 1999,2001,2006,2008 [facility] EPIDURAL ANESTHESIA. TUBAL LIGATION 2008 [facility] Hx Anesthesia Reactions: No Infectious Disease History: No Infectious Disease History: Denies: Hx Hepatitis, Hx Human Immunodeficiency Virus (HIV), Traveled Outside the [place] in Last 30 Days - Family History Known Family History: Positive: Other - DVT - Social History Alcohol Use: None Hx Substance Use: Yes Substance Use Type: Reports: Marijuana Substance Use Comment - Amount & Last Used: EVERY DAY MARIJUANA SMOKER Hx Tobacco Use: Yes Smoking Status (MU): Heavy Every Day Tobacco Smoker Type: Cigarettes Amount Used/How Often: 17 YR HX 1PPD Length of Time of Smoking/Using Tobacco: 1 PPD Review of Systems Positive: Blurred Vision - in right eye, Other - POSITIVE: decreased vision in the right eye; NEGATIVE: pain in right eye Neurological: Other - tingling in right side of face Negative: Headache All Other Systems Reviewed And Are Negative: Yes Physical Exam - Summary Physical Exam Summary: Appearance: Well-appearing, Well-nourished, lying in bed comfortably Skin: Warm, dry, no obvious rash Eyes: sclera anicteric, no conjunctival pallor ENT: mucous membranes moist, pharynx appears normal Neck: Supple, nontender Respiratory: Clear to auscultation, no signs of respiratory distress Cardiovascular: Normal S1, S2. No murmurs. Normal distal pulses in tibial and radial bilaterally. Abdomen: Soft, nontender, normal active bowel sounds present Musculoskeletal: Normal, Strength/ROM Intact Neurological: A&Ox3, awake and alert, mentation is normal, speech is fluent and appropriate. Right-sided hemianopia. GCS: 15. Psychiatric: affect is normal, does not appear anxious or depressed Triage Information Reviewed: Yes Vital Signs On Initial Exam: Initial Vitals Temp Pulse Resp BP Pulse Ox 98.1 F 82 16 170/95 95 04/21/19 16:00 04/21/19 16:00 04/21/19 16:00 04/21/19 16:00 04/21/19 16:00 Vital Signs Reviewed: Yes - Efren Coma Scale Best Eye Response: 4 - Spontaneous Best Motor Response: 6 - Obeys Commands Best Verbal Response: 5 - Oriented Coma Scale Total: 15 Diagnostics - Vital Signs Vital Signs Temp Pulse Resp BP Pulse Ox 04/21/19 16:00 98.1 F 82 16 170/95 95 - Laboratory Result Diagrams: 04/21/19 16:59 04/21/19 16:59 Lab Statement: Any lab studies that have been ordered have been reviewed, and results considered in the medical decision making process. - Radiology Neck MRA Radiology Interpretation Completed By: Radiologist Summary of Radiographic Findings: No internal carotid artery stenosis by nascet criteria. ED physician has reviewed this report. 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 ED physician has reviewed this report. - EKG 1652 Cardiac Rate: NL - 71 BPM EKG Rhythm: Sinus Rhythm Summary of EKG Findings: NSR at 71 BPM, P waves, QRS complex, and T waves are within normal limits, T waves and intervals are normal, no ischemic changes. This is a normal EKG. EENT Course/Dx - Course Course Of Treatment: The patient is a 39 y/o F presenting to [facility] with a chief complaint of decreased and blurred vision in the right eye accompanied by tingling in the right side of the face with intermittent episodes starting a week ago with worsening since yesterday and is now constant. She reports that she recently had increased BP, and now she is having visual changes. She has peripheral vision loss on the right side. She is not currently in pain. Hx of HTN, migraines. No previous eye problems except glasses as needed. Heavy every day cigarette smoker, no EtOH, marijuana use. Upon physical exam, the patient exhibits right-sided hemianopia. In the ED course, the patient was administered Prohance. Blood work reveals WBC of 11.8, RBC of 4.92, absolute monos of 1.0, and glucose of 122. Toxicology report reveals serum alcohol of <10. EKG reveals NSR at 71 BPM without any ischemic changes. Neck MRA impression: No internal carotid artery stenosis by nascet criteria. 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 I discussed the patient's case with Dr. Jerry. He reports that the patient should be admitted, and imaging. I discussed the patient's case and consult with Dr. Rajput, hospitalist, and she accepts the patient for admission at 1705. At 1900 , the hospitalist suggests transfer of the patient, given findings on MRI/MRA showing occipital cortex CVA and LVO of the L [employer] and distal third of basilar artery, as she is likely to need tertiary care. - Diagnoses Provider Diagnoses: Hemianopia of right eye, Cerebrovascular accident (CVA) due to embolic occlusion of left posterior cerebral artery - Provider Notifications Discussed Care Of Patient With: [place] Jerry - neurology Time Discussed With Above Provider: 16:40 Instructed by Provider To: Other - I discussed the patient's case with Dr. Jerry. He reports that the patient should be admitted, and imaging, including Brain MRI, Head MRA, and Neck MRA, are needed. I discussed the patient's case and consult with Dr. Rajput, hospitalist, and she accepts the patient for admission at 1705. At 1900, the hospitalist suggests transfer of the patient. Discharge - Sign-Out/Discharge Documenting (check all that apply): Patient Departure - Patient is accepted for admission by Dr. Rajput. Patient Received Moderate/Deep Sedation with Procedure: No - Discharge Plan Condition: Stable Disposition: TRANS HIGHER LVL OF CARE FAC Referrals: Gudelia Cruz, CLINICAL BIOSTATISTICS DIRECTOR [Primary Care Provider] - - Billing Disposition and Condition Condition: STABLE Disposition: Trans Higher Lvl of Care Fac - Attestation Statements Document Initiated by Scribe: Yes Documenting Scribe: Deanna Campos Provider For Whom Daylin is Documenting (Include Credential): Dr. Zachary Padgett MD Scribe Attestation: Deanna Shahid scribed for Dr. Zachary Padgett MD on 04/22/19 at 1022. Scribe Documentation Reviewed: Yes Provider Attestation: The documentation as recorded by the scribe, Deanna Campos accurately reflects the service I personally performed and the decisions made by me, Dr. Zachary Padgett MD Status of Daylin Document: Viewed
[2019-04-21 17:11] LABS: ABS Basophils 0.1 10^3/ul (0-0.2); ABS Eosinophils 0.3 10^3/ul (0-0.6); ABS Lymphocytes 3.1 10^3/ul (1.0-4.8); ABS Neutrophils 7.3 10^3/ul (1.5-7.7); Eosinophil % 2.5 %; Hematocrit 42 % (35-47); Hemoglobin 13.9 g/dL (12.0-16.0); Lymphocyte % 26.3 %; Mean Corpuscular HGB Conc 33 g/dL (31-36); Mean Corpuscular Hemoglobin 28 pg (27-31); Mean Corpuscular Volume 85 fL (80-97); Mean Platelet Volume 8.1 fL (7.4-10.4); Platelet Count 424 10^3/uL (150-450); Red Blood Count 4.92 10^6 /uL (3.70-4.87); Red Cell Distribution Width 15 % (10-15); White Blood Count 11.8 10^3/uL (3.5-10.8)
[2019-04-21 17:16] LABS: INR 1.09 (0.82-1.09)
[2019-04-21] MEDS ORDERED: Gadoteridol* (CONTRAST) 279.3 MG/ML 10 ML IV ONE (17:16)
[2019-04-21 17:37] LABS: ALT 12 U/L (7-52); AST 13 U/L (13-39); Albumin 4.2 g/dL (3.2-5.2); Albumin/Globulin Ratio 1.4 (1-3); Alkaline Phosphatase 61 U/L (34-104); Anion Gap 6 mmol/L (2-11); BUN/Creatinine Ratio 17.8 (8-20); Blood Urea Nitrogen 13 mg/dL (6-24); CO2 Carbon Dioxide 25 mmol/L (22-32); Calcium 9.4 mg/dL (8.6-10.3); Chloride 105 mmol/L (101-111); EGFR Non-African American 89.2 (>60); Glucose 122 mg/dL (70-100); Potassium 3.9 mmol/L (3.5-5.0); Sodium 136 mmol/L (135-145); Total Protein 7.2 g/dL (6.4-8.9)
[2019-04-21 17:44] LABS: HCG Pregnancy < 0.60 mIU/mL
[2019-04-21 18:12] LABS: Alcohol < 10 mg/dL (<10)
[2019-04-21 20:16] VITALS: BP 150/100
== END 2019-04-21 20:18 | disposition short-term general hospital (02) ==
LOC: ED 15:58
DX: I63.442 Cerebral infarction due to embolism of left cerebellar artery (principal); H53.47 Heteronymous bilateral field defects; I10 Essential (primary) hypertension; Z79.899 Other long term (current) drug therapy; F17.210 Nicotine dependence, cigarettes, uncomplicated
CPT/HCPCS: 36415; 70544; 70547; 70553; 80053; 80320; 83605; 84484; 84702; 85025; 85610; 93005; 99283; A9579; G0480

== ENCOUNTER 2021-09-01 07:40 | Inpatient (IN) ==
[2021-09-01] MEDS ORDERED: NS 0.9% 1000 ml BAG 1,000 ML IV ONE (07:49)
[2021-09-01 08:03] LABS: ABS Basophils 0.1 10^3/ul (0-0.2); ABS Eosinophils 0.1 10^3/ul (0-0.6); ABS Lymphocytes 2.2 10^3/ul (1.0-4.8); ABS Monocytes 1.1 10^3/ul (0-0.8); ABS Neutrophils 12.2 10^3/ul (1.5-7.7); Eosinophil % 0.5 %; Hematocrit 42 % (35-47); Hemoglobin 14.1 g/dL (12.0-16.0); Lymphocyte % 13.9 %; Mean Corpuscular HGB Conc 34 g/dL (31-36); Mean Corpuscular Hemoglobin 29 pg (27-31); Mean Corpuscular Volume 85 fL (80-97); Mean Platelet Volume 8.2 fL (7.4-10.4); Platelet Count 450 10^3/uL (150-450); Red Blood Count 4.91 10^6 /uL (3.70-4.87); Red Cell Distribution Width 15 % (10-15); White Blood Count 15.7 10^3/uL (3.5-10.8)
[2021-09-01] MEDS ORDERED: Iodixanol (CONTRAST) 320 MG/ML 100 ML SDV IV ONE (08:10)
[2021-09-01 08:19] LABS: Activated Partial Thrombo Time 30.9 seconds (26.0-38.0); INR 1.22 (0.86-1.15)
[2021-09-01 08:29] LABS: ALT 17 U/L (7-52); AST 15 U/L (13-39); Albumin 4.3 g/dL (3.2-5.2); Albumin/Globulin Ratio 1.2 (1-3); Alkaline Phosphatase 70 U/L (35-149); Anion Gap 11 mmol/L (2-11); Blood Urea Nitrogen 6 mg/dL (6-24); CO2 Carbon Dioxide 19 mmol/L (22-32); Calcium 9.5 mg/dL (8.6-10.3); Chloride 103 mmol/L (101-111); Cholesterol 180 mg/dL; Globulin 3.7 g/dL (2-4); Glucose 167 mg/dL (70-100); HDL Cholesterol 48.4 mg/dL; LDL Cholesterol 118 mg/dL; Potassium 3.3 mmol/L (3.5-5.0); Sodium 133 mmol/L (135-145); Triglycerides 67 mg/dL
[2021-09-01 08:36] LABS: HCG Pregnancy < 0.60 mIU/mL
[2021-09-01] MEDS ORDERED: Labetalol IV 5 MG/ML 20 ml VIAL IV PUSH ONE (08:41)
[2021-09-01] MEDS ORDERED: Lactated Ringers 1000 ml BAG 1,000 ML IV ONE (08:42)
[2021-09-01 08:58] LABS: Creatine Kinase 82 U/L (10-223)
[2021-09-01 09:56] LABS: Urine Appearance Cloudy; Urine Bilirubin Negative (Negative); Urine Blood Negative (Negative); Urine Color Straw; Urine Glucose Negative (Negative); Urine Ketones Negative (Negative); Urine Nitrite Negative (Negative); Urine Protein Negative (Negative); Urine Specific Gravity 1.026 (1.002-1.030); Urine Urobilinogen Negative (Negative)
[2021-09-01 12:01] LABS: Rapid COVID-19 Molecular Undetected (Undetected)
[2021-09-01] MEDS ORDERED: Potassium Chlor 20 meq TAB.ER PO ONE (14:43)
[2021-09-01] MEDS ORDERED: Nicotine PATCH 21 MG/24 HR PATCH TRANSDERM ONE (16:24)
[2021-09-01] MEDS: Nystatin TOP POWDER 15 GM BTL TOPICAL SCH (23:04)
[2021-09-01 23:36] LABS: Urine Benzodiazepine Screen None Detected (None Detect); Urine Cannabinoids Screen Presumptive Positive (None Detect); Urine Opiates Screen None Detected (None Detect)
[2021-09-02 06:32] LABS: ABS Basophils 0.1 10^3/ul (0-0.2); ABS Eosinophils 0.3 10^3/ul (0-0.6); ABS Monocytes 0.8 10^3/ul (0-0.8); ABS Neutrophils 4.5 10^3/ul (1.5-7.7); Eosinophil % 3.4 %; Hematocrit 38 % (35-47); Hemoglobin 12.9 g/dL (12.0-16.0); Lymphocyte % 34.5 %; Mean Corpuscular HGB Conc 34 g/dL (31-36); Mean Corpuscular Hemoglobin 29 pg (27-31); Mean Corpuscular Volume 85 fL (80-97); Mean Platelet Volume 8.4 fL (7.4-10.4); Nucleated Red Blood Cells % 0.1; Platelet Count 386 10^3/uL (150-450); Red Blood Count 4.48 10^6 /uL (3.70-4.87); Red Cell Distribution Width 15 % (10-15); White Blood Count 8.7 10^3/uL (3.5-10.8)
[2021-09-02 06:54] LABS: C Reactive Protein 9.77 mg/L (<8.01); Calcium 9.1 mg/dL (8.6-10.3); Potassium 3.6 mmol/L (3.5-5.0)
[2021-09-02] MEDS: Nystatin TOP POWDER 15 GM BTL TOPICAL SCH ×3 (09:26→20:07)
[2021-09-02] MEDS: Aspirin EC 81 mg TAB.EC (enteric coated) PO SCH (09:26)
[2021-09-02] MEDS ORDERED: Lidocaine 4% GEL 10 GM TUBE TOPICAL PRN (12:31)
[2021-09-02] MEDS ORDERED: Nicotine GUM 4MG FRUIT FLAVOR PO PRN (16:42)
[2021-09-02] MEDS ORDERED: Nicotine Lozenge mini 2 MG LOZNG.MINI MT PRN (16:42)
[2021-09-03] MEDS ORDERED: Perflutren Lipid Microsphere 3 ML VIAL ONE (08:00)
[2021-09-03] MEDS: Aspirin EC 81 mg TAB.EC (enteric coated) PO SCH (09:02)
[2021-09-03] MEDS: Nystatin TOP POWDER 15 GM BTL TOPICAL SCH ×3 (09:09→21:56)
[2021-09-03 10:36] LABS: Hematocrit 38 % (35-47); Hemoglobin 12.7 g/dL (12.0-16.0); Mean Corpuscular HGB Conc 34 g/dL (31-36); Mean Corpuscular Hemoglobin 29 pg (27-31); Mean Corpuscular Volume 85 fL (80-97); Mean Platelet Volume 8.4 fL (7.4-10.4); Platelet Count 358 10^3/uL (150-450); Red Blood Count 4.45 10^6 /uL (3.70-4.87); Red Cell Distribution Width 15 % (10-15); White Blood Count 11.2 10^3/uL (3.5-10.8)
[2021-09-03 10:46] LABS: Calcium 8.7 mg/dL (8.6-10.3); Potassium 3.8 mmol/L (3.5-5.0)
[2021-09-03] MEDS ORDERED: cefTRIAXone 1 gm/50 mL NS BAG 1 GM/50 ML BAG IVPB SCH (12:00)
[2021-09-04 06:37] LABS: Hematocrit 40 % (35-47); Hemoglobin 13.2 g/dL (12.0-16.0); Mean Corpuscular HGB Conc 33 g/dL (31-36); Mean Corpuscular Hemoglobin 29 pg (27-31); Mean Corpuscular Volume 85 fL (80-97); Mean Platelet Volume 8.6 fL (7.4-10.4); Platelet Count 353 10^3/uL (150-450); Red Blood Count 4.65 10^6 /uL (3.70-4.87); Red Cell Distribution Width 15 % (10-15); White Blood Count 8.9 10^3/uL (3.5-10.8)
[2021-09-04 06:50] LABS: Calcium 8.9 mg/dL (8.6-10.3); Magnesium 1.7 mg/dL (1.9-2.7); Potassium 3.6 mmol/L (3.5-5.0)
[2021-09-04] MEDS ORDERED: Magnesium Sulfate 2 gm BAG 2 GM/50 ML BAG IVPB ONE (07:16)
[2021-09-04] MEDS: Aspirin EC 81 mg TAB.EC (enteric coated) PO SCH (08:33)
[2021-09-04] MEDS: Nystatin TOP POWDER 15 GM BTL TOPICAL SCH ×3 (08:33→21:46)
[2021-09-05 08:41] LABS: Hematocrit 40 % (35-47); Hemoglobin 13.6 g/dL (12.0-16.0); Mean Corpuscular HGB Conc 34 g/dL (31-36); Mean Corpuscular Hemoglobin 28 pg (27-31); Mean Corpuscular Volume 84 fL (80-97); Mean Platelet Volume 8.2 fL (7.4-10.4); Platelet Count 382 10^3/uL (150-450); Red Blood Count 4.78 10^6 /uL (3.70-4.87); Red Cell Distribution Width 15 % (10-15); White Blood Count 8.9 10^3/uL (3.5-10.8)
[2021-09-05] MEDS: Nystatin TOP POWDER 15 GM BTL TOPICAL SCH ×3 (09:10→20:01)
[2021-09-05] MEDS: Aspirin EC 81 mg TAB.EC (enteric coated) PO SCH (09:10)
[2021-09-06] MEDS: Aspirin EC 81 mg TAB.EC (enteric coated) PO SCH (08:39)
[2021-09-06] MEDS: Nystatin TOP POWDER 15 GM BTL TOPICAL SCH ×2 (09:35→14:14)
[2021-09-06 13:40] VITALS: BP 138/60
== END 2021-09-06 16:25 | DRG 45 ==
LOC: ED 07:40 → EDHOLD 07:40 → SUATTDRO 10:38 → EDHOLD 17:13 → MEDTELE 17:38 → PMRU 09-06 16:15
PROVIDERS: ADMIT Internal Medicine; ATTEND Internal Medicine

== ENCOUNTER 2021-09-06 11:46 | Inpatient (IN) ==
[2021-09-06] MEDS ORDERED: Senna TAB 8.6 mg TAB PO PRN (16:44)
[2021-09-06] MEDS ORDERED: Magnesium Hydroxide LIQ 30 ML UDC PO PRN (16:44)
[2021-09-07 08:45] LABS: ABS Basophils 0.1 10^3/ul (0-0.2); ABS Eosinophils 0.2 10^3/ul (0-0.6); ABS Lymphocytes 2.2 10^3/ul (1.0-4.8); ABS Monocytes 0.6 10^3/ul (0-0.8); ABS Neutrophils 5.7 10^3/ul (1.5-7.7); Eosinophil % 2.8 %; Hematocrit 42 % (35-47); Hemoglobin 13.8 g/dL (12.0-16.0); Mean Corpuscular HGB Conc 33 g/dL (31-36); Mean Corpuscular Hemoglobin 28 pg (27-31); Mean Corpuscular Volume 85 fL (80-97); Mean Platelet Volume 8.6 fL (7.4-10.4); Platelet Count 423 10^3/uL (150-450); Red Blood Count 4.86 10^6 /uL (3.70-4.87); Red Cell Distribution Width 15 % (10-15); White Blood Count 8.9 10^3/uL (3.5-10.8)
[2021-09-07 08:59] LABS: INR 1.14 (0.86-1.15)
[2021-09-07] MEDS: Nicotine PATCH 21 MG/24 HR PATCH TRANSDERM SCH (10:08)
[2021-09-07] MEDS: Heparin 5000 UNITS/ML 1 mL VIAL SUBCUT SCH ×2 (10:08→20:54)
[2021-09-07] MEDS: Aspirin EC 81 mg TAB.EC (enteric coated) PO SCH (10:08)
[2021-09-08 07:04] LABS: ABS Basophils 0.1 10^3/ul (0-0.2); ABS Eosinophils 0.3 10^3/ul (0-0.6); ABS Lymphocytes 2.3 10^3/ul (1.0-4.8); ABS Monocytes 0.7 10^3/ul (0-0.8); ABS Neutrophils 4.8 10^3/ul (1.5-7.7); Eosinophil % 3.4 %; Hematocrit 39 % (35-47); Hemoglobin 13.3 g/dL (12.0-16.0); Lymphocyte % 28.5 %; Mean Corpuscular HGB Conc 34 g/dL (31-36); Mean Corpuscular Hemoglobin 29 pg (27-31); Mean Corpuscular Volume 85 fL (80-97); Mean Platelet Volume 8.5 fL (7.4-10.4); Platelet Count 399 10^3/uL (150-450); Red Blood Count 4.62 10^6 /uL (3.70-4.87); Red Cell Distribution Width 15 % (10-15); White Blood Count 8.2 10^3/uL (3.5-10.8)
[2021-09-08 07:21] LABS: Albumin 3.7 g/dL (3.2-5.2); Albumin/Globulin Ratio 1.2 (1-3); Globulin 3.2 g/dL (2-4); Potassium 4.1 mmol/L (3.5-5.0); Total Bilirubin 0.5 mg/dL (0.2-1.0); Total Protein 6.9 g/dL (6.4-8.9)
[2021-09-08] MEDS: Nicotine PATCH 21 MG/24 HR PATCH TRANSDERM SCH (08:57)
[2021-09-08] MEDS: Aspirin EC 81 mg TAB.EC (enteric coated) PO SCH (08:57)
[2021-09-08] MEDS: Heparin 5000 UNITS/ML 1 mL VIAL SUBCUT SCH ×2 (08:58→20:54)
[2021-09-08] MEDS: Nystatin TOP POWDER 15 GM BTL TOPICAL SCH ×2 (18:03→21:30)
[2021-09-09] MEDS: Nicotine PATCH 21 MG/24 HR PATCH TRANSDERM SCH (10:44)
[2021-09-09] MEDS: Nystatin TOP POWDER 15 GM BTL TOPICAL SCH ×3 (10:45→22:27)
[2021-09-09] MEDS: Heparin 5000 UNITS/ML 1 mL VIAL SUBCUT SCH ×2 (10:45→20:52)
[2021-09-09] MEDS: Aspirin EC 81 mg TAB.EC (enteric coated) PO SCH (10:45)
[2021-09-10 07:33] LABS: ABS Basophils 0.1 10^3/ul (0-0.2); ABS Eosinophils 0.2 10^3/ul (0-0.6); ABS Lymphocytes 2.5 10^3/ul (1.0-4.8); ABS Monocytes 0.7 10^3/ul (0-0.8); Eosinophil % 2.5 %; Hematocrit 40 % (35-47); Hemoglobin 13.6 g/dL (12.0-16.0); Lymphocyte % 26.3 %; Mean Corpuscular HGB Conc 34 g/dL (31-36); Mean Corpuscular Hemoglobin 29 pg (27-31); Mean Corpuscular Volume 85 fL (80-97); Mean Platelet Volume 8.5 fL (7.4-10.4); Platelet Count 408 10^3/uL (150-450); Red Blood Count 4.73 10^6 /uL (3.70-4.87); Red Cell Distribution Width 15 % (10-15); White Blood Count 9.6 10^3/uL (3.5-10.8)
[2021-09-10] MEDS: Heparin 5000 UNITS/ML 1 mL VIAL SUBCUT SCH ×2 (09:31→20:43)
[2021-09-10] MEDS: Aspirin EC 81 mg TAB.EC (enteric coated) PO SCH (09:31)
[2021-09-10] MEDS: Nicotine PATCH 21 MG/24 HR PATCH TRANSDERM SCH (09:31)
[2021-09-10] MEDS: Nystatin TOP POWDER 15 GM BTL TOPICAL SCH ×3 (09:32→20:43)
[2021-09-10 14:00] LABS: Urine Appearance Cloudy; Urine Bilirubin Negative (Negative); Urine Blood 2+ (Negative); Urine Color Straw; Urine Glucose Negative (Negative); Urine Ketones Negative (Negative); Urine Nitrite Negative (Negative); Urine Protein Negative (Negative); Urine Specific Gravity 1.008 (1.002-1.030); Urine Urobilinogen Negative (Negative)
[2021-09-10 14:18] LABS: Urine Bacteria Absent (Absent); Urine Red Blood Cell Trace(0-2/hpf) (Absent); Urine Squamous Epithelial Cell Present (Absent); Urine White Blood Cell Trace(0-5/hpf) (Absent)
[2021-09-11] MEDS: Aspirin EC 81 mg TAB.EC (enteric coated) PO SCH (08:29)
[2021-09-11] MEDS: Heparin 5000 UNITS/ML 1 mL VIAL SUBCUT SCH ×2 (08:31→22:02)
[2021-09-11] MEDS: Nicotine PATCH 21 MG/24 HR PATCH TRANSDERM SCH (08:39)
[2021-09-11] MEDS: Nystatin TOP POWDER 15 GM BTL TOPICAL SCH ×3 (08:40→22:02)
[2021-09-12 07:40] VITALS: BP 112/78
[2021-09-12] MEDS: Heparin 5000 UNITS/ML 1 mL VIAL SUBCUT SCH (09:11)
[2021-09-12] MEDS: Aspirin EC 81 mg TAB.EC (enteric coated) PO SCH (09:11)
[2021-09-12] MEDS: Nystatin TOP POWDER 15 GM BTL TOPICAL SCH (09:11)
[2021-09-12] MEDS: Nicotine PATCH 21 MG/24 HR PATCH TRANSDERM SCH (09:11)
== END 2021-09-12 16:00 | disposition home or self-care (01) | DRG 58 ==
LOC: PMRU 16:27
PROVIDERS: ADMIT Physical Medicine & Rehabilitation; ATTEND Physical Medicine & Rehabilitation